=== PATIENT | female | born 1960 | race Caucasian/White ===

== ENCOUNTER 2019-11-04 09:23 | Outpatient (CLI) | payer OTHER, SELFPAY ==
[2019-11-04 10:06] LABS: Basophils Absolute Auto 0.1 K/mm3 (0.0-0.1); Basophils Percent Auto 0.8 % (0.2-1.2); Eosinophils Absolute Auto 0.3 K/mm3 (0-0.3); Eosinophils Percent Auto 4.5 % (0-4.4); Hematocrit 37.3 % (37.0-47.0); Hemoglobin 12.3 g/dL (12.0-15.0); Immature Granulocyte Absolute 0.02 K/mm3 (0.00-0.031); Immature Granulocyte Percent A 0.3 % (0-0.5); Lymphocytes Percent Auto 30.5 % (18.3-44.2); Mean Corpuscular Hemoglobin 29.8 pg (26-34); Mean Corpuscular Volume 90.3 fl (80-100); Mean Platelet Volume 9.8 fl (7.4-10.4); Monocytes Absolute Auto 0.6 K/mm3 (0.1-0.6); Monocytes Percent Auto 9.6 % (2.6-8.5); Neutrophils Absolute Auto 3.4 K/mm3 (1.3-6.7); Neutrophils Percent Auto 54.3 % (45.5-73.1); Platelet Count Result 234 k/mm3 (150-375); Red Blood Count 4.13 M/mm3 (4.2-5.4); Red Cell Distribution Width 13.1 % (11.5-14.5); White Blood Count 6.2 K/mm3 (4.5-10.0)
[2019-11-04 10:21] LABS: Aspartate Amino Transferase 31 U/L (14-36); Blood Urea Nitrogen 22 mg/dL (7-17); Calcium 10.1 mg/dL (8.4-10.2); Carbon Dioxide 28 mmol/L (22-30); Chloride 103 mmol/L (98-107); Estimated Glomerular Filt Rate > 60; Glucose 108 mg/dL (65-105); Potassium 4.5 mmol/L (3.4-5.0); Sodium 137 mmol/L (137-145)
== END 2019-11-04 09:24 | disposition home or self-care (01) ==
PROVIDERS: PCP Internal Medicine; Visit Provider Physician Assistant Surgical
DX: Z79.1 Long term (current) use of non-steroidal anti-inflammatories (NSAID) (principal)
CPT/HCPCS: 36415; 80048; 84450; 85025

== ENCOUNTER 2020-02-04 10:00 | Outpatient (CLI) | payer OTHER, SELFPAY ==
--- NOTE | ~2020-02-04 | MM_ITS ---
EXAMINATION: MM screening armin BI w chente HISTORY: Screening mammogram TECHNIQUE: Craniocaudal and mediolateral oblique 3-D tomosynthesis images were obtained and synthetic 2-D images were generated. CAD analysis was submitted and interpreted. COMPARISON: 01/25/2019, 01/21/2018, 01/19/2017 bilateral digital screening mammogram examinations BREAST PARENCHYMAL COMPOSITION: The breasts are almost entirely fatty. FINDINGS: Small stable circumscribed low-density benign-appearing axillary tail nodes are noted bilat erally. There is no evidence of suspicious mass, calcification, or architectural distortion to sugges t malignancy in either breast. There has been no suspicious interval change. IMPRESSION: 1. No mammographic evidence of malignancy. 2. Recommend routine screening mammography in one year. BI-RADS Category 2: Benign finding(s). Reviewed, dictated and finalized at location A.
== END 2020-02-04 10:01 | disposition home or self-care (01) ==
LOC: ANHIMG 10:01
PROVIDERS: PCP Internal Medicine; Visit Provider Obstetrics & Gynecology
DX: Z12.31 Encounter for screening mammogram for malignant neoplasm of breast (principal)
CPT/HCPCS: 77063; 77067

== ENCOUNTER 2020-04-10 10:40 | Outpatient (CLI) | payer OTHER, SELFPAY ==
[2020-04-10 11:08] LABS: Alanine Aminotransferase 39 U/L (4-35); Albumin Level 4.3 g/dL (3.5-5.1); Alkaline Phosphatase 107 U/L (38-126); Anion Gap 6 mmol/L (8-16); Aspartate Amino Transferase 39 U/L (14-36); Bilirubin,Total 0.6 mg/dL (0.2-1.3); Blood Urea Nitrogen 13 mg/dL (7-17); Calcium 10.5 mg/dL (8.4-10.2); Carbon Dioxide 32 mmol/L (22-30); Chloride 102 mmol/L (98-107); Cholesterol 187 mg/dL (0-200); Estimated Glomerular Filt Rate > 60; Glucose 108 mg/dL (65-105); HDL Direct 50 mg/dL; Potassium 4.5 mmol/L (3.4-5.0); Sodium 140 mmol/L (137-145); Triglycerides 128 mg/dL (<150)
[2020-04-10 11:19] LABS: LDL Cholesterol Direct 79 mg/dL
[2020-04-10 11:31] LABS: Hemoglobin A1C 5.8 % (<5.7)
[2020-04-10 12:04] LABS: Vitamin D 25 Hydroxy 48.8 ng/mL
== END 2020-04-10 10:41 | disposition home or self-care (01) ==
LOC: ANHLAB 10:41
PROVIDERS: PCP Internal Medicine; Visit Provider Nurse Practitioner
DX: Z13.6 Encounter for screening for cardiovascular disorders (principal); R73.02 Impaired glucose tolerance (oral); E55.9 Vitamin D deficiency, unspecified
CPT/HCPCS: 36415; 80053; 80061; 82306; 83036

== ENCOUNTER 2020-05-08 08:40 | Outpatient (CLI) | payer OTHER, SELFPAY ==
[2020-05-08 09:09] LABS: Calcium 10.1 mg/dL (8.4-10.2)
[2020-05-10 11:46] LABS: Parathyroid Intact 32.4 pg/mL (7.5-53.5)
== END 2020-05-08 08:41 | disposition home or self-care (01) ==
LOC: ANHLAB 08:41
PROVIDERS: PCP Internal Medicine; Visit Provider Internal Medicine
DX: E83.52 Hypercalcemia (principal)
CPT/HCPCS: 36415; 82310; 83970

== ENCOUNTER 2020-05-22 11:59 | Outpatient (CLI) | payer OTHER, SELFPAY ==
[2020-05-22 09:19] LABS: Anion Gap 4 mmol/L (8-16); Blood Urea Nitrogen 17 mg/dL (7-17); Calcium 9.4 mg/dL (8.4-10.2); Carbon Dioxide 32 mmol/L (22-30); Chloride 99 mmol/L (98-107); Estimated Glomerular Filt Rate > 60; Glucose 102 mg/dL (65-105); Potassium 3.8 mmol/L (3.4-5.0); Sodium 135 mmol/L (137-145)
== END 2020-05-22 12:00 ==
LOC: ANHIMG 06-16 11:59
PROVIDERS: PCP Internal Medicine; Visit Provider Nurse Practitioner
DX: I10 Essential (primary) hypertension (principal)
CPT/HCPCS: 36415; 80048

== ENCOUNTER 2020-07-24 08:56 | Outpatient (CLI) | payer OTHER, SELFPAY ==
[2020-07-24 09:18] LABS: Basophils Absolute Auto 0.1 K/mm3 (0.0-0.1); Basophils Percent Auto 0.8 % (0.2-1.2); Eosinophils Absolute Auto 0.2 K/mm3 (0-0.3); Eosinophils Percent Auto 2.9 % (0-4.4); Hematocrit 36.8 % (37.0-47.0); Hemoglobin 12.4 g/dL (12.0-15.0); Immature Granulocyte Absolute 0.01 K/mm3 (0.00-0.031); Immature Granulocyte Percent A 0.2 % (0-0.5); Lymphocytes Absolute Auto 1.78 K/mm3 (0.9-3.2); Lymphocytes Percent Auto 27.3 % (18.3-44.2); Mean Corpuscular HGB Conc 33.7 g/dl (32-36); Mean Corpuscular Hemoglobin 30.4 pg (26-34); Mean Corpuscular Volume 90.2 fl (80-100); Mean Platelet Volume 9.6 fl (7.4-10.4); Monocytes Absolute Auto 0.6 K/mm3 (0.1-0.6); Monocytes Percent Auto 8.6 % (2.6-8.5); Neutrophils Absolute Auto 3.9 K/mm3 (1.3-6.7); Neutrophils Percent Auto 60.2 % (45.5-73.1); Platelet Count Result 238 k/mm3 (150-375); Red Blood Count 4.08 M/mm3 (4.2-5.4); Red Cell Distribution Width 12.9 % (11.5-14.5); White Blood Count 6.5 K/mm3 (4.5-10.0)
[2020-07-24 10:21] LABS: Anion Gap 4 mmol/L (8-16); Aspartate Amino Transferase 32 U/L (14-36); Blood Urea Nitrogen 18 mg/dL (7-17); Calcium 10.1 mg/dL (8.4-10.2); Carbon Dioxide 27 mmol/L (22-30); Chloride 107 mmol/L (98-107); Estimated Glomerular Filt Rate > 60; Glucose 105 mg/dL (65-105); Potassium 4.2 mmol/L (3.4-5.0); Sodium 138 mmol/L (137-145)
== END 2020-07-24 08:57 | disposition home or self-care (01) ==
LOC: ANHLAB 08:57
PROVIDERS: PCP Internal Medicine; Visit Provider Orthopaedic Surgery
DX: Z79.1 Long term (current) use of non-steroidal anti-inflammatories (NSAID) (principal)
CPT/HCPCS: 36415; 80048; 84450; 85025

== ENCOUNTER 2020-10-29 08:00 | Outpatient (CLI) | payer OTHER, SELFPAY ==
[2020-10-29 08:31] LABS: Alanine Aminotransferase 33 U/L (4-35); Albumin Level 4.2 g/dL (3.5-5.1); Alkaline Phosphatase 97 U/L (38-126); Anion Gap 5 mmol/L (8-16); Aspartate Amino Transferase 35 U/L (14-36); Bilirubin,Total 0.2 mg/dL (0.2-1.3); Blood Urea Nitrogen 24 mg/dL (7-17); Calcium 10.1 mg/dL (8.4-10.2); Carbon Dioxide 28 mmol/L (22-30); Chloride 105 mmol/L (98-107); Cholesterol 183 mg/dL (0-200); Estimated Glomerular Filt Rate > 60; Glucose 105 mg/dL (65-105); HDL Direct 58 mg/dL; Potassium 4.5 mmol/L (3.4-5.0); Sodium 138 mmol/L (137-145); Triglycerides 130 mg/dL (<150)
[2020-10-29 08:34] LABS: Hemoglobin A1C 5.7 % (<5.7)
[2020-10-29 08:42] LABS: LDL Cholesterol Direct 64 mg/dL
[2020-10-29 09:20] LABS: Vitamin D 25 Hydroxy 49.4 ng/mL
== END 2020-10-29 08:01 | disposition home or self-care (01) ==
LOC: ANHLAB 08:02
PROVIDERS: PCP Internal Medicine; Visit Provider Internal Medicine
DX: I10 Essential (primary) hypertension (principal); E55.9 Vitamin D deficiency, unspecified; R73.02 Impaired glucose tolerance (oral); E78.5 Hyperlipidemia, unspecified
CPT/HCPCS: 36415; 80053; 80061; 82306; 83036

== ENCOUNTER 2021-01-28 10:30 | Outpatient (CLI) | payer OTHER, SELFPAY ==
[2021-01-28 11:06] LABS: Basophils Percent Auto 0.6 % (0.2-1.2); Eosinophils Absolute Auto 0.7 K/mm3 (0-0.3); Eosinophils Percent Auto 10.3 % (0-4.4); Hematocrit 36.1 % (37.0-47.0); Hemoglobin 12.2 g/dL (12.0-15.0); Immature Granulocyte Absolute 0.01 K/mm3 (0.00-0.031); Immature Granulocyte Percent A 0.1 % (0-0.5); Lymphocytes Percent Auto 24.3 % (18.3-44.2); Mean Corpuscular HGB Conc 33.8 g/dl (32-36); Mean Corpuscular Hemoglobin 30.2 pg (26-34); Mean Corpuscular Volume 89.4 fl (80-100); Mean Platelet Volume 9.8 fl (7.4-10.4); Monocytes Absolute Auto 0.5 K/mm3 (0.1-0.6); Monocytes Percent Auto 7.2 % (2.6-8.5); Neutrophils Percent Auto 57.5 % (45.5-73.1); Platelet Count Result 230 k/mm3 (150-375); Red Blood Count 4.04 M/mm3 (4.2-5.4); Red Cell Distribution Width 12.6 % (11.5-14.5)
[2021-01-28 11:25] LABS: Anion Gap 7 mmol/L (8-16); Aspartate Amino Transferase 32 U/L (14-36); Blood Urea Nitrogen 21 mg/dL (7-17); Calcium 10.2 mg/dL (8.4-10.2); Carbon Dioxide 26 mmol/L (22-30); Chloride 105 mmol/L (98-107); Estimated Glomerular Filt Rate > 60; Glucose 116 mg/dL (65-110); Potassium 3.9 mmol/L (3.4-5.0); Sodium 138 mmol/L (137-145)
== END 2021-01-28 10:31 | disposition home or self-care (01) ==
PROVIDERS: PCP Internal Medicine; Visit Provider Physician Assistant Surgical
DX: Z51.81 Encounter for therapeutic drug level monitoring (principal); Z79.1 Long term (current) use of non-steroidal anti-inflammatories (NSAID)
CPT/HCPCS: 36415; 80048; 84450; 85025

== ENCOUNTER 2021-02-07 08:03 | Outpatient (CLI) | payer OTHER, SELFPAY ==
--- NOTE | ~2021-02-07 | MM_ITS ---
EXAMINATION: MM screening armin BI w chente HISTORY: Screening TECHNIQUE: Craniocaudal and mediolateral oblique 3-D tomosynthesis images were obtained and synthetic 2-D images were generated. CAD analysis was submitted and interpreted. COMPARISON: Comparison to multiple prior studies sequentially, with oldest reviewed study dated 01/21. BREAST PARENCHYMAL COMPOSITION: There are scattered areas of fibroglandular density. FINDINGS: There is no evidence of suspicious mass, calcification, or architectural distortion to sugg est malignancy in either breast. There has been no suspicious interval change. IMPRESSION: 1. No mammographic evidence of malignancy. 2. Recommend routine screening mammography in one year. BI-RADS Category 1: Negative Reviewed, dictated and finalized at location A.
== END 2021-02-07 08:04 | disposition home or self-care (01) ==
LOC: ANHIMG 08:05
PROVIDERS: PCP Internal Medicine; Visit Provider Student in an Organized Health Care Education/Training Program
DX: Z12.31 Encounter for screening mammogram for malignant neoplasm of breast (principal)
CPT/HCPCS: 77063; 77067

== ENCOUNTER 2021-05-14 09:10 | Outpatient (CLI) | payer OTHER, SELFPAY ==
[2021-05-14 10:29] LABS: Alanine Aminotransferase 68 U/L (4-35); Albumin Level 4.4 g/dL (3.5-5.1); Alkaline Phosphatase 111 U/L (38-126); Anion Gap 7 mmol/L (8-16); Aspartate Amino Transferase 48 U/L (14-36); Bilirubin,Total 0.6 mg/dL (0.2-1.3); Blood Urea Nitrogen 17 mg/dL (7-17); Calcium 10.3 mg/dL (8.4-10.2); Carbon Dioxide 28 mmol/L (22-30); Chloride 103 mmol/L (98-107); Estimated Glomerular Filt Rate > 60; Glucose 108 mg/dL (65-110); Potassium 4.4 mmol/L (3.4-5.0); Sodium 138 mmol/L (137-145)
[2021-05-14 10:46] LABS: Free T4 Free Thyroxine 0.96 ng/mL (0.78-2.19)
[2021-05-14 12:34] LABS: Hemoglobin A1C 5.6 % (<5.7)
== END 2021-05-14 09:11 | disposition home or self-care (01) ==
LOC: ANHLAB 09:11
PROVIDERS: PCP Internal Medicine; Visit Provider Nurse Practitioner
DX: R53.83 Other fatigue (principal); R73.03 Prediabetes; I10 Essential (primary) hypertension
CPT/HCPCS: 36415; 80053; 83036; 84439; 84443

== ENCOUNTER → 2021-07-12 02:10 | Outpatient (CLI) | payer OTHER, SELFPAY ==
[2021-07-12 20:09] LABS: SARS-CoV-2 RNA PCR Negative
== END ==
PROVIDERS: PCP Internal Medicine; Visit Provider Podiatrist Foot & Ankle Surgery
DX: Z01.812 Encounter for preprocedural laboratory examination (principal); Z20.822 Contact with and (suspected) exposure to COVID-19
CPT/HCPCS: C9803; U0003; U0005

== ENCOUNTER 2021-07-12 08:16 | Outpatient (CLI) | payer OTHER, SELFPAY ==
--- NOTE | 2021-07-12 08:27 | ECG_ITS ---
Measurements Intervals [place] Rate: 67 P: 48 NM: 144 QRS: 4 QRSD: 90 T: 26 QT: 387 QTc: 409 Interpretive Statements SINUS RHYTHM INCOMPLETE RIGHT BUNDLE BRANCH BLOCK BORDERLINE R WAVE PROGRESSION, ANTERIOR LEADS CONSIDER INFERIOR INFARCT, AGE INDETERMINATE BASELINE ARTIFACT- I, III, AVR, AVL ABNORMAL ECG Electronically Signed On 07-12-2021 8:59:48 EQUIPMENT SPECIALIST by Stiven Sol D.O.
== END 2021-07-12 08:17 | disposition home or self-care (01) ==
LOC: ANHSURGERY 08:19
PROVIDERS: PCP Internal Medicine; Visit Provider Podiatrist Foot & Ankle Surgery
DX: Z01.818 Encounter for other preprocedural examination (principal); I10 Essential (primary) hypertension; R94.31 Abnormal electrocardiogram [ECG] [EKG]
CPT/HCPCS: 93005

== ENCOUNTER 2021-07-15 01:14 | Day surgery (SDC) | payer OTHER, SELFPAY ==
[2021-07-07 14:56] VITALS: BMI 35.4
--- NOTE | 2021-07-07 15:12 | PC.NURSE ---
Report to the Outpatient Waiting Room, entrance under the green pavilion located off [facility], at time 9:00 on date 07/15/21. OR Time: 11:00. - You will be asked a series of questions to screen for COVID 19 for your protection. - A mask is required within the hospital. - No visitors are allowed at this time. Preoperative COVID Testing Requirements: No COVID Test needed if: (proof is required; if not received patient will have Rapid Test prior to entry) - Patient has received COVID Vaccine at least 14 days prior to procedure date or - Patient has positive COVID test result within last 90 days of surgery date. COVID Test needed if above criteria is not met If not COVID vaccinated a COVID test must be conducted within 72 hours of surgery and patient is asked to isolate self from time of testing until procedure. You will go to the [employer] [facility] for your COVID testing. The [employer] [facility] site is located at the corner of [address] [facility]. COVID TEST 07/12 AT 0935 You will only be called if COVID results are positive and your surgeon may reschedule your elective surgery date. Patients may have clear liquids (water, carbonated beverages, clear teas, apple juice) until 3 hours prior to surgery (8:00) with a maximum of 20 ounces. - No food from midnight until time of surgery Take the following medications with a SIP of water the morning of surgery: NONE Medications to discontinue per physician: VITAMINS/SUPPLEMENTS Date to take last dose: 07/11/[address] HO Please no make-up, nail latvian, hairspray, perfume, deodorant, or body powder the day of surgery. No jewelry (including any body piercings) or valuables the day of surgery, leave them at home. Please take a shower or bath the night before, or the morning of, surgery with an antibacterial soap. Wear comfortable, loose fitting clothing. - Jewelry must be removed prior to entering the operating room. Rings and piercings that are not removed may be cut off. - The hospital will not accept responsibility for valuables. - Please leave all valuables, including medications, at home the day of surgery. If you are going home after surgery, a licensed boom truck driver must drive you home. - NO public transportation without another adult. - We recommend that an adult stay with you for 24 hours following discharge. - We also recommend that you do not drive, make important decision, drink alcoholic beverages, or take any drugs that were not prescribed by your health care provider for at least 24 hours after your discharge time. Follow any additional instructions given to you from your surgeon. Telephone instructions given to JULIANA ZAPATA and asked if any additional questions and then verbalized understanding. Patient advised to call surgeon office or pre surgery nurse liaison [phone] if any additional questions.
--- NOTE | ~2021-07-15 | XR_ITS ---
EXAMINATION: XR surgery orthopedic DATE: 07/15/2021 12:06 INDICATION: Left foot corrective repair TECHNIQUE: 2 fluoroscopic images of the left forefoot were obtained during procedure performed by Dr. Ochoa. Radiologist was not present for the imaging or procedure. The amount of fluoroscopy time u sed during this procedure was 0.5 minutes. Total DAP was 2.19 cGycm^2. COMPARISON: None. FINDINGS: Postoperative changes at the first-fourth rays of the left forefoot. This includes a bunionectomy and realignment chevron osteotomy at the neck of the first metatarsal with screw fixation. Realignment o steotomy at the base of the first proximal phalanx with dorsal/medial sided staple fixation. Osteotom ies likely for hammertoe corrections at the heads of the second-fourth proximal phalanges. By directi on of fixation screws for arthrodesis at the second and third proximal interphalangeal joints which h ave been placed over percutaneous wires which extend from the tuft of the distal phalanx across the m iddle and proximal phalanges with the tips of the wires at the heads of the second and third metatars als. Additional axially directed percutaneous wire without a fixation screw extends from the distal t uft of the fourth distal phalanx into the head of the fourth metatarsal. Alignment appears near-anato juana. No other fractures identified. IMPRESSION: 1. Fluoroscopy utilized during orthopedic procedure on the first-fourth rays of the left forefoot as detailed above. See procedure note for further detail. Reviewed, dictated and finalized at location B. AULIC BLOCKER
--- NOTE | 2021-07-15 07:09 | WPDHPUPDATE1 ---
History and Physical Update Update Date/Time: 07/15/21 07:09 History and Physical has been reviewed, including an updated exam of the patient. There are NO changes in the patient's condition. Risks, benefits, and alternatives have been discussed and questions answered. Patient agrees to proceed with procedure.
--- NOTE | 2021-07-15 09:50 | WPDANESEPPF ---
Anes - Initial Pre Proc Eval Procedure: Operation Date: 07/15/21 11:00 Proposed Procedures p Tristen Bridger Bunionectomy Left Foot - Micky Ochoa JR, MD s Hammer Toe Repair Second through Fourth Digits Left Foot - Micky Ochoa JR, MD Date/Time: 07/15/21 09:50 Surgeon: Micky Ochoa JR, MD Pre Op Diagnosis: bunion left foot, Hammer toe 2-4 left foot Patient Data Age: 60 Gender: F Height: 1.6 m Weight: 90.72 kg Allergies Allergy/AdvReac Type Severity Reaction Status Date / Time Influenza Virus Vaccines Allergy Unknown guillain Verified 07/15/21 09:49 barre Home Medications Medication Instructions Recorded Confirmed Type cholecalciferol (vitamin D3) 25 1,000 unit PO DAILY #30 cap 05/09/19 07/15/21 Rx mcg (1,000 unit) capsule vitamin B12 1,000 mcg-folic acid See Rx Instructions SUBLINGUAL 05/09/19 07/15/21 Rx 400 mcg sublingual lozenge .COMPLEX #30 each loratadine [Claritin] 10 mg PO DAILY 05/22/19 07/15/21 History meloxicam 7.5 mg tablet 7.5 mg PO DAILY 11/10/19 07/15/21 History ascorbate calcium (vitamin C) 500 500 mg PO DAILY 03/17/20 07/15/21 History mg tablet glucosamine 750 [id number] 1 tablet PO DAILY 03/17/20 07/15/21 History no1 625 mg-C 30 mg-alanna 1 mg tablet magnesium oxide 250 mg PO DAILY 03/17/20 07/15/21 History multivitamin 1 tablet PO DAILY 03/17/20 07/15/21 History lisinopril 10 See Rx Instructions .ROUTE 02/21/21 07/15/21 Rx mg-hydrochlorothiazide 12.5 mg .COMPLEX #90 tablet tablet Porfirio's wort 300 mg tablet 300 mg PO BID tablet 06/30/21 07/15/21 History apple cider vinegar 1 mg PO DAILY 07/07/21 07/15/21 History Patient hx anesthesia problems: none Family hx anesthesia problems: none Results Review: All pre-operative results and documents have been reviewed as part of the pre-operative evaluation. FORMERLY [facility], [facility] Past Medical History Medical History Allergic rhinitis Anemia Benign essential hypertension Chronic knee pain COPD (chronic obstructive pulmonary disease) History of Guillain-[place] syndrome Impaired glucose tolerance Obesity COLIN (obstructive sleep apnea) Periorbital cellulitis Screening for breast cancer Screening for osteoporosis Vitamin D deficiency, unspecified Surgical History Surgical History History of hysterectomy S/P left rotator cuff repair Family History Family History Mother Family history of malignant neoplasm of breast in first degree relative COPD (chronic obstructive pulmonary disease) Father Lung cancer Throat cancer Social History Social History Smoking packs per day: 1.5 Smoking cigarettes per day: 30.0 Years smoked: 1 Smoking pack-years: 1.50 Smoking status: Never smoker Tobacco type: cigarettes Smoking end date: 11/18/97 Alcohol intake: never Substance use: never Substance use type: does not use Living arrangements: with family Gender identity (if verbalized by the patient): Female Spiritual care concerns: No Anes - Eval Final PreProcedure Day of Procedure 07/15/21 09:50 Patient weight: obese Heart: regular rate and rhythm Lungs: clear to auscultation Airway: Mallampati scale class II Neurological: alert and oriented Last oral intake: >/= 8 hours ASA classification: III Emergent: no Anesthetic plan: proceed Anesthesia type and monitoring: general LMA and standard monitoring Results Review: All pre-operative results and documents have been reviewed as part of the pre-operative evaluation. Informed Consent: The patient's anesthetic plan and its attendant risks and benefits were discussed with the patient/family/POA. Questions were solicited and answers provided to the satisfaction of the patient/family/POA.
[2021-07-15 09:51] VITALS: BP 149/95; PULSE 66; RESP 18; TEMP 36.9; O2SAT 95
[2021-07-15] MEDS: LACTATED RINGERS 1,000 ML 30 ML IV CONT (10:00)
[2021-07-15] MEDS: ceFAZolin 2 GM/D5W 50 ML 2 GM/50 ML BAG IVPB (10:20)
--- NOTE | 2021-07-15 10:23 | WPDANESPNB ---
Anes - Peripheral Nerve Block Date/Time: 07/15/21 10:23 I have discussed with the patient/family/POA the placement of a peripheral nerve block for post-operative pain management, including associated risks, benefits, complications, and side effects. Alternative methods of post-operative analgesia were detailed. Questions were solicited and answers provided to the satisfaction of the patient/family/POA. Time-Out: A pre-procedural Time-Out was completed immediately before starting the procedure and confirmed: Patient Identification, Site, Procedure, Patient Position and the Availability of Requisite Equipment. Clinical Indications: Acute post-operative pain management requested by the operative surgeon. Nerve Block Insertion Note Anes-nerve block: posterior fossa sciatic left and other (Saphenous left) Patient position: supine Skin prep: chlorhexidine Needle: 22 gauge, stimulating, insulated echogenic needle. Needle length: 80 mm Technique: nerve stimulation lost at (mA) Technique comment: mid2mg [id number] Injectate: bupivacaine 0.5% with epi 5 mcg/ml (20/10ml no epi) and dexamethasone (mg) (4) Observations: tolerated well Complications: none Procedure start time:: 1020 Procedure end time:: 1025
[2021-07-15 12:18] VITALS: BP 138/79; PULSE 78; RESP 14; TEMP 36.5; O2SAT 95
[2021-07-15 12:30] VITALS: BP 124/74; PULSE 70; RESP 14; O2SAT 95
--- NOTE | 2021-07-15 12:34 | W.PM.PROC2 ---
Procedure Note - Detailed Date of Procedure 07/15/21 Pre-op Diagnosis 1.Bunion left foot 2.Hammer toe 2 through 4 left foot Post-op Diagnosis same Procedure Performed 1. Tristen Bridger Bunionectomy left foot 2. Proximal interphalangeal joint arthrodesis of the 2nd through fourth digits of the left foot 3. Extensor tenotomy of the 2nd and 3rd digits of the left foot Surgeon Micky Ochoa JR, DPRyan Anesthesia general and regional Indications Pain to the left forefoot Description of Procedure Under mild sedation, the patient was brought in to the operating room, placed on the operating table in the supine position. A pneumatic ankle tourniquet was placed about the patient's left ankle. Following general anesthesia, and a previous popliteal fossa block to the left lower extremity, the foot was then scrubbed, prepped, and draped in the usual aseptic manner. An Esmarch bandage was then used to exsanguinate the patient's left foot and the pneumatic ankle tourniquet was then inflated. An incision was made along the medial aspect of the first metatarsophalangeal joint along the contour of the bunion deformity. The incision was continued deep down through the subcutaneous tissues using sharp and blunt dissection. All bleeders were ligated and cauterized as necessary. At this point, dissection was continued to the first interspace via the original skin incision where the adductor hallucis tendon was initially identified and transected. Next the lateral capsule was incised as well as releasing the lateral fibular sesamoid both laterally, distally and proximally. This freed the lateral contracture present to the joint. Attention was then directed to the medial aspect of the first metatarsophalangeal joint of the left foot where a periosteum and capsular incision was made the full length of the skin incision just proximal to the interphalangeal joint of the hallux to the central shaft of the first metatarsal. The periosteum and capsular structures were reflected superiorly and inferiorly exposing the base of the proximal phalanx as well as the distal first metatarsal. Next, the medial eminence was resected from the first metatarsal head utilizing a sagittal bone saw. Next, a V-type osteotomy was created in the distal metaphyseal region of the bone utilizing a sagittal bone saw. The apex of the osteotomy pointed distally with the arms pointing proximal plantarly and proximal dorsally. The dorsal arm was made longer to accommodate internal fixation. Upon completion of the osteotomy, the capital fragment was distracted and shifted laterally into more corrected position and impacted upon the first metatarsal shaft. Next two 3.0 mm partially threaded cannulated screws were driven from dorsal to plantar across the osteotomy site with excellent compression noted. The temporary fixation was then removed. Next, the remaining medial bone shaft was resected utilizing a sagittal bone saw. Attention was then directed to the proximal phalanx medially where a small 2 mm wedge resection of bone was taken from the proximal phalanx. After the wedge resection was performed, an 8 mm compression staple was placed from medial to lateral across the osteotomy site with excellent compression noted. After this osteotomy was performed, the hallux was noted to be in a rectus position as well as significant reduction of the first intermetatarsal angle was noted with live fluoroscopic imaging. The screws and staple were appropriately aligned and oriented utilizing fluoroscopy. The wound site was then flushed with copious amounts of sterile saline. Next, a rotary power bur was used to smooth out any rough surfaces from the base of the proximal phalanx as well as the head of the first metatarsal, both dorsally, medially and laterally. The wound site was once again flushed with copious amounts of sterile saline. Next, the redundant capsular medial tissue was resected from the
[2021-07-15 12:50] VITALS: BP 136/88; PULSE 73; RESP 12; O2SAT 95
[2021-07-15 13:00] VITALS: BP 146/81; PULSE 67; RESP 16
== END 2021-07-15 14:15 | disposition home or self-care (01) ==
PROVIDERS: PCP Internal Medicine; Visit Provider Podiatrist Foot & Ankle Surgery
PROC: (CPT 28299; principal; 2021-07-15 11:00)
PROC: (CPT 28299; 2021-07-15 11:00)
DX: M21.612 Bunion of left foot (principal); M20.42 Other hammer toe(s) (acquired), left foot; G89.18 Other acute postprocedural pain; I10 Essential (primary) hypertension; J44.9 Chronic obstructive pulmonary disease, unspecified; G47.33 Obstructive sleep apnea (adult) (pediatric); E55.9 Vitamin D deficiency, unspecified; D64.9 Anemia, unspecified; Z87.891 Personal history of nicotine dependence; E66.9 Obesity, unspecified; Z68.36 Body mass index [BMI] 36.0-36.9, adult
CPT/HCPCS: 28299; 28285 ×3; 64445; 64450; C1713; C1776; C9290; J0690; J1100; J2250; J2405; J2704; J3010; J7120

== ENCOUNTER 2021-09-05 16:46 | Outpatient (CLI) | payer OTHER, SELFPAY ==
--- NOTE | ~2021-09-05 | US_ITS ---
US venous doppler [facility] DATE: 09/05/2021 17:33 INDICATION: Left lower extremity pain and swelling TECHNIQUE: Real-time and color flow imaging and Doppler analysis COMPARISON: None FINDINGS: There is spontaneous and phasic flow and normal augmentation and color flow signal and norm al compression of the deep veins of the left lower extremity. The left greater saphenous vein is kennedy nt. IMPRESSION: No evidence of deep venous thrombosis of left leg Reviewed, dictated and finalized at Location A. Reviewed, dictated and finalized at location A. ECTOR WATCH ASSEMBLY
== END 2021-09-05 16:47 | disposition home or self-care (01) ==
LOC: ANHIMG 16:52
PROVIDERS: PCP Internal Medicine; Visit Provider Podiatrist Foot & Ankle Surgery
DX: M79.662 Pain in left lower leg (principal)
CPT/HCPCS: 93971

== ENCOUNTER 2021-09-19 09:18 | Outpatient (CLI) | payer OTHER, SELFPAY ==
[2021-09-19 09:37] LABS: Basophils Absolute Auto 0.1 K/mm3 (0.0-0.1); Basophils Percent Auto 0.7 % (0.2-1.2); Eosinophils Absolute Auto 0.3 K/mm3 (0-0.3); Eosinophils Percent Auto 4.9 % (0-4.4); Hematocrit 37.2 % (37.0-47.0); Hemoglobin 12.4 g/dL (12.0-15.0); Immature Granulocyte Absolute 0.03 K/mm3 (0.00-0.031); Immature Granulocyte Percent A 0.4 % (0-0.5); Lymphocytes Percent Auto 27.3 % (18.3-44.2); Mean Corpuscular HGB Conc 33.3 g/dl (32-36); Mean Corpuscular Hemoglobin 30.3 pg (26-34); Mean Platelet Volume 9.3 fl (7.4-10.4); Monocytes Absolute Auto 0.7 K/mm3 (0.1-0.6); Monocytes Percent Auto 9.5 % (2.6-8.5); Neutrophils Percent Auto 57.2 % (45.5-73.1); Platelet Count Result 233 k/mm3 (150-375); Red Blood Count 4.09 M/mm3 (4.2-5.4); Red Cell Distribution Width 13.1 % (11.5-14.5)
[2021-09-19 09:51] LABS: Anion Gap 5 mmol/L (8-16); Aspartate Amino Transferase 49 U/L (14-36); Blood Urea Nitrogen 22 mg/dL (7-17); Calcium 9.7 mg/dL (8.4-10.2); Carbon Dioxide 29 mmol/L (22-30); Chloride 104 mmol/L (98-107); Estimated Glomerular Filt Rate > 60; Glucose 106 mg/dL (65-110); Potassium 4.4 mmol/L (3.4-5.0); Sodium 138 mmol/L (137-145)
== END 2021-09-19 09:19 | disposition home or self-care (01) ==
LOC: ANHLAB 09:21
PROVIDERS: PCP Internal Medicine; Visit Provider Physician Assistant Surgical
DX: Z51.81 Encounter for therapeutic drug level monitoring (principal); Z79.1 Long term (current) use of non-steroidal anti-inflammatories (NSAID)
CPT/HCPCS: 36415; 80048; 84450; 85025

== ENCOUNTER 2021-11-12 08:51 | Outpatient (CLI) | payer OTHER, SELFPAY ==
[2021-11-12 09:27] LABS: Alanine Aminotransferase 66 U/L (4-35); Albumin Level 4.2 g/dL (3.5-5.1); Alkaline Phosphatase 120 U/L (38-126); Anion Gap 4 mmol/L (8-16); Aspartate Amino Transferase 63 U/L (14-36); Bilirubin,Total 0.3 mg/dL (0.2-1.3); Blood Urea Nitrogen 15 mg/dL (7-17); Carbon Dioxide 31 mmol/L (22-30); Chloride 103 mmol/L (98-107); Cholesterol 183 mg/dL (0-200); Estimated Glomerular Filt Rate > 60; Glucose 106 mg/dL (65-110); HDL Direct 55 mg/dL; Potassium 4.7 mmol/L (3.4-5.0); Sodium 138 mmol/L (137-145); Triglycerides 130 mg/dL (<150)
[2021-11-12 09:38] LABS: LDL Cholesterol Direct 61 mg/dL
[2021-11-12 09:44] LABS: Hemoglobin A1C 5.5 % (<5.7)
[2021-11-12 09:58] LABS: Vitamin D 25 Hydroxy 68.3 ng/mL
== END 2021-11-12 08:52 | disposition home or self-care (01) ==
LOC: ANHLAB 08:53
PROVIDERS: PCP Internal Medicine; Visit Provider Internal Medicine
DX: R73.03 Prediabetes (principal); I10 Essential (primary) hypertension; Z13.220 Encounter for screening for lipoid disorders; E55.9 Vitamin D deficiency, unspecified
CPT/HCPCS: 36415; 80053; 80061; 82306; 83036

== ENCOUNTER → 2021-11-26 00:02 | Outpatient (CLI) | payer OTHER, SELFPAY ==
[2021-11-26 14:52] LABS: SARS-CoV-2 RNA PCR Negative
== END ==
PROVIDERS: PCP Internal Medicine; Visit Provider Internal Medicine
DX: Z20.822 Contact with and (suspected) exposure to COVID-19 (principal)
CPT/HCPCS: C9803; U0003; U0005

== ENCOUNTER 2022-01-07 09:02 | Outpatient (CLI) | payer OTHER, SELFPAY ==
[2022-01-07 10:16] LABS: Alanine Aminotransferase 32 U/L (6-35); Albumin Level 4.3 g/dL (3.5-5.1); Alkaline Phosphatase 104 U/L (38-126); Anion Gap 5 mmol/L (8-16); Aspartate Amino Transferase 32 U/L (14-36); Bilirubin,Total 0.4 mg/dL (0.2-1.3); Blood Urea Nitrogen 21 mg/dL (7-17); Calcium 9.9 mg/dL (8.4-10.2); Carbon Dioxide 30 mmol/L (22-30); Chloride 103 mmol/L (98-107); Estimated Glomerular Filt Rate > 60; Glucose 98 mg/dL (65-110); Potassium 4.9 mmol/L (3.4-5.0); Sodium 138 mmol/L (137-145)
== END 2022-01-07 09:03 | disposition home or self-care (01) ==
LOC: ANHLAB 09:04
PROVIDERS: PCP Internal Medicine; Visit Provider Orthopaedic Surgery
DX: Z79.1 Long term (current) use of non-steroidal anti-inflammatories (NSAID) (principal)
CPT/HCPCS: 36415; 80053

== ENCOUNTER 2022-03-15 08:08 | Outpatient (CLI) | payer OTHER, SELFPAY ==
--- NOTE | ~2022-03-15 | MM_ITS ---
EXAMINATION: MM screening armin BI w chente HISTORY: Screening mammogram TECHNIQUE: Craniocaudal and mediolateral oblique 3-D tomosynthesis images were obtained and synthetic 2-D images were generated. CAD analysis was submitted and interpreted. COMPARISON: 02/07/2021, 02/04/2020, 01/25/2019 bilateral screening mammogram examinations BREAST PARENCHYMAL COMPOSITION: The breasts are almost entirely fatty. FINDINGS: There is no evidence of suspicious mass, calcification, or architectural distortion to sugg est malignancy in either breast. There has been no suspicious interval change. IMPRESSION: 1. No mammographic evidence of malignancy. 2. Recommend routine screening mammography in one year. BI-RADS Category 1: Negative Reviewed, dictated and finalized at location A.
== END 2022-03-15 08:09 | disposition home or self-care (01) ==
PROVIDERS: PCP Internal Medicine; Visit Provider Internal Medicine
DX: Z12.31 Encounter for screening mammogram for malignant neoplasm of breast (principal)
CPT/HCPCS: 77063; 77067

== ENCOUNTER 2022-09-16 09:02 | Outpatient (CLI) | payer OTHER, SELFPAY ==
[2022-09-16 09:27] LABS: Alanine Aminotransferase 29 U/L (6-35); Albumin Level 4.3 g/dL (3.5-5.1); Alkaline Phosphatase 106 U/L (38-126); Anion Gap 5 mmol/L (8-16); Aspartate Amino Transferase 34 U/L (14-36); Bilirubin,Total 0.5 mg/dL (0.2-1.3); Blood Urea Nitrogen 24 mg/dL (7-17); Calcium 9.8 mg/dL (8.4-10.2); Carbon Dioxide 29 mmol/L (22-30); Chloride 104 mmol/L (98-107); Cholesterol 195 mg/dL (0-200); Estimated Glomerular Filt Rate > 60; Glucose 109 mg/dL (65-110); HDL Direct 50 mg/dL; Potassium 4.4 mmol/L (3.4-5.0); Sodium 138 mmol/L (137-145); Triglycerides 123 mg/dL (<150)
[2022-09-16 09:30] LABS: Hemoglobin A1C 5.6 % (<5.7)
[2022-09-16 09:38] LABS: LDL Cholesterol Direct 81 mg/dL
[2022-09-16 10:34] LABS: Vitamin D 25 Hydroxy 53.3 ng/mL
== END 2022-09-16 09:03 | disposition home or self-care (01) ==
PROVIDERS: PCP Internal Medicine; Visit Provider Nurse Practitioner
DX: R73.03 Prediabetes (principal); Z13.220 Encounter for screening for lipoid disorders; E55.9 Vitamin D deficiency, unspecified
CPT/HCPCS: 36415; 80053; 80061; 82306; 83036

== ENCOUNTER 2022-11-14 17:07 | Emergency (ER) | payer OTHER, SELFPAY ==
[2022-11-14 17:29] VITALS: BP 132/86; PULSE 70; RESP 16; TEMP 36.2; O2SAT 99
--- NOTE | 2022-11-14 18:14 | ED.GENADULT ---
HPI - General Adult General Chief complaint: Upper Respiratory Infection Stated complaint: cold/sore throat Source: patient Mode of arrival: ambulatory Limitations: no limitations History of Present Illness HPI narrative: Patient presents for evaluation of sick symptoms for last 3 days. Symptoms include sore throat cough. Cough is nonproductive. She denies any significant shortness of breath. No fever, chills, nausea, vomiting, diarrhea. Her was recently seen for similar symptoms and told he had a viral illness. She does not smoke. She is not taking any medication for her symptoms as she did not know what would be safe while taking gabapentin. Related Data Home Medications Medication Instructions Recorded Confirmed multivitamin 1 tablet PO DAILY 03/17/20 09/19/22 [place]'s wort 300 mg tablet 300 mg PO BID 06/30/21 09/19/22 Allergies Allergy/AdvReac Type Severity Reaction Status Date / Time Influenza Virus Vaccines Allergy Unknown guillain Verified 09/19/22 08:24 barre Review of Systems Review of Systems: CONSTITUTIONAL: Denies fever, chills, or sweats. EYES: Denies visual changes, redness, or discharge. ENT: Reports sore throat. Denies rhinorrhea, congestion, or otalgia. CARDIOVASCULAR: Denies chest pain, palpitations, or edema. RESPIRATORY: Reports cough. Denies shortness of breath. GASTROINTESTINAL: Denies abdominal pain, nausea, vomiting, or diarrhea. GENITOURINARY: Denies dysuria or hematuria. SKIN: Denies rash or itching. MUSCULOSKELETAL: Denies back pain, joint pain, or myalgia. NEUROLOGIC: Denies headache, numbness, dizziness, or weakness. PSYCHIATRIC: Denies anxiety or depression. [facility] Past Medical History Medical History Allergic rhinitis Anemia Benign essential hypertension Chronic knee pain Complex sleep apnea syndrome COPD (chronic obstructive pulmonary disease) Diabetes Hand paresthesia Hematuria History of colon polyps History of Guillain-[place] syndrome Obesity COLIN (obstructive sleep apnea) Periorbital cellulitis Screening for breast cancer Screening for osteoporosis Vitamin D deficiency, unspecified Surgical History Surgical History History of bunionectomy History of bunionectomy of left great toe July 2021 History of hysterectomy S/P left rotator cuff repair Family History Family History Mother Family history of malignant neoplasm of breast in first degree relative COPD (chronic obstructive pulmonary disease) Father Lung cancer Throat cancer Social History Social History Smoking packs per day: 1.5 Smoking cigarettes per day: 30.0 Years smoked: 1 Smoking pack-years: 1.50 Smoking status: Former smoker Tobacco type: cigarettes Smoking end date: 11/18/97 Alcohol intake: never Substance use: never Substance use type: does not use Lack of Transportation: No Lack of Food: Never True Current Housing: I Have Housing Concerned About Future Housing: No Difficulty Paying Gas/Electric Bills: No Difficulty Paying for Meds: No Currently Unemployed: No Education: High School Diploma/GED Difficulty w/ Childcare or Family Care: No Living arrangements: with family Gender identity (if verbalized by the patient): Female Spiritual care concerns: No Exam Narrative: GENERAL: Well-appearing, well-nourished, and in no acute distress. HEAD: Normocephalic, atraumatic. EYES: PERRLA and EOMI. ENT: Nares clear, no rhinorrhea or epistaxis. Mucous membranes moist. Mild posterior pharyngeal erythema without exudate. Bilateral TMs pearly strickland nonbulging NECK: Supple. No adenopathy or masses. No carotid bruits or JVD CHEST: Clear to auscultation. No respiratory distress. No wheezes ral
== END 2022-11-14 18:16 | disposition home or self-care (01) ==
PROVIDERS: Emergency Provider Nurse Practitioner; PCP Nurse Practitioner
DX: J06.9 Acute upper respiratory infection, unspecified (principal); I10 Essential (primary) hypertension; J44.9 Chronic obstructive pulmonary disease, unspecified; E11.9 Type 2 diabetes mellitus without complications
CPT/HCPCS: 87081; 87880; 99213; G0463

== ENCOUNTER 2023-06-30 08:23 | Outpatient (CLI) | payer OTHER, SELFPAY ==
[2023-06-30 08:40] LABS: Basophils Absolute Auto 0.1 K/mm3 (0.0-0.1); Basophils Percent Auto 0.8 % (0.2-1.2); Eosinophils Absolute Auto 0.4 K/mm3 (0-0.3); Eosinophils Percent Auto 5.8 % (0-4.4); Hematocrit 39.3 % (37.0-47.0); Hemoglobin 12.7 g/dL (12.0-15.0); Immature Granulocyte Absolute 0.02 K/mm3 (0.00-0.031); Immature Granulocyte Percent A 0.3 % (0-0.5); Lymphocytes Absolute Auto 1.89 K/mm3 (0.9-3.2); Mean Corpuscular HGB Conc 32.3 g/dl (32-36); Mean Corpuscular Hemoglobin 29.7 pg (26-34); Mean Corpuscular Volume 91.8 fl (80-100); Mean Platelet Volume 9.7 fl (7.4-10.4); Monocytes Absolute Auto 0.7 K/mm3 (0.1-0.6); Monocytes Percent Auto 9.3 % (2.6-8.5); Neutrophils Absolute Auto 4.2 K/mm3 (1.3-6.7); Neutrophils Percent Auto 57.8 % (45.5-73.1); Platelet Count Result 254 k/mm3 (150-375); Red Blood Count 4.28 M/mm3 (4.2-5.4); Red Cell Distribution Width 12.8 % (11.5-14.5); White Blood Count 7.3 K/mm3 (4.5-10.0)
[2023-06-30 08:58] LABS: Alanine Aminotransferase 31 U/L (6-35); Albumin Level 4.2 g/dL (3.5-5.1); Alkaline Phosphatase 106 U/L (38-126); Anion Gap 6 mmol/L (8-16); Aspartate Amino Transferase 34 U/L (14-36); Bilirubin,Total 0.6 mg/dL (0.2-1.3); Blood Urea Nitrogen 19 mg/dL (7-17); Calcium 10.2 mg/dL (8.4-10.2); Carbon Dioxide 26 mmol/L (22-30); Chloride 106 mmol/L (98-107); Estimated Glomerular Filt Rate > 60; Glucose 107 mg/dL (65-110); Potassium 4.4 mmol/L (3.4-5.0); Sodium 138 mmol/L (137-145)
== END 2023-06-30 08:24 | disposition home or self-care (01) ==
PROVIDERS: PCP Nurse Practitioner Family; Visit Provider Nurse Practitioner Family
DX: R73.02 Impaired glucose tolerance (oral) (principal); R20.2 Paresthesia of skin; I10 Essential (primary) hypertension; G47.31 Primary central sleep apnea
CPT/HCPCS: 36415; 80053; 85025

== ENCOUNTER 2023-08-06 07:24 | Outpatient (CLI) | payer OTHER, SELFPAY ==
--- NOTE | ~2023-08-06 | MM_ITS ---
EXAMINATION: MM screening armin BI w chente HISTORY: Screening TECHNIQUE: Craniocaudal and mediolateral oblique 3-D tomosynthesis images were obtained and synthetic 2-D images were generated. CAD analysis was submitted and interpreted. COMPARISON: Comparison to multiple prior studies sequentially, with oldest reviewed study dated 01/19. BREAST PARENCHYMAL COMPOSITION: There are scattered areas of fibroglandular density. FINDINGS: There is no evidence of suspicious mass, calcification, or architectural distortion to sugg est malignancy in either breast. There has been no suspicious interval change. IMPRESSION: 1. No mammographic evidence of malignancy. 2. Recommend routine screening mammography in one year. BI-RADS Category 1: Negative Reviewed, dictated and finalized at location A. [employer]ICS MANUFACTURER
== END 2023-08-06 07:25 | disposition home or self-care (01) ==
LOC: ANHIMG 07:26
PROVIDERS: PCP Nurse Practitioner Family; Visit Provider Obstetrics & Gynecology
DX: Z12.31 Encounter for screening mammogram for malignant neoplasm of breast (principal)
CPT/HCPCS: 77063; 77067

== ENCOUNTER 2024-02-02 08:25 | Outpatient (CLI) | payer OTHER, SELFPAY ==
[2024-02-02 09:08] LABS: Alanine Aminotransferase 24 U/L (6-35); Alkaline Phosphatase 94 U/L (38-126); Anion Gap 6 mmol/L (4-12); Aspartate Amino Transferase 29 U/L (14-36); Bilirubin,Total 0.5 mg/dL (0.2-1.3); Blood Urea Nitrogen 23 mg/dL (7-17); Calcium 9.8 mg/dL (8.4-10.2); Carbon Dioxide 30 mmol/L (22-30); Chloride 103 mmol/L (98-107); Estimated Glomerular Filt Rate > 60; Glucose 96 mg/dL (65-110); Potassium 4.2 mmol/L (3.4-5.0); Sodium 139 mmol/L (137-145)
== END 2024-02-02 08:26 | disposition home or self-care (01) ==
LOC: ANHLAB 08:27
PROVIDERS: PCP Nurse Practitioner Family; Visit Provider Nurse Practitioner Family
DX: E55.9 Vitamin D deficiency, unspecified (principal); G47.31 Primary central sleep apnea; I10 Essential (primary) hypertension; L91.8 Other hypertrophic disorders of the skin; R73.02 Impaired glucose tolerance (oral)
CPT/HCPCS: 36415; 80053

== ENCOUNTER 2024-03-01 09:36 | Outpatient (CLI) | payer OTHER, SELFPAY ==
[2024-03-01 10:53] LABS: Alanine Aminotransferase 28 U/L (6-35); Aspartate Amino Transferase 34 U/L (14-36)
== END 2024-03-01 09:37 | disposition home or self-care (01) ==
LOC: ANHLAB 09:38
PROVIDERS: PCP Nurse Practitioner Family; Visit Provider Podiatrist Foot & Ankle Surgery
DX: B35.1 Tinea unguium (principal)
CPT/HCPCS: 36415; 84450; 84460

== ENCOUNTER 2024-05-14 11:25 | Outpatient (CLI) | payer OTHER, SELFPAY ==
--- NOTE | ~2024-05-14 | XR_ITS ---
XR abdomen/kub 1V Ordering provider: Michelle Montanez APRN History: . R19.7 - Diarrhea, unspecified . Comparison: None. FINDINGS: BOWEL: Nonobstructive bowel gas pattern. ORGANOMEGALY: None. SIGNIFICANT PATHOLOGIC CALCIFICATIONS: None. OTHER: No free air is seen under the diaphragm. Degenerative the spine. Bilateral sacroiliacs. IMPRESSION: NO ACUTE ABDOMINAL FINDINGS. Reviewed, dictated and finalized at location A. N AND [employer] INVESTIGATOR
== END 2024-05-14 11:26 | disposition home or self-care (01) ==
LOC: MICIMG 11:26
PROVIDERS: PCP Nurse Practitioner Family; Visit Provider Nurse Practitioner Family
DX: R19.7 Diarrhea, unspecified (principal); Z12.31 Encounter for screening mammogram for malignant neoplasm of breast
CPT/HCPCS: 74018

== ENCOUNTER 2024-05-24 08:48 | Outpatient (CLI) | payer OTHER, SELFPAY ==
[2024-05-24 10:16] LABS: Basophils Absolute Auto 0.1 K/mm3 (0.0-0.1); Basophils Percent Auto 0.6 % (0.2-1.2); Eosinophils Absolute Auto 0.2 K/mm3 (0-0.3); Eosinophils Percent Auto 2.9 % (0-4.4); Hematocrit 35.9 % (37.0-47.0); Immature Granulocyte Absolute 0.02 K/mm3 (0.00-0.031); Immature Granulocyte Percent A 0.3 % (0-0.5); Lymphocytes Absolute Auto 1.61 K/mm3 (0.9-3.2); Lymphocytes Percent Auto 20.9 % (18.3-44.2); Mean Corpuscular HGB Conc 33.4 g/dl (32-36); Mean Corpuscular Hemoglobin 30.4 pg (26-34); Mean Corpuscular Volume 90.9 fl (80-100); Mean Platelet Volume 9.8 fl (7.4-10.4); Monocytes Absolute Auto 0.7 K/mm3 (0.1-0.6); Monocytes Percent Auto 8.4 % (2.6-8.5); Neutrophils Absolute Auto 5.2 K/mm3 (1.3-6.7); Neutrophils Percent Auto 66.9 % (45.5-73.1); Platelet Count Result 274 k/mm3 (150-375); Red Blood Count 3.95 M/mm3 (4.2-5.4); Red Cell Distribution Width 12.5 % (11.5-14.5); White Blood Count 7.7 K/mm3 (4.5-10.0)
[2024-05-24 10:27] LABS: Alanine Aminotransferase 30 U/L (6-35); Albumin Level 4.2 g/dL (3.5-5.1); Alkaline Phosphatase 96 U/L (38-126); Anion Gap 5 mmol/L (4-12); Aspartate Amino Transferase 31 U/L (14-36); Bilirubin,Total 0.5 mg/dL (0.2-1.3); Blood Urea Nitrogen 20 mg/dL (7-17); Calcium 9.9 mg/dL (8.4-10.2); Carbon Dioxide 29 mmol/L (22-30); Chloride 102 mmol/L (98-107); Estimated Glomerular Filt Rate > 60; Glucose 92 mg/dL (65-110); Potassium 4.1 mmol/L (3.4-5.0); Sodium 136 mmol/L (137-145)
[2024-05-24 10:48] LABS: Alanine Aminotransferase 29 U/L (6-35); Aspartate Amino Transferase 31 U/L (14-36)
[2024-05-24 11:43] LABS: Toxigenic C. Diff NEGATIVE (NEGATIVE)
[2024-05-29 10:09] LABS: Norovirus RNA PCR, Stool NOT DETECTED
== END 2024-05-24 08:49 | disposition home or self-care (01) ==
PROVIDERS: PCP Nurse Practitioner Family; Referring Provider Podiatrist Foot & Ankle Surgery; Visit Provider Nurse Practitioner Family
DX: R10.9 Unspecified abdominal pain (principal); R19.7 Diarrhea, unspecified; B35.1 Tinea unguium
CPT/HCPCS: 36415; 80053; 84450; 84460; 85025; 87045; 87425; 87427; 87449; 87493; 87798; 89055

== ENCOUNTER 2024-05-28 14:52 | Outpatient (CLI) | payer OTHER, SELFPAY ==
--- NOTE | ~2024-05-28 | CT_ITS ---
CLINICAL INDICATION: Abdominal pain COMPARISON: None . TECHNIQUE: Multiple contiguous axial images of the abdomen and pelvis were performed following the ad ministration of with 100 mL Omnipaque-350 intravenous contrast The dose-length product (DLP) was 1041.25 mGy-cm. Automated exposure control and iterative reconstruction technique were employed. FINDINGS/OBSERVATIONS: Visualized lower thorax: The bilateral lung bases are clear. The heart is of normal size, without pericardial effusion. Small hiatal hernia is present. Liver: The liver enhances homogeneously and is not enlarged measuring 16 cm in longitudinal dimension. Gallbladder and biliary system: The gallbladder is distended, and contains multiple noncalcified and minimally calcified stones. No s urrounding inflammatory change is present. Pancreas: The pancreas enhances homogeneously without ductal dilatation. Spleen: Punctate calcifications identified within the splenic parenchyma, suggesting prior granulomatous dise ase. The remainder of the spleen otherwise enhances homogeneously and is not enlarged measuring 7.3 cm in longitudinal dimension. Kidneys: The bilateral kidneys enhance symmetrically without hydronephrosis or renal calculi. Adrenal glands: Unremarkable. Gastrointestinal tract: Mural thickening and multiple diverticulum are identified within the rectosigmoid colon with surround ing inflammatory change (prominence of the vasa recta) suggesting early/acute diverticulitis for whic h clinical correlation is needed. Appendix: The air-filled appendix is of normal caliber (axial series, images 96-119) Vasculature: Trace calcified atherosclerotic disease Lymph nodes: No pathologically enlarged or morphologically suspicious lymph nodes within the retroperitoneum or at the root of the mesentery. Pelvic structures: The bladder is distended, and otherwise unremarkable. The uterus is atrophic and otherwise unremarkable. Body wall and musculoskeletal: Small fat-containing umbilical hernia. Degenerative disease is identified within the lumbosacral spine with osteophyte formation, disc space narrowing, endplate changes and vacuum phenomena. No acute fractures or lytic/blastic lesions are id entified. IMPRESSION: Cholelithiasis without CT evidence to suggest cholecystitis. Findings suggesting rectosigmoid diverticulitis without a drainable fluid collection or gross perfora tion. Findings suggesting prior granulomatous disease. Reviewed, dictated and finalized at location A. [employer] IMPRESSION: Cholelithiasis without CT evidence to suggest cholecystitis. Findings suggesting rectosigmoid diverticulitis without a drainable fluid colle ction or gross perforation. Findings suggesting prior granulomatous disease.
== END 2024-05-28 14:53 | disposition home or self-care (01) ==
PROVIDERS: PCP Nurse Practitioner Family; Visit Provider Nurse Practitioner Family
DX: K80.20 Calculus of gallbladder without cholecystitis without obstruction (principal); K57.90 Diverticulosis of intestine, part unspecified, without perforation or abscess without bleeding
CPT/HCPCS: 74177; Q9967

== ENCOUNTER 2024-07-04 11:13 | Emergency (ER) | payer OTHER, SELFPAY ==
[2024-07-04 11:20] VITALS: BP 153/82; PULSE 71; RESP 16; TEMP 36.6; O2SAT 98
--- NOTE | 2024-07-04 11:59 | ED.ABDPAIN ---
HPI - Abdominal Pain General Chief Complaint: Nausea/Vomiting/Diarrhea Stated Complaint: Diarrhea/Abdominal Pain Source: patient and RN notes reviewed Mode of arrival: ambulatory Limitations: no limitations History of Present Illness HPI narrative: 63 y/o female with hx diverticulitis presented for c/o an episode of diarrhea and rectal pain today. Rectal pain described as cutting. States she has had diarrhea x2 months,but had been having more formed stool after taking unknown medication which she completed 2 weeks ago. Pt is scheduled for colonoscopy 09/04/24. Denies abdominal pain, n/v. Currently denies rectal pain. Per notes 05/28/24 CT shows diverticulitis. Increased seeds/nuts over the holiday. Related Data Home Medications ?Medication ?Instructions ?Recorded ?Confirmed ?Last Taken ?Type [place]'s wort 300 mg tablet 300 mg PO BID 06/30/21 02/07/24 Unknown History cholecalciferol (vitamin D3) 25 25 mcg PO DAILY 01/24/23 02/07/24 Unknown History mcg (1,000 unit) capsule glucosamine 750 av-qvieylohzld-snz tablet PO DAILY 01/24/23 02/07/24 Unknown History no1 625 mg-C 30 mg-alanna 1 mg tablet (Kppfqamylkf-Kcmtfsaenyp-BWM) fostamatinib 100 mg tablet 100 mg PO DAILY 05/14/24 Unknown History (Tavalisse) Allergies Allergy/AdvReac Type Severity Reaction Status Date / Time Influenza Virus Vaccines Allergy Unknown guillain Verified 07/04/24 11:58 barre Review of Systems Review of Systems: CONSTITUTIONAL: Denies body aches, fever, chills ENT: Denies rhinorrhea, congestion CARDIOVASCULAR: Denies chest pain, palpitations, or edema. RESPIRATORY: Denies cough or dyspnea. GASTROINTESTINAL: Endorses diarrhea. Denies abdominal pain, nausea, vomiting hematochezia, melena, hematemesis GENITOURINARY: Denies dysuria, hematuria, or CVA tenderness. SKIN: Denies rash, itching, or wounds. MUSCULOSKELETAL: Denies back pain, joint pain, or myalgia. NEUROLOGIC: Denies headache, numbness, tingling, or weakness. All systems reviewed & are unremarkable except as noted in HPI and below PMFSH Past Medical History Medical History History of colon polyps Diabetes Periorbital cellulitis Complex sleep apnea syndrome Allergic rhinitis History of Guillain-[place] syndrome Chronic knee pain Screening for osteoporosis Screening for breast cancer Vitamin D deficiency, unspecified Hematuria Obesity Anemia COLIN (obstructive sleep apnea) Benign essential hypertension Hand paresthesia Surgical History Surgical History History of bunionectomy of left great toe July 2021 History of bunionectomy History of hysterectomy S/P left rotator cuff repair Family History Family History Mother Family history of malignant neoplasm of breast in first degree relative COPD (chronic obstructive pulmonary disease) Father Lung cancer Throat cancer Social History Social History Smoking status: Never smoker Tobacco type: cigarettes Alcohol intake: never Substance use: never Substance use type: does not use Do You Feel Safe in your Home?: Yes Lack of Transportation: No Lack of Food: Never True Current Housing: I Have Housing Concerned About Future Housing: No Difficulty Paying Gas/Electric Bills: No Difficulty Paying for Meds: No Currently Unemployed: No Education: High School Diploma/GED Difficulty w/ Childcare or Family Care: No Living arrangements: with family Occupation/Education: occupation Gender identity (if verbalized by the patient): Female Sexual Orientation (if Verbalized by the Patient): Straight or Heterosexual Spiritual care concerns: No Agree to blood products: Yes Comments At time of signature, I have reviewed and agree with nursing past medical, surgical, social and family history unless otherwise noted. Please see nursing chart for further information. There is no relevant family history pertinent to the presenting complaint Exam Narrative: GENERAL: Well-appearing, and in no acute distress. EYES: EOMI. Conjunctivae normal. ENT: Mucous membranes pink and moist. CHEST: No respiratory distress. Clear to auscultation. HEART: Regular rate and rhythm. No murmur appreciated. Normal peripheral pulses. ABDOMEN: abd soft, nondistended, normal active bowel sounds. Nontender abdomen: No guarding, rebound tenderness, asymmetry EXTREMITIES: Normal range of motion. No edema. SKIN: Warm, dry, no rash. Capillary refill normal. Normal skin turgor. NEURO: No focal deficits. Alert and oriented x3. PSYCH: Normal affect. Course Course Emergency Course: Patient is aware of diagnosis, understands and agrees to treatment plan. Anticipatory guidance given. Patient agrees to follow-up as directed and is aware of reasons to seek care at the emergency department. Portions of this record may have been created with voice recognition software Level of Care: Express Care Visit Vital Signs Vital signs: Vital Signs Temperature 98 F 07/04/24 11:20 Pulse Rate 71 07/04/24 11:20 Respiratory Rate 16 07/04/24 11:20 Blood Pressure 153/82 H 07/04/24 11:20 Pulse Oximetry 98 07/04/24 11:20 Oxygen Delivery Room Air 07/04/24 11:20 Temperature 98 F 07/04/24 11:20 Pulse Rate 71 07/04/24 11:20 Respiratory Rate 16 07/04/24 11:20 Blood Pressure 153/82 H 07/04/24 11:20 Pulse Oximetry 98 07/04/24 11:20 Oxygen Delivery Room Air 07/04/24 11:20 MDM - Abdominal Pain MDM Narrative Medical decision making narrative: Discussed physical exam findings. Nontender abdomen, declined rectal exam. Refused ER at this time. Advised supportive measures and signs/symptoms to go to the ER. Pt is appropriate for outpt treatment and f/u. Differential Diagnosis Differential diagnosis: Likely abdominal pain, acute appendicitis, calculus of kidney, constipation, diverticulitis, gastroenteritis, pancreatitis, small bowel obstruction and other Discharge Plan Discharge Clinical Impression: Diarrhea Patient Disposition: Home, Self-Care Condition: Stable Instructions: Diverticulitis (ED), Diverticulitis Diet (ED) Additional Instructions: You were advised to transfer to the ER and you decline at this time. You were made aware of the risk of refusal including worsening of your condition and . Report to the ER immediately by calling 911 for any worsening symptoms. Stay hydrated. Take small sips of fluid containing electrolytes frequently. Clear liquids (broth, jello, tea, sprite, pedialyte) and [place] foods (bananas, rice, applesauce, toast, crackers) Avoid fatty, greasy, fried or spicy foods. Limit dairy until symptoms are improved. [id number] Imodium according to package directions for severe diarrhea Recommend probiotic such as align or lactobacillus to help with symptoms. (align or lactobacillus, Activia yogurt) go to the ER immediately for any worsening symptoms or concerns Follow up with primary care provider, call today to schedule an appointment Patient Language: Kazakh Prescriptions: No Action cholecalciferol (vitamin D3) 25 mcg (1,000 unit) capsule 25 mcg PO DAILY mekjigdm-bycyf-iqo4-C-alanna-bor [Gryivxfd-Dbvsm-GSZ(with boron)] 164-061-83-1 mg tablet PO DAILY fluticasone propionate [Flonase Allergy Relief] 50 mcg/actuation spray,suspension 2 spray intranasal DAILY Qty: 48 2RF Rx Instructions: administer into each nostril Tavalisse 100 mg tablet 100 mg PO DAILY vitamin I88-murux acid 1,000-400 mcg lozenge See Rx Instructions SUBLINGUAL .COMPLEX Qty: 30 0RF Rx Instructions: Dissolve one by sublingual route [place]'s wort 300 mg tablet 300 mg PO BID lisinopril-hydrochlorothiazide 10-12.5 mg tablet See Rx Instructions .ROUTE .COMPLEX Qty: 90 1RF Dose Instruction: Take 1 tablet by mouth once daily Rx Instructions: Take 1 tablet by mouth once daily meloxicam 7.5 mg tablet 7.5 mg PO DAILY Qty: 90 1RF polyethylene glycol 3350 [Miralax] 17 gram/dose powder 17 g PO DAILY Qty: 119 0RF Follow-up/Referrals: Asael Carranza MD [Primary Care Provider] - Time of Disposition: 12:24
== END 2024-07-04 12:26 | disposition home or self-care (01) ==
PROVIDERS: Emergency Provider Nurse Practitioner Family; PCP Family Medicine
DX: R19.7 Diarrhea, unspecified (principal); I10 Essential (primary) hypertension; E11.9 Type 2 diabetes mellitus without complications
CPT/HCPCS: 99211; G0463

== ENCOUNTER 2024-07-22 00:17 | Day surgery (SDC) | payer OTHER, SELFPAY ==
[2024-07-10 14:31] VITALS: BMI 35.5
[2024-07-22 07:18] VITALS: BP 145/85; PULSE 70; RESP 20; TEMP 35.8; O2SAT 99; BMI 34.4
[2024-07-22] MEDS: LACTATED RINGERS 1,000 ML 150 ML IV CONT (07:37)
--- NOTE | 2024-07-22 07:39 | P.PNAN_ITS ---
Anes - Initial Pre Proc Eval Procedure: Operation Date: 07/22/24 08:30 Proposed Procedures p Colonoscopy - Chano Ornelas MD Date/Time: 07/22/24 07:39 Surgeon: Chano Ornelas MD Pre Op Diagnosis: Personal hx of colon polyps Patient Data Age: 63 Gender: F Height: 1.6 m Weight: 88.2 kg Last Vital Signs Temp 35.8 C L 07/22/24 07:18 Pulse 70 07/22/24 07:18 Resp 20 07/22/24 07:18 BP 145/85 H 07/22/24 07:18 Pulse Ox 99 07/22/24 07:18 O2 Del Method Room Air 07/22/24 07:18 Allergies Allergy/AdvReac Type Severity Reaction Status Date / Time Influenza Virus Vaccines Allergy Unknown guillain Verified 07/22/24 07:23 barre Home Medications ?Medication ?Instructions ?Recorded ?Confirmed ?Type vitamin B12 1,000 mcg-folic acid See Rx Instructions sublingual 05/09/19 07/22/24 Rx 400 mcg sublingual lozenge .COMPLEX #30 ea [place]'s wort 300 mg tablet 300 mg PO BID 06/30/21 07/22/24 History cholecalciferol (vitamin D3) 25 25 mcg PO DAILY 01/24/23 07/22/24 History mcg (1,000 unit) capsule glucosamine 750 cn-eogzlgilnge-dui tablet PO DAILY 01/24/23 02/07/24 History no1 625 mg-C 30 mg-alanna 1 mg tablet (Gegwaswbesr-Xgugofsrcty-VVF) fluticasone propionate 50 2 spray intranasal DAILY #48 mL 02/07/24 07/22/24 Rx mcg/actuation nasal spray,suspension (Flonase Allergy Relief) lisinopril 10 See Rx Instructions .Route 04/15/24 07/22/24 Rx mg-hydrochlorothiazide 12.5 mg .COMPLEX #90 tabs tablet meloxicam 7.5 mg tablet 7.5 mg PO DAILY #90 tabs 04/15/24 07/22/24 Rx fostamatinib 100 mg tablet 100 mg PO DAILY 05/14/24 07/22/24 History (Tavalisse) polyethylene glycol 3350 17 17 g PO DAILY #119 grams 05/15/24 07/10/24 Rx gram/dose oral powder (Miralax) Patient hx anesthesia problems: none Family hx anesthesia problems: none Results Review: All pre-operative results and documents have been reviewed as part of the pre- operative evaluation. [facility] Past Medical History Medical History (Updated 07/22/24 @ 07:40 by Arben Dotson MD) History of colon polyps Periorbital cellulitis Complex sleep apnea syndrome Allergic rhinitis History of Guillain-[place] syndrome Chronic knee pain Screening for osteoporosis Screening for breast cancer Vitamin D deficiency, unspecified Hematuria Obesity Anemia COLIN (obstructive sleep apnea) Benign essential hypertension Hand paresthesia Surgical History Surgical History History of bunionectomy of left great toe July 2021 History of bunionectomy History of hysterectomy S/P left rotator cuff repair Family History Family History Mother Family history of malignant neoplasm of breast in first degree relative COPD (chronic obstructive pulmonary disease) Father Lung cancer Throat cancer Social History Social History Smoking status: Never smoker Tobacco type: cigarettes Alcohol intake: never Substance use: never Substance use type: does not use Do You Feel Safe in your Home?: Yes Lack of Transportation: No Lack of Food: Never True Current Housing: I Have Housing Concerned About Future Housing: No Difficulty Paying Gas/Electric Bills: No Difficulty Paying for Meds: No Currently Unemployed: No Education: High School Diploma/GED Difficulty w/ Childcare or Family Care: No Living arrangements: with family Occupation/Education: occupation Gender identity (if verbalized by the patient): Female Sexual Orientation (if Verbalized by the Patient): Straight or Heterosexual Spiritual care concerns: No Agree to blood products: Yes Anes - Eval Final PreProcedure Day of Procedure 07/22/24 07:39 Patient weight: obese Heart: regular rate and rhythm Lungs: clear to auscultation Airway: Mallampati scale class II Neurological: alert and oriented Last oral intake: >/= 8 hours ASA classification: III Emergent: no Anesthetic plan: proceed Anesthesia type and monitoring: general GIVS and standard monitoring Results Review: All pre-operative results and documents have been reviewed as part of the pre- operative evaluation. Informed Consent: The patient's anesthetic plan and its attendant risks and benefits were discussed with the patient/family/POA. Questions were solicited and answers provided to the satisfaction of the patient/family/POA.
--- NOTE | 2024-07-22 07:40 | SUR.PREOP ---
Patient had an order for an accu check but patient states not a diabetic and doesn't take any medications for diabetes. Addressed this issue with .
--- NOTE | 2024-07-22 08:02 | PM.IMHP ---
H&P: [facility] History of Present Illness Date/Time: 07/22/24 08:02 Chief Complaint: history of colon polyps -diarrhea Narrative: The patient has a history of colonic polyps, the last colonoscopy was about 7 years ago. in addition, patient has been experiencing intermittent diarrhea, which she attributes to emotional issues. She is currently taking loperamide with apparent improvement. There is no rectal bleeding or associated abdominal pain, no weight loss. Review of Systems Review of Systems: All systems reviewed & are unremarkable except as noted in HPI and below PMFSH Past Medical History Medical History (Updated 07/22/24 @ 07:40 by Arben Dotson MD) History of colon polyps Periorbital cellulitis Complex sleep apnea syndrome Allergic rhinitis History of Guillain-[place] syndrome Chronic knee pain Screening for osteoporosis Screening for breast cancer Vitamin D deficiency, unspecified Hematuria Obesity Anemia COLIN (obstructive sleep apnea) Benign essential hypertension Hand paresthesia Surgical History Surgical History History of bunionectomy of left great toe July 2021 History of bunionectomy History of hysterectomy S/P left rotator cuff repair Family History Family History Mother Family history of malignant neoplasm of breast in first degree relative COPD (chronic obstructive pulmonary disease) Father Lung cancer Throat cancer Social History Social History Smoking status: Never smoker Tobacco type: cigarettes Alcohol intake: never Substance use: never Substance use type: does not use Do You Feel Safe in your Home?: Yes Lack of Transportation: No Lack of Food: Never True Current Housing: I Have Housing Concerned About Future Housing: No Difficulty Paying Gas/Electric Bills: No Difficulty Paying for Meds: No Currently Unemployed: No Education: High School Diploma/GED Difficulty w/ Childcare or Family Care: No Living arrangements: with family Occupation/Education: occupation Gender identity (if verbalized by the patient): Female Sexual Orientation (if Verbalized by the Patient): Straight or Heterosexual Spiritual care concerns: No Agree to blood products: Yes Meds Home Medications and Allergies Home Medications ?Medication ?Instructions ?Recorded ?Confirmed ?Type vitamin B12 1,000 mcg-folic acid See Rx Instructions sublingual 05/09/19 07/22/24 Rx 400 mcg sublingual lozenge .COMPLEX #30 ea [place]'s wort 300 mg tablet 300 mg PO BID 06/30/21 07/22/24 History cholecalciferol (vitamin D3) 25 25 mcg PO DAILY 01/24/23 07/22/24 History mcg (1,000 unit) capsule glucosamine 750 jw-vhvifyowmpa-vtt tablet PO DAILY 01/24/23 02/07/24 History no1 625 mg-C 30 mg-alanna 1 mg tablet (Gjcpqrvqaze-Vrfnbczkdxj-GQL) fluticasone propionate 50 2 spray intranasal DAILY #48 mL 02/07/24 07/22/24 Rx mcg/actuation nasal spray,suspension (Flonase Allergy Relief) lisinopril 10 See Rx Instructions .Route 04/15/24 07/22/24 Rx mg-hydrochlorothiazide 12.5 mg .COMPLEX #90 tabs tablet meloxicam 7.5 mg tablet 7.5 mg PO DAILY #90 tabs 04/15/24 07/22/24 Rx fostamatinib 100 mg tablet 100 mg PO DAILY 05/14/24 07/22/24 History (Tavalisse) polyethylene glycol 3350 17 17 g PO DAILY #119 grams 05/15/24 07/10/24 Rx gram/dose oral powder (Miralax) Allergies Allergy/AdvReac Type Severity Reaction Status Date / Time Influenza Virus Vaccines Allergy Unknown guillain Verified 07/22/24 07:23 barre Vital Signs Vital Signs - 24 hr 07/22/24 07:18 Temperature 96.5 F L Pulse Rate 70 Respiratory Rate 20 Blood Pressure 145/85 H Pulse Oximetry 99 Oxygen Delivery Room Air Exam Const: General: cooperative and healthy appearing Resp: Effort & Inspection: normal respiratory effort and able to speak in complete sentences Auscultation: clear to auscultation bilaterally Cardio: Rate: regular rate Rhythm: regular rhythm GI: Inspection: normal to inspection GI Palp: No No hepatosplenomegaly present Auscultation: normal bowel sounds Rectal Exam: deferred Skin: General skin exam: normal color Psych: Appearance: grossly normal Mental Status: mental status grossly normal Assessment and Plan Assessment and plan (1) Screening for colon cancer: Code(s): Z12.11 - Encounter for screening for malignant neoplasm of colon Status: Acute Assessment and Plan: The patient is deemed a good candidate for the procedure. Consent signed. Will proceed. also perform mucosal biopsies to rule out microscopic colitis since the patient has intermittent diarrhea which is currently masked with loperamide.
[2024-07-22 09:01] VITALS: BP 115/72; PULSE 73; RESP 20; O2SAT 99
[2024-07-22 09:11] VITALS: BP 126/83; PULSE 66; RESP 20; O2SAT 97
[2024-07-22 09:21] VITALS: BP 140/87; PULSE 66; RESP 17; O2SAT 96
--- OUTSIDE RECORDS SUMMARY | 2024-07-29 00:38 | XMS_ITS ---
Author Organization Unknown Medications Medication Instructions Effective Dates (start - stop) Status - - Compl eted hydrochlorothiazide 12.5 MG / lisinopril 10 MG Oral Tablet - Complete d hydrochlorothiazide 12.5 MG / lisinopril 10 MG Oral Tablet - Complete d meloxicam 7.5 MG Oral Tablet [id number] 0:00:00Z - Completed amoxicillin 500 MG Oral Capsule 2023-09-08 7T00:00:00Z - Completed {21 (methylprednisolone 4 MG Oral Tablet) } Pack - Completed gabapentin 300 MG Oral Capsule 2023-08-23 T00:00:00Z - Completed hydrochlorothiazide 12.5 MG / lisinopril 10 MG Oral Tablet - Complete d gabapentin 300 MG Oral Capsule 2023-06-24 T00:00:00Z - Completed gabapentin 300 MG Oral Capsule 2023-10-25 T00:00:00Z - Completed gabapentin 300 MG Oral Capsule 2023-07-23 T00:00:00Z - Completed gabapentin 300 MG Oral Capsule 2023-04-22 T00:00:00Z - Completed meloxicam 7.5 MG Oral Tablet [id number] 0:00:00Z - Completed gabapentin 300 MG Oral Capsule 2023-09-24 T00:00:00Z - Completed hydrochlorothiazide 12.5 MG / lisinopril 10 MG Oral Tablet - Complete d gabapentin 300 MG Oral Capsule 2023-02-18 T00:00:00Z - Completed penicillin V potassium 500 M G Oral Tablet - Completed gabapentin 300 MG Oral Capsule 2023-11-23 T00:00:00Z - Completed gabapentin 300 MG Oral Capsule 2023-05-16 T00:00:00Z - Completed meloxicam 7.5 MG Oral Tablet [id number] 0:00:00Z - Completed gabapentin 300 MG Oral Capsule 2023-03-20 T00:00:00Z - Completed acetaminophen 325 MG / hydro codone bitartrate 5 MG Oral Tablet - Completed meloxicam 7.5 MG Oral Tablet [id number] 0:00:00Z - Completed Patient Care team information Name Category Status Period Participants - - Proposed period not known -
--- OUTSIDE RECORDS SUMMARY | 2024-07-29 00:39 | XMS_ITS | Referral Summary ---
Author Organization [facility] Address [address] [place] [address] Care Team Providers Care Rotary Drill Rig Operator Name Role Phone Kaleb Gutierrez MD Primary Care Provider Allergies No known active allergies Medications lisinopril-hydr oCHLOROthiazide (PRINZIDE,ZESTO RETIC) 20-12.5 mg per tabletIndicatio ns:hypertension Take 1 tablet by mouth daily Active gabapentin (NEURONTIN) 300 mg capsule Take 300 mg by mouth daily Active meloxicam (MOBIC) 15 mg tablet Take 15 mg by mouth daily Active oxyCODONE (ROXICODONE) 5 mg immediate release tabletIndicatio ns:Pain TAKE 1 TO 2 TABLETS EVERY 4 TO 6 HOURS NEEDED FOR PAIN 40 tablet 02/26/2019 Active Active Problems Problem Noted Date Diagnosed Date Right shoulder pain 02/10/2019 Overview (02/10/2019): Added automatically from request for surgery [id number] Traumatic complete tear of left rotator cuff 11/2018 Overview (02/10/2019): Added automatically from request for surgery [id number] Social History Tobacco Use Types Packs/Day Years Used Date Smoking Tobacco: Never Smokeless Tobacco: Never Alcohol Use Standard Drinks/Week Comments Not Currently 0 (1 standard drink = 0.6 oz pur e alcohol) has not for 12 years AUDIT-C Answer Date Recorded Frequency of Alcohol Consumption Never 02/24/2019 Average Number of Drinks Not on file 019 Frequency of Binge Drinking Not on file 02/06 Comments No Sex and Gender Information Value Date Recorded Sex Assigned at Not on file Legal 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 Gender Identity Not on file Sexual Orientation Not on file Last Filed Vital Signs Vital Sign Reading Time Taken Comments Blood Pressure 148/87 02/27/2019 11:25 AM CDT Pulse 65 02/27/2019 11:35 AM CDT Temperature 36.3 ??C (97.3 ??F) 02/27/2019 10:12 AM C DT Respiratory Rate 16 02/27/2019 11:35 AM CDT Oxygen Saturation 95% 02/27/2019 11:35 AM CDT Inhaled Oxygen Concentration - - Weight 95 kg (209 lb 8 oz) 02/27/2019 6:46 AM CD T Height 160 cm (5' 3 ) 02/27/2019 6:46 AM CDT Body Mass Index 37.11 02/27/2019 6:46 AM CDT Plan of Treatment Not on file Medical Devices Implanted Type Area Spindle Sander Device Identifier Shelf Expiration Date Model / Serial / Lot [employer] Ar-1927bct Corkscrew Suturetape 5.5mm 14.7mm Bioabsorbable Full Thread 1.3mm - [id number] Implanted:Qty: 1 on 02/27/2019 by Darrin Bryant MD at [facility] [place] Left: Shoulder [employer] 11/05/2020 AR-1927BCT / / [id number] [employer] Ar-1927bct Corkscrew Suturetape 5.5mm 14.7mm Bioabsorbable Full Thread 1.3mm - [id number] Implanted:Qty: 1 on 02/27/2019 by Darrin Bryant MD at [facility] [place] Left: Shoulder [employer] 11/05/2020 AR-1927BCT / / [id number] [employer] Ar-1927bct Corkscrew Suturetape 5.5mm 14.7mm Bioabsorbable Full Thread 1.3mm - [id number] Implanted:Qty: 1 on 02/27/2019 by Darrin Bryant MD at [facility] [place] Left: Shoulder [employer] 11/05/2020 AR-1927BCT / / [id number] [employer] Ar-2324 Bcm Swivelock 4.75mm 24.5mm Self Punch Vent Shoulder [place] Suture - [id number] Implanted:Qty: 1 on 02/27/2019 by Darrin Bryant MD at [facility] Left: Shoulder [employer] 08/08/2020 AR-2324BCM / / [id number] [employer] Ar-2324 Bcm Swivelock 4.75mm 24.5mm Self Punch Vent Shoulder [place] Suture - [id number] Implanted:Qty: 1 on 02/27/2019 by Darrin Bryant MD at [facility] [place] Left: Shoulder [employer] 11/05/2020 AR-2324BCM / / [id number] Insurance [id number] [place] [address] [facility] Care Teams Rotary Drill Rig Operator Relationship Specialty Start Date End Date Kaleb Gutierrez MD [address] [facility] [address] [place] [address] PCP - General 02/25/16
--- OUTSIDE RECORDS SUMMARY | 2024-07-29 00:39 | XMS_ITS | Encounter Summary ---
Author Organization [facility] Address [address] [place] [address] Phone Care Team Providers Care Ceramic Artist Name Role Phone Kaleb Gutierrez MD Primary Care Provider Encounter Details Date Type Department Care Team (Late st Contact Info) Description 08/08/2019 Orders Only [facility] Orthopaedic Surgery [address] [facility] [address]th [place] [address] [place] [address] Darrin Bryant MD [address] 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
--- OUTSIDE RECORDS SUMMARY | 2024-07-29 00:39 | XMS_ITS | Encounter Summary ---
Author Organization [facility] Address [address] [place] [address] Care Team Providers Care Government Instructor Name Role Phone Vladimir Aquino DPM Unavailable [phone] Kaleb Gutierrez MD Primary Care Provider Encounter Details Date Type Department Care Team (Late st Contact Info) Description 05/21/2020 9:00 AM VENEER MANUFACTURER Rapid Evaluation [place] [facility] Mobile Testing [facility] [place] [address] Social History Tobacco Use Types Packs/Day Years Used Date Smoking Tobacco: Never Assessed Comments No Sex and Gender Information Value Date Recorded Sex Assigned at Not on file Legal Sex Female 10:18 AM CDT Gender Identity Not on file Sexual Orientation Not on file documented as of this encounter Plan of Treatment Not on file documented as of this encounter Visit Diagnoses Not on filedocumented in this encounter Care Teams Government Instructor Relationship Specialty Start Date End Date Kaleb Gutierrez MD [address] [place] [address] PCP - General Family Medicine 02/21/16 Vladimir Aquino DPM Podiatry 02/21/16 documented as of this encounter
--- OUTSIDE RECORDS SUMMARY | 2024-07-29 00:39 | XMS_ITS | Clinical Summary ---
Author Organization [facility] Address [address] [place] [address] Care Team Providers Care Multigraph Operator Name Role Phone Vladimir Aquino Elissa DPM Unavailable [phone] Kaleb Gutierrez MD Primary Care Provider Allergies No known active allergies Medications lisinopril-hydroC HLOROthiazide (PRINZIDE, ZESTORETIC) 10-12.5 MG Tablet 12/04/2015 A ctive hydroCHLOROthiazi de 25 MG Tablet Take 25 mg by mouth daily. Active Multiple Vitamins-Minerals (MULTIVITAMIN PO) Take by mouth. Active loratadine (CLARITIN REDITABS) 10 MG TABLET DISPERSIBLE Take 10 mg by mouth daily. Active Cholecalciferol (VITAMIN D3) 5000 UNITS Capsule Take by mouth. Active Misc Natural Products (GLUCOSAMINE CHOND COMPLEX/MSM) Tablet Take by mouth. Active [place] Wort 300 MG Capsule Take by mouth. Active Magnesium 250 MG Tablet Take by mouth. Active Active Problems Problem Noted Date Diagnosed Date Metatarsalgia of right foot 05/04/2016 Joint contracture of foot 02/21/2016 Pain in right foot 02/21/2016 Hallux valgus 02/21/2016 Hammer toe of right foot 02/21/2016 Family History Medical History Relation Name Comments Hypertension Brother Cancer Father Lung/Throat Chronic Obstructive Pulmonary Disease Mother Diabetes Mother Relation Name Status Comments Brother Father Mother Social History Tobacco Use Types Packs/Day Years Used Date Smoking Tobacco: Never Tobacco Cessation:Counseling Given: Yes Alcohol Use Standard Drinks/Week Comments No 0 (1 standard drink = 0.6 oz pur e alcohol) Comments No Sex and Gender Information Value Date Recorded Sex Assigned at Not on file Legal Sex Female 10:18 AM CDT Gender Identity Not on file Sexual Orientation Not on file Last Filed Vital Signs Vital Sign Reading Time Taken Comments Blood Pressure 126/82 05/04/2016 2:07 PM CDT Pulse 72 05/04/2016 2:07 PM CDT Temperature 36.3 ??C (97.4 ??F) 05/04/2016 2:07 PM CD T Respiratory Rate 20 05/04/2016 2:07 PM CDT Oxygen Saturation 96% 05/04/2016 2:07 PM CDT Inhaled Oxygen Concentration - - Weight 98 kg (216 lb) 05/04/2016 2:07 PM CDT Height 160 cm (5' 3 ) 05/04/2016 2:07 PM CDT Body Mass Index 38.26 05/04/2016 2:07 PM CDT Plan of Treatment Health Maintenance Due Date Last Done Comments Hepatitis C Virus (HCV) Screening 1960 TdaP Immunization 1960 Colonoscopy 2005 Colorectal Cancer Screening 2005 Cologuard 2010 Immunochemical Fecal Occult Blood 2010 Mammogram 2010 Pneumococcal Immunization (5 0+ years) (1 of 1 - PCV) 2010 Zoster Immunization (1 of 2) 2010 Influenza Immunization (#1) 2024 SARS-COV-2 Immunization ( - 2023-25 season) 2024 Respiratory Syncytial Virus (RSV) Immunization (Adult) (1 - 1-dose 75+ series) 12/18/2035 Hepatitis B Immunization Aged Out No longer eligible based on patient's age to complete this topic Meningococcal Immunization (ACWY) Aged Out No longer eligible based on patient's age to complete this topic Pneumococcal Immunization Combined Aged Out No longer eligible based on patient's age to complete this topic Rotavirus Immunization Aged Out No lo nger eligible based on patient's age to complete this topic Insurance [employer] [facility] OAP Care Teams Multigraph Operator Relationship Specialty Start Date End Date Kaleb Gutierrez MD [address] [facility] [address] [place] [address] PCP - General Family Medicine 02/21/16 Vladimir Aquino DPM Podiatry 02/21/16
--- OUTSIDE RECORDS SUMMARY | 2024-07-29 00:39 | XMS_ITS | Encounter Summary ---
Author Organization [facility] Address [address] [place] [address] Phone Care Team Providers Care Collection Specialist Name Role Phone Kaleb Gutierrez MD Primary Care Provider Reason for Visit * Reason Comments Follow-up Encounter Details Date Type Department Care Team (Late st Contact Info) Description 05/27/2019 9:45 AM BONE PLANT SUPERVISOR Office Visit [facility] Orthopaedic Surgery [address] [facility] 2nd Floor [address] [place] [id number] Darrin Bryant MD [address] [facility] [address] [place] [address] Traumatic complete tear of left rotator cuff, initial encounter (Primary Dx); Follow-up examination following surgery Social History Tobacco Use Types Packs/Day Years [...] on file Legal Sex Female 4:11 AM BONE PLANT SUPERVISOR Gender Identity Not on file Sexual Orientation Not on file documented as of this encounter Progress Notes * Darrin Bryant MD - 05/27/2019 9:45 AM CST RETURN PATIENT VISIT INTERIM HISTORY Nancy Chavis returns now almost 3 months out from a left was rotator cuff repair with biceps tenotomy. She states she had 6 weeks in a sling followed by 6 weeks of roney therapy that she has been doing at home. She denies any pain currently. Did not have her initial postop follow-up in early April. She states she is still unable to actively raise her arm above her shoulder line. 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 She feels she would benefit from a structured therapy program PHYSICAL EXAMINATION In no acute distress Hearing intact to spoken word Breathing non-labored Atraumatic, normocephalic Focused examination left upper extremity shows her to have active forward flexion to about 90 that is active, passively at least to 120. Active external rotation to 0, passive for 10 rotation to 30-40 degrees. l portal site incisions are clean dry and intact REVIEW OF X-RAYS/STUDIES None obtained IMPRESSION/DIAGNOSIS 58-year-old female who is now 3 months out from a left arthroscopic rotator cuff repair and biceps tenotomy. She is doing well. We discussed return to work which she can perhaps due in June before , to avoid missing any further time off work. We will give her a script physical therapy TREATMENT/PLAN Physical therapy, graduated return to work FOLLOW UP vijaya Nice MD PGY-3, Department of Orthopaedics [facility] Department of Orthopaedic Surgery ATTENDING ADDENDUM The patient was seen and examined today with the resident/fellow. I was present for the History, Physical Exam, Case Discussion and Plan. I agree with the Assessment and Plan as dictated in the full clinic note. Darrin Bryant MD, MSc Filling Technician of Orthopedic Surgery Shoulder and Elbow Service [facility] Orthopedics [facility] Dr. Darrin Bryant dictating using Fluency Direct. Machine Tool Operator variances may occur. PLANT SUPERVISOR documented in this encounter Plan of Treatment Not on file documented as of this encounter Visit Diagnoses Diagnosis Traumatic complete tear of left rotator cuff, initial encounter- Primary Follow-up examination following surgery documented in this encounter Care Teams Collection Specialist Relationship Specialty Start Date End Date Kaleb Gutierrez MD [address] [place] [address] PCP - General 02/25/16 documented as of this encounter
--- OUTSIDE RECORDS SUMMARY | 2024-07-29 00:39 | XMS_ITS | Clinical Summary ---
Author Organization [facility] Address [address] [place] [address] Care Team Providers Care Ash Handler Name Role Phone Kaleb Gutierrez MD Primary [...] (02/10/2019): Added automatically from request for surgery [id number] Traumatic complete tear of left rotator cuff 11/2018 Overview (02/10/2019): Added automatically from request for surgery [id number] Surgical History Surgery Date Site/Laterality Comments SHOULDER ARTHROSCOPY 07/09/2006 - 07/08/2007 Right rotator cuff repair FOOT SURGERY 07/09/2016 - 07/08/2017 Right HYSTERECTOMY 07/09/2012 - 07/08/2013 partial Medical History Medical History Date Comments Hypertension takes lisinopril , HCTZ 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 Gender Identity Not on file Sexual Orientation Not on file Obstetrics History Last Filed Vital Signs Vital Sign Reading [...] on file Medical Devices Implanted Type Area Protection Consultant Device Identifier Shelf Expiration Date Model / Serial / Lot [employer] Ar-1927bct Corkscrew Suturetape 5.5mm 14.7mm Bioabsorbable Full Thread 1.3mm - [id number] Implanted:Qty: 1 on 02/27/2019 by Darrin Bryant MD at [facility] [place] Left: Shoulder [employer] 11/05/2020 AR-1927BCT / / [id number] [employer] Ar-1927bct Corkscrew Suturetape 5.5mm 14.7mm Bioabsorbable Full Thread 1.3mm - [id number] Implanted:Qty: 1 on 02/27/2019 by Darrin Bryant MD at [facility] [place] Left: Shoulder [employer] 11/05/2020 AR-1927BCT / / [id number] [employer] Ar-1927bct Corkscrew Suturetape 5.5mm 14.7mm Bioabsorbable Full Thread 1.3mm - [id number] Implanted:Qty: 1 on 02/27/2019 by Darrin Bryant MD at [facility] [place] Left: Shoulder [employer] 11/05/2020 AR-1927BCT / / [id number] [employer] Ar-2324 Bcm Swivelock 4.75mm 24.5mm Self Punch Vent Shoulder [place] Suture - [id number] Implanted:Qty: 1 on 02/27/2019 by Darrin Bryant MD at [facility] [place] Left: Shoulder [employer] 08/08/2020 AR-2324BCM / / [id number] [employer] Ar-2324 Bcm Swivelock 4.75mm 24.5mm Self Punch Vent Shoulder [place] Suture - [id number] Implanted:Qty: 1 on 02/27/2019 by Darrin Bryant MD at [facility] [place] Left: Shoulder [employer] 11/05/2020 AR-2324BCM / / [id number] Insurance [employer] [facility] [employer] [facility] Care Teams Ash Handler Relationship Specialty Start Date End Date Kaleb Gutierrez MD [address] [facility] [address] [place], [place] [id number] PCP - General 02/25/16
--- OUTSIDE RECORDS SUMMARY | 2024-07-29 00:39 | XMS_ITS | Encounter Summary ---
Author Organization [facility] Address [address] [place] [address] Care Team Providers Care Auto Body Technician Name Role Phone Vladimir Aquino DPM Unavailable [phone] Kaleb Gutierrez MD Primary Care Provider Encounter Details Date Type Department Care Team (Late st Contact Info) Description 05/21/2020 Lab Requisition [facility] Mobile Testing [facility] [address] [place] [address] [place] [address] [place] [address] Social History Tobacco Use Types Packs/Day Years Used Date Smoking Tobacco: Never Assessed Comments No Sex and Gender Information Value Date Recorded Sex Assigned at Not on file Legal Sex Female 10:18 AM CDT Gender Identity Not on file Sexual Orientation Not on file documented as of this encounter Plan of Treatment Not on file documented as of this encounter Procedures Procedure Name Priority Date/Time Associated Diagnosis Comments SARS-COV-2 PCR [facility] ONLY Routine 05/21/2020 8:00 PM CLIENT ADMINISTRATOR documented in this encounter Visit Diagnoses Not on filedocumented in this encounter Care Teams Auto Body Technician Relationship Specialty Start Date End Date Kaleb Gutierrez MD [address] [place] [address] PCP - General Family Medicine 02/21/16 Vladimir Aquino DPM Podiatry 02/21/16 documented as of this encounter
--- OUTSIDE RECORDS SUMMARY | 2024-07-29 00:39 | XMS_ITS | Encounter Summary ---
Author Organization [facility] Address [address] [place] [address] Phone Care Team Providers Care Agricultural Technical Officer Name Role Phone Kaleb Gutierrez MD Primary Care Provider Reason for Visit * Reason Comments Post-op Encounter Details Date Type Department Care Team (Late st Contact Info) Description 03/11/2019 1:15 PM CDT Office Visit [facility] Orthopaedic Surgery [address] [facility] 2nd [address] [place] [address] Darrin Bryant MD [address] [facility] [address] [place] [address] Traumatic complete tear of left [...] on file Legal Sex Female 4:11 AM MANAGED SERVICES CONSULTANT Gender Identity Not on file Sexual Orientation Not on file documented as of this encounter Progress Notes * Darrin Bryant MD - 03/11/2019 1:15 PM CDT POST OP VISIT INTERIM HISTORY Date of Surgery: 03/30/19 Procedure: L ARCR, biceps tenotomy Nancy Chavis returns for routine postoperative follow-up after surgery. Pain has been well-controlled. No issues so far, compliant with splint wear. PHYSICAL EXAMINATION No acute distress, alert and oriented X 3. Incision healing is noted with no sign of infection. Deltoid Fires well. There is full symmetric range of motion of the elbow. Distal motor and sensory function is normal. REVIEW OF X-RAYS/STUDIES No new imaging was obtained today IMPRESSION/DIAGNOSIS Doing well now 2 weeks after Rotator cuff repair TREATMENT/PLAN We will continue with routine postoperative rehabilitation. Maintain sling immobilization. We reviewed precautions and they voiced understanding. All questions were answered today. FOLLOW UP 4 weeks ATTENDING ADDENDUM The patient was seen and examined today with the resident/fellow. I was present for the History, Physical Exam, Case Discussion and Plan. I agree with the Assessment and Plan as dictated in the full clinic note. Darrin Bryant MD, MSc Oil Furnace Installer of Orthopedic Surgery Shoulder and Elbow Service [facility] Orthopedics [facility] Dr. Darrin Bryant dictating using Fluency Direct. Lab Clerk variances may occur. documented in this encounter Plan of Treatment Not on file documented as of this encounter Visit Diagnoses Diagnosis Traumatic complete tear of left rotator cuff, initial encounter- Primary Follow-up examination following surgery documented in this encounter Care Teams Agricultural Technical Officer Relationship Specialty Start Date End Date Kaleb Gutierrez MD [address] [facility] [address] [place] [address] PCP - General 02/25/16 documented as of this encounter
--- OUTSIDE RECORDS SUMMARY | 2024-07-29 00:39 | XMS_ITS | Encounter Summary ---
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
--- OUTSIDE RECORDS SUMMARY | 2024-07-29 00:40 | XMS_ITS | Encounter Summary ---
Author Organization [facility] Healthcare Address [address] [place] [address] Care Team Providers Care Casting Agent Name Role Phone Kaleb Gutierrez MD Primary Care Provider Encounter Details Date Type Department Care Team (Latest Contact Info) Description 02/27/2019 6:35 AM CDT - 02/27/2019 11:54 AM CDT Hospital Encounter [facility] [address] [place] [id number] Darrin Bryant MD [address] [facility] [address] [place], [place] [id number] Discharge Disposition: Discharge to home or self care Social History Tobacco Use Types Packs/Day Years [...] on file 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 Gender Identity Not on file Sexual Orientation Not on file documented as of this encounter Last Filed Vital Signs Vital Sign Reading [...] Mass Index 37.11 02/27/2019 6:46 AM CDT documented in this encounter Discharge Diagnoses Diagnosis Strain of tendon of left rotator cuff - STRAIN OF MUSCLE(S) AND TENDON(S) OF THE ROTATOR CUFF OF LEFT SHOULDER, INITIAL ENCOUNTER Fall - UNSPECIFIED FALL, INITIAL ENCOUNTER Unspecified fall Engages in activity - ACTIVITY, UNSPECIFIED Unspecified place or not applicable - UNSPECIFIED PLACE OR NOT APPLICABLE External cause status - UNSPECIFIED EXTERNAL CAUSE STATUS Essential (primary) hypertension - ESSENTIAL (PRIMARY) HYPERTENSION Unspecified essential hypertension documented in this encounter Discharge Instructions * Discharge Instructions* Noel Flores MD - 02/27/2019 10:13 AM CDT [facility] Department of Orthopaedic Surgery Darrin Bryant MD, MSc. Office ([place]) [address] [place] [address] [place] [id number] Shoulder Surgery (Outpatient) Postoperative Instructions Medications ??? Take 1-2 tablets of oxycodone every 4-6 hours as needed for pain. ??? Try to taper the use of your narcotic pills as soon as you feel comfortable. You may take ExtraStrength Tylenol or Tylenol only in place of the pain pills. Do not take additional Tylenol if you are taking Percocet, [place], or Vicodin. ??? You have been given a prescription for a stool softener, Colace. This medication is routinely used as pain medicines can be very constipating. Please take as directed unless you experience loose stools or diarrhea. * Medication Other: none Diet ??? Resume a regular diet as soon as possible. It is advisable to start with clear liquids until nausea is gone. Sling Use the sling until your next office visit. Activity ??? Increase your general activity level as the effects of the anesthetic medications have worn offand your strength improves. ??? Remain in your shoulder sling or brace as instructed above. ??? Remove the sling 3-4 times per day to allow gentle elbow motion as tolerated beginning the day after surgery. ??? Place a pillow behind the elbow when resting either reclined or flat, this generally helps withshoulder pain. ? This applies to your shoulder. Do not actively (on your own) lift your operative arm away from the side of the body or reach behind your back until cleared by your physician. This is vitally important to protect your surgical repair. Dressing Care ??? Remove the shoulder dressing on post operative day 2 for all arthroscopic surgeries. If there are white strips over your incisions, do not removed these. If you had a pain catheter placed in yourneck prior to surgery, remove both the shoulder dressing and the catheter on post operative day #3. ??? Remove the shoulder dressing on postoperative day#5 only if your surgery required an open incision, this includes biceps tendon repairs. ??? Do not remove the clear plastic dressing until follow-up. You may shower over this water-proof dressing. ??? You may begin to shower upon dressing removal and quickly pat the wounds dry. Leave the incisions open to air. Simply allow the water to wash over the site and then pat dry. Do not rub the incisions. Make sure your axilla (armpit) is completely dry after showering. ??? Slight wound drainage is common. If noted, please cover with small bandages (Band-Aids) until the drainage stops. ??? Bruising of the shoulder and the upper arm are common after surgery, even arthroscopic surgery.This can be significant. Do not worry, this is normal. ??? Ice is very important after shoulder surgery and should be used continuously over the dressing for the first 3 days. Following dressing removal, use the ice 3 times per day for 45 minutes, especially before nighttime. You may use either ice packs, icing systems or a large frozen bag of vegetables that can be broken up and molded to the shoulder and reused. Follow Up ??? Generally, a follow up appointment has been made for you at the time of surgery. You can call the scheduling center to confirm your appointment . Notify our office if you have any of the following: * Fever over 101.5 degrees. * Excessive blood on your dressing. * Numbness or tingling in your arm or hand that was not present before surgery and has lasted more than 24 hours after the regional block has worn off. * Drainage from any incision that last longer than 5 days following surgery. documented in this encounter Medications at Time of Discharge gabapentin (NEURONTIN) 300 mg capsule Take 300 mg by mouth daily lisinopril-hydroC HLOROthiazide (PRINZIDE,ZESTORE TIC) 20-12.5 mg per tabletIndications :hypertension Take 1 tablet by mouth daily meloxicam (MOBIC) 15 mg tablet Take 15 mg by mouth daily oxyCODONE (ROXICODONE) 5 mg immediate release tabletIndications :Pain TAKE 1 TO 2 TABLETS EVERY 4 TO 6 HOURS NEEDED FOR PAIN 40 tablet 02/26/2019 documented as of this encounter Discharge Disposition Disposition Code Departure Means Destination Discharge to home or self care documented in this encounter H&P Notes * Noel Flores MD - 02/27/2019 6:56 AM CDT I have reviewed the H&P, examined the patient, and endorse the findings as written. Plan of Care : Based on the above findings, I consider Nancy Chavis to be an acceptable risk for : Procedure(s): LEFT SHOULDER ARTHROSCOPIC ROTATOR CUFF REPAIR, POSSIBLE BICEPS TENOTOMY (WHEEL IN/OUT: 2 HOURS) LEFT Source Note - Darrin Bryant MD - 02/10/2019 10:00 AM CDT NEW PATIENT VISIT CHIEF COMPLAINT Left shoulder injury HISTORY OF PRESENT ILLNESS Nancy Chavis is a pleasant 58-year-old woman with a chief complaint of left shoulder pain and dysfunction the became worse after a fall on January 03. She states that prior to the fall she was having some mild difficulty with the shoulder had been seeking out some treatment with a chiropractor but that she was able to function generally very well with her shoulder. She has a history of a right shoulder rotator cuff tear and repair done many years ago. Since her fall involving her left shoulder at the end of December she states she has been much more limited with her ability to use the arm. She has had significant pain and weakness that she has identified since the fall. This has not improved sinceher fall. She rates pain as moderate in severity. PAST MEDICAL HISTORY She has no past medical history on file. PAST SURGICAL HISTORY She has no past surgical history on file. INITIAL REVIEW OF MEDICATIONS She currently has no medications in their medication list. DRUG ALLERGIES She has no allergies on file. SOCIAL HISTORY She FAMILY HISTORY Her family history is not on file. REVIEW OF SYSTEMS Review of Systems Is positive for congestion, joint swelling, falls but otherwise is negative. PHYSICAL EXAMINATION She is 5 ft 3 in tall and weighs 200 lb. Focused examination of the shoulder shows her deltoid fires well. Axillary nerve sensation is intact. Distal motor and sensory function is intact. She has weakness but approximately 4/5 strength with external rotation at the side. Active elevation is to approximately 120?? today but is limited by pain. Biceps signs are equivocal. She has pain with impingement testing. REVIEW OF X-RAYS/STUDIES X-rays that were obtained at an outside facility demonstrate aligned glenohumeral joint with minimal arthrosis. She has well-maintained joint space. No fractures are identified. MRI that was obtained at an outside facility was also reviewed and demonstrates massive full-thickness rotator cuff tear involving supraspinatus and infraspinatus. There is also significant muscle atrophy involving infraspinatus and supraspinatus. The MRI is of marginal quality but these features are noted upon my review today. IMPRESSION/DIAGNOSIS Left shoulder traumatic, likely acute on chronic full-thickness rotator cuff tear TREATMENT PLAN We had a discussion today regarding acute traumatic rotator cuff tears and the fact that she may have had some rotator cuff pathology present prior to her injury but that the injury certainly has exacerbated her worsened her symptoms. We discussed the potential risks and benefits of both nonoperative as well as operative intervention and I have recommended proceeding with operative intervention to attempt repair of the rotator cuff for least repair that which is repairable. We discussed risks and benefits of surgery as well as the likely postoperative rehabilitation protocol and she would like to proceed at the next available opportunity. All questions were answered today. FOLLOW-UP After surgery Darrin Bryant MD, MSc Procurement Specialist of Orthopedic Surgery Shoulder and Elbow Service [facility] Orthopedics [facility] Dr. Darrin Bryant dictating using Fluency Direct. Marketing Teacher variances may occur. documented in this encounter Miscellaneous Notes * Perioperative Nursing Note - Pao Denton RN - 02/27/2019 11:54 AM CDT Pt and family verbalized understanding of D/C instructions. All questions answered. Pt stated pain 0/10 and denies nausea for D/C. No changes since previous assessment. To prepare for D/C. Pt's spouse with pt and will care for pt for 24 hours post surgery. Infublock pain pump instructions given SOFIA Real. No further questions verbalized. IV catheter dc'd with tip intact without redness, drainage or bleeding.For 24 hrs. After surgery and while on narcotics; no driving, drinking alcohol, operating power tools or hazardous machinery or signing legal documents. Carlos hose x 24-48 hrs. To prevent blood clotsRemain in T-scope brace as direc carlos.Patient stable & ready for discharge. Ice pack provided for post-op use. Pt transported to car via wheelchair for discharge. * Perioperative Nursing Note - Pao Denton RN - 02/27/2019 10:12 AM CDT Pt in bed in lowest position locked with both side rails up, nonslip socks applied, curtain open and patient near nurses station. Pt will not be left behind curtain alone. Pt assisted in all cares inrecovery. Dionte score based on pre-op condition. * Op Note - Noel Flores MD - 02/27/2019 8:38 AM CDT Operative Report SURGEON: Darrin Bryant MD SURGICAL TEAM: Surgeon(s) and Role: * Darrin Bryant MD - Primary * Noel Flores MD - Fellow DATE OF SURGERY : 02/27/2019 PREOPERATIVE DIAGNOSIS: L massive rotator cuff tear POSTOPERATIVE DIAGNOSIS: SAME PROCEDURE: LEFT SHOULDER ARTHROSCOPIC ROTATOR CUFF REPAIR, BICEPS TENOTOMY (L) ANESTHESIA: Choice OPERATIVE DETAILS PROCEDURE: The patient presented and identified themselves in the preoperative holding area. They identified the left shoulder as the operative site and the operative shoulder was marked in standard fashion. After placement of a scalene block and catheter, the patient was taken to the operating room where supplemental general endotracheal anesthesia was placed. Pneumatic compression devices were placed on the lower extremities and then the patient was placed into the beach chair position. 20 cc of 0.25% Marcaine containing epinephrine were then placed in the subacromial space and then the left upper extremity was prepped and draped in the usual sterile fashion. All bony landmarks were outlined carefully as well as portal locations. The arthroscope was then placed initially in the posterior portal. After entrance into the glenohumeral joint, excellent visualization was obtained and an anterior portal was quickly established. A full radius resector was inserted here and then the rotator interval was debrided to appearance of the CA ligament, removing both the superior glenohumeral ligament as well as coracohumeral ligament medially. The flayed edges of the glenoid labrum were then debrided both anteriorly and posteriorly. A biceps tenotomy performed and debrided back to a stable base. The glenoid had diffuse Grade 1/2 changes and focal area of Grade 2 changes on glenoid around 25% of heard. The rotator cuff tear was then visualized from the intraarticular perspective and the location noted. The scope was then withdrawn, inferior traction was placed on the arm, and then the scope was placed in the subacromial space. Medial and lateral sweeping was performed to remove adhesions and then an anterolateral portal was established on the anterior edge of the rotator cuff tear. Excellent subacromial visualization was obtained in this fashion. A full radius resector was inserted and a comprehensive subacromial bursectomy was performed. No acromioplasty needed. A smooth undersurface was obtained. The aurora was then used to decorticate the greater tuberosity at the location of the rotator cuff tear, obtaining a bleeding base of bone for healing. A grasper device was then inserted from laterally and the size of the tear as well as the reduction capabilities assessed by grasping the cuff and pulling laterally. The tear included the entire supraspinatus as well as the infraspinatous. There was some posterior rotator cuff still on the tuberosity. We then planned for an executed a double row equivalent repair. We placed three double loaded medial anchors and the sutures passed in horizontal mattress fashion from anterior to posterior. They were then tied from posterior to anteriorwith excellent reduction of the cuff. One limb from each suture pair was then taken laterally out through a swivel lock. This was repeated twice with good compression over the lateral cuff. The entire construct was then visualized from the lateral portal to verify appropriate suture location as well as reduction of the cuff and fixation and stability. The arm was released from its ward and brought through internal and external rotation to verify the stability of the repair. At this point, the instruments were withdrawn and the portal sites were closed in a simple fashion with sutures. A bulky dressing was applied, anesthesia reversed, and patient was taken to recovery, having tolerated the procedure well and having sustained no intraoperative complications. Estimated Blood Loss: No blood loss documented. Complications: None Condition on Discharge from the operating room was stable Noel Flores MD Date: 02/27/2019 Time: 10:36 AM ATTENDING ATTESTATION Mary, Dr. Darrin Bryant, am the Attending Surgeon of record for this procedure. I was present and scrubbed for all critical portions of the case including arthroscopic rotator cuff repair, biceps tenotomy. I was immediately available for non-critical portions of the case including superficial closure. IMPLANTS: Implant Name Type Inv. Item Serial No. Profile Saw Operator Lot No. LRB No. Used [employer] [id number] CORKSCREW SUTURETAPE 5.5MM 14.7MM BIOABSORBABLE FULL THREAD 1.3MM - [id number] [employer] [id number] Corkscrew Suturetape 5.5mm 14.7mm Bioabsorbable Full Thread 1.3mm [employer] [id number] Left 1 [employer] [id number] CORKSCREW SUTURETAPE 5.5MM 14.7MM BIOABSORBABLE FULL THREAD 1.3MM - [id number] [employer] [id number] Corkscrew Suturetape 5.5mm 14.7mm Bioabsorbable Full Thread 1.3mm [employer] [id number] Left 1 [employer] [id number] CORKSCREW SUTURETAPE 5.5MM 14.7MM BIOABSORBABLE FULL THREAD 1.3MM - [id number] [employer] [id number] Corkscrew Suturetape 5.5mm 14.7mm Bioabsorbable Full Thread 1.3mm [employer] [id number] Left 1 [employer] AR-2324 BCM SWIVELOCK 4.75MM 24.5MM SELF PUNCH VENT SHOULDER ANCHOR SUTURE - [id number] INC AR-2324 BCM Swivelock 4.75mm 24.5mm Self Punch Vent Shoulder Bassett Suture [employer] [id number] Left 1 [employer] AR-2324 BCM SWIVELOCK 4.75MM 24.5MM SELF PUNCH VENT SHOULDER ANCHOR SUTURE - [id number] INC AR-2324 BCM Swivelock 4.75mm 24.5mm Self Punch Vent Shoulder Bassett Suture [employer] [id number] Left 1 * Anesthesia Post-op Follow-up Note - Betsy Whitman NP - 02/27/2019 8:01 AM CDT Nancy Chavis [id number] 02/27/2019 Surgeon(s) and Role: * Darrin Bryant MD - Primary * Noel Flores MD - Fellow Block Type: ISB Procedure: LEFT SHOULDER ARTHROSCOPIC ROTATOR CUFF REPAIR, POSSIBLE BICEPS TENOTOMY (WHEEL IN/OUT: 2 HOURS) (L), LEFT (L) Anesthesiologist: ASHLEY Catheter and pump education completed with patient and family member present. Written instructions provided. Numbness wore off date and time: 1200 POD #1 Date: 02/28/19 1247 Basal Rate: 6 Bolus Frequency: none Pain Scale: 7 Frequency of PO pills: 2 tabs q 4 hrs Catheter site free from erythema, drainage, not dislodged, not leaking. Comments: Reviewed use of pain pump and narcotics. Encouraged use of dose of button to help better control the discomfort. Suggested taking Tylenol 1000 mg every 6 hrs (Not to exceed 4000 mg in 24 hrperiod) POD #2 Date: 03/01/19 - left message POD #3 Date: 03/02/19 Catheter removed without difficulty at home. Site free from erythema or edema per pt. Betsy Whitman NP * Perioperative Nursing Note - Jayashree Tillman RN - 02/27/2019 7:06 AM CDT Spouse Ernesto here with drive home and stay overnight. Has own ice. * Pre-Procedure Instructions - Vivian Tyler RN - 02/24/2019 2:17 PM CDT Pt's will drive pt to and from, and will care for pt for 24 hours post surgery. Directions to facility [address] [place] [address] Bring glass Remove make-up, perfume, lipstick and nail zimbabwean. Shower the night before and morning of surgery with anti-bacterial soap. Leave jewelry and valuables at home EXCEPT Drivers license and Insurance card. Wear loose fitting clothes. NPO after Midnight. No gums, mints, candy or chewing tobacco. No ice or water. You may brush your teeth, just make sure you spit it all out Hold NSAIDS, vitamins, or supplements for 5 days. Patient is stopping Meloxicam today. Patient will not take Lisinopril-HCTZ morning of surgery. Scopolamine patch ordered preop Call after 10 a.m. One day before scheduled procedure for arrival time. documented in this encounter Plan of Treatment Not on file documented as of this encounter Procedures Procedure Name Priority Date/Time Associated Diagnosis Comments ARTHROSCOPY SHOULDER ROTATOR CUFF REPAIR 02/27/2019 8:06 AM CDT Right shoulder pain, unspecified chronicity Traumatic complete tear of left rotator cuff, initial encounter POCT PREOP SCREEN ([id number]-FF-[id number]-CR-[id number] BG-HCT) Routine 02/27/2019 7:16 AM CDT documented in this encounter Results * POCT Preop screen ([id number]-Hct) (02/27/2019 7:16 AM CDT) Pathologist [facility] K POC 4.4 3.3 - 4.9 mmol/L KARLY ZHU Blood specimen (specimen) 02/27/2019 7:16 AM CDT 02/27/2019 7:16 AM CDT us Darrin Bryant MD LAB POCT ORDERABLES - DEVICE Final Result [facility] Department [place] [address] documented in this encounter Visit Diagnoses Diagnosis Right shoulder pain Pain in joint, shoulder region Traumatic complete tear of left rotator cuff documented in this encounter Admitting Diagnoses Diagnosis Right shoulder pain Pain in joint, shoulder region Traumatic complete tear of left rotator cuff documented in this encounter Administered Medications Inactive Administered Medications - up to 3 most recent administrations Medication Order MAR Action Action Date Dose Rate Site Lactated Ringer's (LR) infusion 30 mL/hr, intravenous, Continuous, Starting on Kimberly 02/27/19 at 0715 New Bag 02/27/2019 9:14 AM CDT New Bag 02/27/2019 7:17 AM CDT 30 mL/hr 30 mL/hr ropivacaine preservative free 1,000 mg/500 mL (0.2%) infusion (premix) Continuous Rate: 6 mL/hr, Patient Bolus Dose: 4 mL, Lockout Interval: 30 Minutes, perineural, Continuous, Starting on Kimberly 02/27/19 at 1100, Until Kimberly 02/27/19 at 1555, 500 mL, Indications: Pain Treatment Adjunct, Please perform aspiration check of perineural catheter prior to initiating infusion. Notify anesthesiology attending for any positive aspiration prior to initating infusion., RoutineIndications:Pain Treatment Adjunct New Bag 02/27/2019 10:25 AM CDT documented in this encounter Historical Medications * This list may reflect changes made after this encounter. meloxicam (MOBIC) 15 mg tablet Take 15 mg by mouth daily gabapentin (NEURONTIN) 300 mg capsule Take 300 mg by mouth daily lisinopril-hydroC HLOROthiazide (PRINZIDE,ZESTORE TIC) 20-12.5 mg per tabletIndications :hypertension Take 1 tablet by mouth daily added in this encounter Active and Recently Administered Medications Times are shown in CDT. Scheduled Medication Order 02/25/2019 02/26/2019 02/27/2019 ceFAZolin (ANCEF) injection 2,000 mg (COMPLETED) 2,000 mg, intravenous, Once, On Kimberly 02/27/19 at 0715, For 1 dose, Intra-Op, Administer within 60 minutes of incision., Indications: Prophylaxis, Surgical 0808 (Given - Provid er: Maida Chopra CRNA) scopolamine patch 72 hour 1 patch 1 patch, transdermal, Administer over 72 Hours, Once, On Kimberly 02/27/19 at 0715, For 1 dose, Pre-Op, Apply to beach-chair position shoulder surgery patients, and to patients with a history of PONV and/or Motion Sickness. Do NOT administer to patients with a history of BPH or Glaucoma. Consult Anesthesiologist with any questions., Indications: Motion Sickness, Prevention of Motion Sickness, Prevention of Post-Operative Nausea and Vomiting 0715 (Due) Continuous Medication Order 02/25/2019 02/26/2019 02/27/2019 Lactated Ringer's (LR) infusion 30 mL/hr, intravenous, Continuous, Starting on Kimberly 02/27/19 at 0715 0717 (New Bag - Prov ider: Jayashree Tillman RN)0914 (New Bag - Provider: Maida Chopra CRNA)0957 (Anesthesia Volume Adjustment - Provider: Maida Chopra CRNA)1012 (Stopped - Provider: Pao Denton RN) Lactated Ringer's (LR) infusion 125 mL/hr, intravenous, Continuous, Starting on Kimberly 02/27/19 at 1100, Phase I 1012 (Continued from OR - Provider: Pao Denton RN)1145 (Stopped - Provider: Pao Denton RN) ropivacaine preservative free 1,000 mg/500 mL (0.2%) infusion (premix) Continuous Rate: 6 mL/hr, Patient Bolus Dose: 4 mL, Lockout Interval: 30 Minutes, perineural, Continuous, Starting on Kimberly 02/27/19 at 1100, Until Kimberly 02/27/19 at 1555, 500 mL, Indications: Pain Treatment Adjunct, Please perform aspiration check of perineural catheter prior to initiating infusion. Notify anesthesiology attending for any positive aspiration prior to initating infusion., Routine 1025 (New Bag - Prov ider: Pao Denton RN - Comment: to right neck peripheral nerve block catheter site, no blood on aspiration, clamp open & verified with 2nd RN, bolus dose given without alarms) PRN Medication Order 02/25/2019 02/26/2019 02/27/2019 acetaminophen (TYLENOL) tablet 500 mg 500 mg, oral, As needed, headaches, other, Breakthrough Pain and Supplement to other pain meds, Starting on Kimberly 02/27/19 at 1021, For 2 doses, Phase I, When able to tolerate PO after consulting with Anesthesiologist., Indications: Pain bupivacaine-EPINEPHrine (MARCAINE with EPI) 0.25 %-1:200,000 preservative free injection (CANCELED) As needed, Starting on Kimberly 02/27/19 at 0844, Intra-Op 0844 (Given - Provid er: Noel Flores MD) diphenhydrAMINE (BENADRYL) injection 12.5 mg 12.5 mg, intravenous, Administer over 1 Minutes, Every 5 min PRN, itching, other, For Nausea, administer 25 mg IV., Starting on Kimberly 02/27/19 at 1021, For 4 doses, Phase I, Max cumulative dose 50 mg., Indications: Itching fentaNYL (SUBLIMAZE) preservative free syringe 25 mcg 25 mcg, intravenous, Every 5 min PRN, 1st line for pain, uncontrolled pain on PACU admission for outpatients, Starting on Kimberly 02/27/19 at 1021, For 4 doses, Phase I, Use as 1st line for outpatients, dose not to exceed 100 mics. Then proceed to second line at [facility] after consulting anestheiologist, Indications: Pain hydrALAZINE (APRESOLINE) injection 5 mg 5 mg, intravenous, Administer over 2 Minutes, Every 5 min PRN, high blood pressure, Starting on Kimberly 02/27/19 at 1021, Phase I, Max cumulative dose 20 mg. Dose if systolic BP greater than 180 AND heart rate less than 70., Indications: hypertension HYDROcodone-acetaminophen (NORCO) 5-325 mg per tablet 1 tablet 1 tablet, oral, Every 20 min PRN, 3rd line for pain, breakthrough pain, May give TWO doses at the same time for severe pain after consulting with Anesthesiologist, Starting on Kimberly 02/27/19 at 1021, For 2 doses, Phase I, When able to tolerate PO., Indications: Pain HYDROmorphone (DILAUDID) injection 0.2 mg 0.2 mg, intravenous, Administer over 2 Minutes, Every 5 min PRN, 2nd line for pain, Use as 1st line pain med for patients at [facility]. Use as 2nd line at [facility] after consulting with anesthesiologist., Starting on Kimberly 02/27/19 at 1021, Phase I, Notify Anesthesiologist if total PACU dose reaches 2 mg for inpatients and 1 mg total for outpatients, and pain score 5/10 or more., Indications: Pain labetalol (NORMODYNE,TRANDATE) injection 5 mg 5 mg, intravenous, at 30 mL/hr, Administer over 2 Minutes, Every 5 min PRN, high blood pressure, Starting on Kimberly 02/27/19 at 1021, Phase I, Max cumulative dose 20 mg. Dose if systolic blood pressure greater than 180 AND HR greater than 70. Lactated Ringer's (LR) irrigation (CANCELED) As needed, Starting on Kimberly 02/27/19 at 0845, Intra-Op 0845 (Given - Provid er: Darrin Bryant MD) meperidine (DEMEROL) preservative free injection 12.5 mg 12.5 mg, intravenous, Every 10 min PRN, shivering, Starting on Kimberly 02/27/19 at 1021, For 2 doses, Phase I, Max cumulative dose 25 mg., Indications: Shivering ondansetron (ZOFRAN) injection 4 mg 4 mg, intravenous, Administer over 2 Minutes, Once as needed, nausea, vomiting, Starting on Kimberly 02/27/19 at 1021, For 1 dose, Phase I, Proceed to prochlorperazine if ondansetron has been given within the last 6 hours. prochlorperazine (COMPAZINE) injection 5 mg 5 mg, intravenous, Every 10 min PRN, nausea, vomiting, Check with Anesthesiologist before administring, and ask about IV versus IM., Starting on Kimberly 02/27/19 at 1021, For 2 doses, Phase I, If nausea/vomiting not relieved by ondansetron within 30 minutes or if ondansetron has been given within the last 6 hours. sodium chloride 0.9% flush 0.5-20 mL 0.5-20 mL, intra-catheter, As needed, line care, Flush [place] to keep vein open., Starting on Kimberly 02/27/19 at 0642, Pre-Op, Flush volume based on line type and size. Flush before and after each use. , Indications: Flushing documented in this encounter Orders Medications Ordered That José Miguel ht Not Have Been Administered Count Last Ordered Date First Ordered Date acetaminophen (TYLENOL) tablet 500 mg 1 bupivacaine-EPINEPHrine (MAR DOUG with EPI) 0.25 %-1:200,000 preservative free injection 1 02/27/2019 ceFAZolin (ANCEF) injection 2,000 mg 1 02/07 diphenhydrAMINE (BENADRYL) i njection 12.5 mg 1 02/27/2019 fentaNYL (SUBLIMAZE) preserv ative free syringe 25 mcg 1 02/27/2019 hydrALAZINE (APRESOLINE) injection 5 mg 1 0 02/27/2019 HYDROcodone-acetaminophen (N ORCO) 5-325 mg per tablet 1 tablet 1 02/27/2019 HYDROmorphone (DILAUDID) injection 0.2 mg 1 02/27/2019 labetalol (NORMODYNE,TRANDAT E) injection 5 mg 1 02/27/2019 Lactated Ringer's (LR) infusion 1 9 Lactated Ringer's (LR) irrigation 019 meperidine (DEMEROL) preserv ative free injection 12.5 mg 1 02/27/2019 ondansetron (ZOFRAN) injection 4 mg 1 02/27 prochlorperazine (COMPAZINE) injection 5 mg 1 02/27/2019 scopolamine patch 72 hour 1 patch 1 019 sodium chloride 0.9% flush 0.5-20 mL 1 02/07 documented in this encounter Care Teams Casting Agent Relationship Specialty Start Date End Date Kaleb Gutierrez MD [id number] [facility] [address] [place] [address] PCP - General 02/25/16 documented as of this encounter
--- OUTSIDE RECORDS SUMMARY | 2024-07-29 00:40 | XMS_ITS | Encounter Summary ---
Author Organization [facility] Healthcare Address [address] [place] [address] Care Team Providers Care Official Court Reporter Name Role Phone Kaleb Gutierrez MD Primary Care Provider Encounter Details Date Type Department Care Team (Late st Contact Info) Description 02/27/2019 8:02 AM CDT Anesthesia Event [facility] [address] [place] [id number] Usama Barrera MD [address] [place] [address] Betsy Whitman NP [address] [place] [address] Anesthesia Record Procedure Summary Procedure Name Responsible Anesthesiologist Anesthesia Start Time Anesthesia Stop Time LEFT SHOULDER ARTHROSCOPIC ROTATOR CUFF REPAIR, BICEPS TENOTOMY (Left: Shoulder) Usama Barrera MD 02/27/19 0802 02/27/19 1014 Events Date Time Event Comment 02/27/2019 0704 0730 Time out - Regional 0731 Face Time 0732 Start Supplemental O2 0733 An Block Induction The patie nt was reevaluated immediately before moderate or deep sedation and before anesthesia induction. 0737 Block Placed 0757 AN Equip Check 0802 An Start 0806 In Room 0806 An Start Data 0811 An Induction The patient was reevaluated immediately before moderate or deep sedation use and before anesthesia induction. 0814 An Intubation 0826 Anesthesia Ready 0838 Incision Start 0838 Proc Start 1005 An Extubation 1007 Proc Fin 1008 an stop data 1010 Out of Room 1013 Handoff to RN I completed my handoff to the receiving nurse during which we: 1. Patient identified 2. Responsible provider identified 3. Pertinent medical history reviewed 4. Procedure type and surgical course discussed 5. Intraoperative anesthetic management and any significant issues discussed 6. Expectations and concerns for postop period discussed 7. Questions solicited from receiving nurse 8. Patient disposition at the time of handoff: No value filed. 1014 An Stop Meds Name Total midazolam 2 mg/2 mL 2 mg fentaNYL PF 100 mcg propofol 160 mg bupivacaine 0.5 % PF 45 mL lidocaine 1 % PF 40 mg rocuronium 30 mg famotidine PF 20 mg ondansetron PF 4 mg dexamethasone 4 mg/mL 4 mg lidocaine 1 % 40 mg ceFAZolin (ANCEF) injection 2,000 mg 2,0 00 mg phenylephrine syringe 1 mg/10 mL 300 mcg Lactated Ringer's (LR) infusion 1,100 mL * Agents Name O2 Sevoflurane Inspired Sevoflurane * Blood No blood administrations on file. Lines, Drains, and Airways Type Details Placement Removal Peripheral IV Placement Date: 02/27/19; Placement Time: 07; Catheter Size: 20 G; Orientation: Right; Location: Forearm; Site Prep: Chlorhexidine; Insertion Attempts: 1; Patient Tolerance: Tolerated well; Removal Date: 02/27/19; Removal Time: 1145; Removal Reason: Discharge 02/27/19 0716 by Jayashree Tillman RN 02/27/19 1145 by Pao Denton, ROBYN PNB catheter Placement Date: 02/27/19; Placement Time: 0744 (created via procedure documentation); Pt Tolerance: brachial plexus - interscalene; Removal Date: Injectable, Topical, None; Removal Time: Tolerated well; 03/02/19; 1446 02/27/19 0744 by Usama Barrera MD 03/02/19 1446 by Betsy Whitman NP ETT Placement Date: 02/27/19; Placement Time: 08 (created via procedure documentation); Mask Ventilation: 1; Technique: Direct laryngoscopy; Type: ETT - single; Single Lumen Tube Size: 7 mm; Cuffed: Yes; Laryngoscope: Tono; Blade Size: 4; Location: Oral; Grade View: Grade I; Insertion Attempts: 1; Placement Verification: Auscultation, Capnometry; Removal Date: 02/27/19; Removal Time: 1005 02/27/19 0828 by Maida Chopra CRNA 02/27/19 1005 by Maida Chopra CRNA RETIRED Surgical Site 02/27/19; 0846; Le ft; Shoulder; Surgical wounds well approximated; 02/27/19; 1153 (left shoulder dressing c/d/i) 02/27/19 0846 by Cher Smith RN 02/27/19 1153 by Pao Denton, ROBYN documented in this encounter Social History Tobacco Use Types Packs/Day Years [...] on file 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 Gender Identity Not on file Sexual Orientation Not on file documented as of this encounter OR Notes * Anesthesia Postprocedure Evaluation - Usama Barrera MD - 02/27/2019 10:47 AM CDT Patient: Nancy Chavis Procedure Summary Date: 02/27/19 Room / Location: [facility] OPERATING [facility]OM 5 / [facility] Anesthesia Start: 801 Anesthesia Stop: 1014 Procedure: LEFT SHOULDER ARTHROSCOPIC ROTATOR CUFF REPAIR, BICEPS TENOTOMY (Left Shoulder) Diagnosis: Right shoulder pain, unspecified chronicity Traumatic complete tear of left rotator cuff, initial encounter (Right shoulder pain, unspecified chronicity [M25.511]) (Traumatic complete tear of left rotator cuff, initial encounter [S46.012A]) Provider: Darrin Bryant MD Responsible Provider: Usama Barrera MD Anesthesia Type: general, regional for postop pain per surgeon request, PNB - continuous catheter, PNB - single shot ASA Status: 2 Anesthesia Type: general, regional for postop pain per surgeon request, PNB - continuous catheter, PNB - single shot Last vitals BP 156/90 Pulse 72 Temp 36.3 ??C (97.3 ??F) (Tympanic) Resp 16 SpO2 97% Anesthesia Post Evaluation Patient location during evaluation: PACU Patient participation: complete - patient participated Level of consciousness: fully awake Pain score: 0 Pain management: adequate Airway patency: adequate Evidence of recall: no Anesthetic complications: no Cardiovascular status: hemodynamically stable and acceptable Respiratory status: acceptable and room air Hydration status: acceptable Pt is: normothermic Nausea/Vomiting status: none * Anesthesia Procedure Notes - Maida Chopra CRNA - 02/27/2019 8:28 AM CDTAssociated Order(s): Airway Airway Patient location: OR Urgency: elective Indications for airway management: anesthesia Difficult airway: no Emergent airway documentation: Risks and benefits discussed: yes Consent obtained: yes Consent given by: patient Airway prep: Preoxygenated: yes Mask difficulty assessment: 1 - vent by mask Spontaneous ventilation during airway: absent Sedation level during airway: GA Final airway details: Final airway type: endotracheal airway Tube type: ETT ETT size: 7.0 mm Cuffed: yes Technique used for successful ETT placement: direct laryngoscopy Insertion site: oral Blade type: Tono Blade size: 4 Cormack-Lehane (direct): grade I - full view of glottis Cuff inflated with: air ETT to lips: 22 cm Placement verified by: auscultation and CO2 detection Airway secured with: silk tape Number of attempts: 1 Ventilation between attempts: none * Anesthesia Procedure Notes - Usama Barrera MD - 02/27/2019 7:44 AM CDTAssociated Order(s): Peripheral Block Peripheral Block Patient location during procedure: pre-op holding Reason for block: post-op pain management per surgeon request Block type: single shot Laterality: left Block type: intercostobrachial nerve block Procedure prep: Preprocedure checklist: patient identified, procedure contraindications assessed, site marked, procedure consent, surgical consent, IV checked, risks, benefits and alternatives discussed, monitors and equipment checked and timeout performed Patient position: sitting Procedure performed while patient: sedate with meaningful contact Monitoring: oximetry Supplemental O2: nasal cannula Prep solution: chlorhexidine/alcohol Peripheral nerve block: Technique: landmark(s) Needle type: short-bevel Needle gauge: 25G. Needle length: 50 mm Injection assessment: injection made incrementally with constant monitoring, negative aspiration for heme, no paresthesias noted, normal resistance to injection and see flowsheet for medication details Assessment: Block success: full evaluation pending Events: patient tolerated procedure well with no complications * Anesthesia Procedure Notes - Usama Barrera MD - 02/27/2019 7:44 AM CDTAssociated Order(s): Peripheral Block Peripheral Block Patient location during procedure: pre-op holding Reason for block: post-op pain management per surgeon request Ultrasound image in chart or stored: yes Block type: catheter continuous infusion Laterality: left Block type: brachial plexus - interscalene Procedure prep: Preprocedure checklist: patient identified, procedure contraindications assessed, site marked, procedure consent, surgical consent, IV checked, risks, benefits and alternatives discussed, monitors and equipment checked and timeout performed Patient position: sitting and head of bed elevated Procedure performed while patient: sedate with meaningful contact Monitoring: oximetry Supplemental O2: nasal cannula Prep solution: chlorhexidine/alcohol PPE: provider hat/mask, sterile gloves, sterile drape and sterile probe cover and gel Skin infiltrated with lidocaine 1%: yes Peripheral nerve block: Technique: ultrasound guided Needle type: insulated and short-bevel Needle gauge: 18 G Needle length: 80 mm Injection assessment: injection made incrementally with constant monitoring, local visualized surrounding nerve on ultrasound, negative aspiration for heme, no paresthesias noted, normal resistance to injection and see flowsheet for medication details Catheter: Catheter type: catheter over needle Catheter over needle length: 51 Catheter placement details: catheter position confirmed by ultrasound, catheter tunneled, steri-strips, dermal adhesive, occlusive dressing applied and no aspiration of heme Assessment: Block success: full evaluation pending Events: patient tolerated procedure well with no complications Additional comments: Motor 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 Block placement was assisted by PARRISH Rivera * Anesthesia Preprocedure Evaluation - Usama Barrera MD - 02/27/2019 7:04 AM CDT Anesthesia Evaluation Nancy Chavis is a 58 y.o. female Procedure(s): LEFT SHOULDER ARTHROSCOPIC ROTATOR CUFF REPAIR, POSSIBLE BICEPS TENOTOMY (WHEEL IN/OUT: 2 HOURS) LEFT Pre-Op Diagnosis Codes: * Right shoulder pain, unspecified chronicity [M25.511] * Traumatic complete tear of left rotator cuff, initial encounter [S46.012A] Patient Active Problem List Diagnosis ??? Right shoulder pain ??? Traumatic complete tear of left rotator cuff Past Medical History: Diagnosis Date ??? GERD (gastroesophageal reflux disease) Once a month. Does not take medication ??? 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 Hypertension takes lisinopril, HCTZ Past Surgical History: Procedure Laterality Date ??? FOOT SURGERY Right 2017 ??? HYSTERECTOMY 2013 partial ??? SHOULDER ARTHROSCOPY Right 2007 rotator cuff repair OB History None No Known Allergies HOME MEDICATIONS : gabapentin (NEURONTIN) 300 mg capsule lisinopril-hydroCHLOROthiazide (PRINZIDE,ZESTORETIC) 20-12.5 mg per tablet meloxicam (MOBIC) 15 mg tablet oxyCODONE (ROXICODONE) 5 mg immediate release tablet Current Facility-Administered Medications: ??? ceFAZolin (ANCEF) injection 2,000 mg, 2,000 mg, intravenous, Once ??? Lactated Ringer's (LR) infusion, 30 mL/hr, intravenous, Continuous ??? scopolamine patch 72 hour 1 patch, 1 patch, transdermal, Once ??? sodium chloride 0.9% flush 0.5-20 mL, 0.5-20 mL, intra-catheter, PRN Social History Tobacco Use Smoking Status Never Smoker Smokeless Tobacco Never Used Substance and Sexual Activity Alcohol Use Not Currently ??? Frequency: Never Comment: has not for 12 years Substance and Sexual Activity Drug Use Never History reviewed. No pertinent family history. PAT Physical Exam Vitals: 02/27/19 0656 BP: 145/73 Pulse: 60 Resp: 16 Temp: 36.2 ??C (97.2 ??F) SpO2: 99% PT: No results found for requested labs within last 720 hours. INR: No results found for requested labs within last 720 hours. APTT: No results found for requested labs within last 720 hours. Hgb A1C: No results found for requested labs within last 720 hours. CBC RBC: No results found for requested labs within last 720 hours. RDW: No results found for requested labs within last 720 hours. MCHC: No results found for requested labs within last 720 hours. MCH: No results found for requested labs within last 720 hours. MCV: No results found for requested labs within last 720 hours. Hct: No results found for requested labs within last 720 hours. Hgb: No results found for requested labs within last 720 hours. WBC: No results found for requested labs within last 720 hours. MPV: No results found for requested labs within last 720 hours. Platelets: No results found for requested labs within last 720 hours. RDW CV: No results found for requested labs within last 720 hours. RDW Sd: No results found for requested labs within last 720 hours. BMP Glucose: No results found for requested labs within last 720 hours. Calcium: No results found for requested labs within last 720 hours. Sodium: No results found for requested labs within last 720 hours. Potassium: No results found for requested labs within last 720 hours. CO2: No results found for requested labs within last 720 hours. Chloride: No results found for requested labs within last 720 hours. BUN: No results found for requested labs within last 720 hours. Creatinine: No results found for requested labs within last 720 hours. DOS Physical Exam Medical history, medications, and allergies reviewed. Attestation: This PAT evaluation Airway Exam: Mallampati: II Cervical ROM: FROM Cardiovascular Exam: Rate: regular Rhythm: regular Pulmonary Exam: LCTA, bilat Anesthesia Plan ASA 2 My patient is approved for the Anesthesia Controlled Medication protocol when under care of a PIN MAKER Planned anesthesia: General, regional for postop pain per surgeon request, PNB - continuous catheter and PNB - single shot Team communication plan: oral ET tube Upper extremity: brachial plexus - interscalene and intercostobrachial nerve block Informed Consent: Anesthesia plan and risks discussed with patient. Consent and Attending signature: I and/or my designee have discussed the anesthesia plan, benefits, possible alternatives, parental presence at time of induction (if indicated), and clinically relevant risks that may include dental injury, unintentional awareness, and/or other complications. The patient and/or parent/legal guardian understand, and agree to proceed. All questions answered. documented in this encounter Miscellaneous Notes * Addendum Note - Betsy Whitman NP - 03/03/2019 7:46 AM CDT Addendum created 03/03/19 0746 by Betsy Whitman NP Intraprocedure LDAs edited, LDA properties accepted documented in this encounter Plan of Treatment Not on file documented as of this encounter Procedures Procedure Name Priority Date/Time Associated Diagnosis Comments VT AN PROCEDURE PLACEHOLDER Routine 02/27/2019 8:28 AM CDT Procedure Note - Maida Chopra CRNA - 02/27/2019 8:28 AM CDTThis note is in progress. Airway Patient location: OR Urgency: elective Indications for airway management: anesthesia Difficult airway: no Emergent airway documentation: Risks and benefits discussed: yes Consent obtained: yes Consent given by: patient Airway prep: Preoxygenated: yes Mask difficulty assessment: 1 - vent by mask Spontaneous ventilation during airway: absent Sedation level during airway: GA Final airway details: Final airway type: endotracheal airway Tube type: ETT ETT size: 7.0 mm Cuffed: yes Technique used for successful ETT placement: direct laryngoscopy Insertion site: oral Blade type: Tono Blade size: 4 Cormack-Lehane (direct): grade I - full view of glottis Cuff inflated with: air ETT to lips: 22 cm Placement verified by: auscultation and CO2 detection Airway secured with: silk tape Number of attempts: 1 Ventilation between attempts: none VT AN ELECTIVE ENDOTRACHEAL AIRWAY Routine 02/27/2019 8:28 AM CDT Procedure Note - Maida Chopra CRNA - 02/27/2019 8:28 AM CDTThis note is in progress. Airway Patient location: OR Urgency: elective Indications for airway management: anesthesia Difficult airway: no Emergent airway documentation: Risks and benefits discussed: yes Consent obtained: yes Consent given by: patient Airway prep: Preoxygenated: yes Mask difficulty assessment: 1 - vent by mask Spontaneous ventilation during airway: absent Sedation level during airway: GA Final airway details: Final airway type: endotracheal airway Tube type: ETT ETT size: 7.0 mm Cuffed: yes Technique used for successful ETT placement: direct laryngoscopy Insertion site: oral Blade type: Tono Blade size: 4 Cormack-Lehane (direct): grade I - full view of glottis Cuff inflated with: air ETT to lips: 22 cm Placement verified by: auscultation and CO2 detection Airway secured with: silk tape Number of attempts: 1 Ventilation between attempts: none VT AN PROCEDURE PLACEHOLDER Routine 02/27/2019 7:44 AM CDT Procedure Note - Usama Barrera MD - 02/27/2019 7:44 AM CDTThis note is in progress. Peripheral Block Patient location during procedure: pre-op holding Reason for block: post-op pain management per surgeon request Block type: single shot Laterality: left Block type: intercostobrachial nerve block Procedure prep: Preprocedure checklist: patient identified, procedure contraindicationsassessed, site marked, procedure consent, surgical consent, IV checked,risks, benefits and alternatives discussed, monitors and equipment checkedand timeout performed Patient position: sitting Procedure performed while patient: sedate with meaningful contact Monitoring: oximetry Supplemental O2: nasal cannula Prep solution: chlorhexidine/alcohol Peripheral nerve block: Technique: landmark(s) Needle type: short-bevel Needle gauge: 25G. Needle length: 50 mm Injection assessment: injection made incrementally with constantmonitoring, negative aspiration for heme, no paresthesias noted, normalresistance to injection and see flowsheet for medication details Assessment: Block success: full evaluation pending Events: patient tolerated procedure well with no complications VT AN PROCEDURE PLACEHOLDER Routine 02/27/2019 7:44 AM CDT Procedure Note - Usama Barrera MD - 02/27/2019 7:44 AM CDTThis note is in progress. Peripheral Block Patient location during procedure: pre-op holding Reason for block: post-op pain management per surgeon request Ultrasound image in chart or stored: yes Block type: catheter continuous infusion Laterality: left Block type: brachial plexus - interscalene Procedure prep: Preprocedure checklist: patient identified, procedure contraindicationsassessed, site marked, procedure consent, surgical consent, IV checked,risks, benefits and alternatives discussed, monitors and equipment checkedand timeout performed Patient position: sitting and head of bed elevated Procedure performed while patient: sedate with meaningful contact Monitoring: oximetry Supplemental O2: nasal cannula Prep solution: chlorhexidine/alcohol PPE: provider hat/mask, sterile gloves, sterile drape and sterile probecover and gel Skin infiltrated with lidocaine 1%: yes Peripheral nerve block: Technique: ultrasound guided Needle type: insulated and short-bevel Needle gauge: 18 G Needle length: 80 mm Injection assessment: injection made incrementally with constantmonitoring, local visualized surrounding nerve on ultrasound, negativeaspiration for heme, no paresthesias noted, normal resistance to injectionand see flowsheet for medication details Catheter: Catheter type: catheter over needle Catheter over needle length: 51 Catheter placement details: catheter position confirmed by ultrasound,catheter tunneled, steri-strips, dermal adhesive, occlusive dressingapplied and no aspiration of heme Assessment: Block success: full evaluation pending Events: patient tolerated procedure well with no complications Additional comments: Motor function intact post block, 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 Block placement was assisted by PARRISH Rivera LDA PERIPHERAL NERVE CATHETER Routine 02/27/2019 7:44 AM CDT Procedure Note - Usama Barrera MD - 02/27/2019 7:44 AM CDTThis note is in progress. Peripheral Block Patient location during procedure: pre-op holding Reason for block: post-op pain management per surgeon request Ultrasound image in chart or stored: yes Block type: catheter continuous infusion Laterality: left Block type: brachial plexus - interscalene Procedure prep: Preprocedure checklist: patient identified, procedure contraindicationsassessed, site marked, procedure consent, surgical consent, IV checked,risks, benefits and alternatives discussed, monitors and equipment checkedand timeout performed Patient position: sitting and head of bed elevated Procedure performed while patient: sedate with meaningful contact Monitoring: oximetry Supplemental O2: nasal cannula Prep solution: chlorhexidine/alcohol PPE: provider hat/mask, sterile gloves, sterile drape and sterile probecover and gel Skin infiltrated with lidocaine 1%: yes Peripheral nerve block: Technique: ultrasound guided Needle type: insulated and short-bevel Needle gauge: 18 G Needle length: 80 mm Injection assessment: injection made incrementally with constantmonitoring, local visualized surrounding nerve on ultrasound, negativeaspiration for heme, no paresthesias noted, normal resistance to injectionand see flowsheet for medication details Catheter: Catheter type: catheter over needle Catheter over needle length: 51 Catheter placement details: catheter position confirmed by ultrasound,catheter tunneled, steri-strips, dermal adhesive, occlusive dressingapplied and no aspiration of heme Assessment: Block success: full evaluation pending Events: patient tolerated procedure well with no complications Additional comments: Motor function intact post block, 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 Block placement was assisted by PARRISH Rivera documented in this encounter Visit Diagnoses Not on filedocumented in this encounter Administered Medications Inactive Administered Medications - up to 3 most recent administrations Medication Order MAR Action Action Date Dose Rate Site bupivacaine (MARCAINE) 0.5 % (5 mg/mL) preservative free injection As needed, Starting on Kimberly 02/27/19 at 0737, Anesthesia Intra-op Given 02/27/2019 7:37 AM CDT 45 mL ceFAZolin (ANCEF) injection 2,000 mg 2,000 mg, intravenous, Once, On Kimberly 02/27/19 at 0715, For 1 dose, Intra-Op, Administer within 60 minutes of incision., Indications: Prophylaxis, SurgicalIndications:Prophylaxis, Surgical Given 02/27/2019 8:08 AM CDT 2,000 mg dexamethasone (DECADRON) 4 mg/mL injection Administer over 2 Minutes, As needed, Starting on Kimberly 02/27/19 at 0811, Anesthesia Intra-op Given 02/27/2019 8:11 AM CDT 4 mg famotidine (PEPCID) injection intravenous, Administer over 2 Minutes, As needed, Starting on Kimberly 02/27/19 at 0811, Anesthesia Intra-op Given 02/27/2019 8:11 AM CDT 20 mg fentaNYL (SUBLIMAZE) preservative free injection intravenous, As needed, Starting on Kimberly 02/27/19 at 0733, Anesthesia Intra-op Given 02/27/2019 7:33 AM CDT 100 mcg Lactated Ringer's (LR) infusion 30 mL/hr, intravenous, Continuous, Starting on Kimberly 02/27/19 at 0715 New Bag 02/27/2019 9:14 AM CDT New Bag 02/27/2019 7:17 AM CDT 30 mL/hr 30 mL/hr lidocaine (XYLOCAINE) 10 mg/mL (1 %) injection As needed, Starting on Kimberly 02/27/19 at 0758, Anesthesia Intra-op, Indications: Administration of Local AnesthesiaIndications:Administration of Local Anesthesia Given 02/27/2019 7:58 AM CDT 40 mg lidocaine PF (XYLOCAINE) 10 mg/mL (1 %) preservative free injection As needed, Starting on Kimberly 02/27/19 at 0811, Anesthesia Intra-op Given 02/27/2019 9:21 AM CDT 5 mg Given 02/27/2019 8:11 AM CDT 35 mg midazolam (VERSED) injection intravenous, As needed, Starting on Kimberly 02/27/19 at 0733, Anesthesia Intra-op Given 02/27/2019 7:33 AM CDT 2 mg ondansetron (ZOFRAN) injection intravenous, Administer over 2 Minutes, As needed, Starting on Kimberly 02/27/19 at 0811, Anesthesia Intra-op Given 02/27/2019 8:11 AM CDT 4 mg phenylephrine (TAYLOR-SYNEPHRINE) 1 mg/10 mL (100 mcg/mL) in sodium chloride 0.9% (premix) As needed, Starting on Kimberly 02/27/19 at 0846, Anesthesia Intra-op Given 02/27/2019 9:12 AM CDT 100 mcg Given 02/27/2019 8:57 AM CDT 100 mcg Given 02/27/2019 8:46 AM CDT 100 mcg propofol (DIPRIVAN) IV intravenous, As needed, Starting on Kimberly 02/27/19 at 0811, Anesthesia Intra-op Given 02/27/2019 9:21 AM CDT 20 mg Given 02/27/2019 8:11 AM CDT 140 mg rocuronium (ZEMURON) injection intravenous, As needed, Starting on Kimberly 02/27/19 at 0811, Anesthesia Intra-op Given 02/27/2019 8:11 AM CDT 30 mg documented in this encounter Orders Procedures Count Last Ordered Date First Orde red Date Airway 1 02/27/2019 Peripheral Block 2 02/27/2019 documented in this encounter Care Teams Official Court Reporter Relationship Specialty Start Date End Date Kaleb Gutierrez MD [address] [facility] [address] [place] [address] PCP - General 02/25/16 documented as of this encounter
--- OUTSIDE RECORDS SUMMARY | 2024-07-29 00:40 | XMS_ITS | Encounter Summary ---
Author Organization [facility] Healthcare Address [address] [place] [address] Care Team Providers Care Senior C Developer Name Role Phone Kaleb Gutierrez MD Primary Care Provider Encounter Details Date Type Department Care Team (Late st Contact Info) Description 02/27/2019 8:30 AM CDT - 02/27/2019 10:30 AM T Surgery [facility] [address] [place] [address] Darrin Bryant MD [address] [facility] [address] [place] [address] LEFT SHOULDER ARTHROSCOPIC ROTATOR CUFF REPAIR, BICEPS TENOTOMY Surgery Details Date/Time Status Location OR Service Patient Class Case Class Case Type Trauma Case? 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 Gender Identity Not on file Sexual Orientation Not on file documented as of this encounter Last Filed Vital Signs Vital Sign Reading Time Taken Comments Blood Pressure 137/83 02/27/2019 10:25 AM CDT Pulse 77 02/27/2019 10:30 AM CDT Temperature 36.3 ??C (97.3 ??F) 02/27/2019 10:12 AM C DT Respiratory Rate 16 02/27/2019 10:30 AM CDT Oxygen Saturation 96% 02/27/2019 10:30 AM CDT Inhaled Oxygen Concentration - - Weight 95 kg (209 lb 8 oz) 02/27/2019 6:46 AM CD T Height 160 cm (5' 3 ) 02/27/2019 6:46 AM CDT Body Mass Index 37.11 02/27/2019 6:46 AM CDT documented in this encounter Discharge Instructions * Discharge Instructions* Noel Flores MD - 02/27/2019 10:13 AM CDT [facility] Department of Orthopaedic Surgery Darrin Bryant MD, MSc. Office ([place]) [address] [place] [address] [place] [address] Shoulder Surgery (Outpatient) Postoperative Instructions Medications ??? Take 1-2 tablets of oxycodone every 4-6 hours as needed for pain. ??? Try to taper the use of your narcotic pills as soon as you feel comfortable. You may take ExtraStrength Tylenol or Tylenol only in place of the pain pills. Do not take additional Tylenol if you are taking Percocet, [place], or Vicodin. ??? You have been given [...] FOLLOW-UP After surgery Darrin Bryant MD, MSc Copy Holder of Orthopedic Surgery Shoulder and Elbow Service [facility] Orthopedics [facility] Dr. Darrin Bryant dictating using Fluency Direct. Inventory Control Specialist variances may occur. documented in this encounter [...] Date: 02/27/2019 Time: 10:36 AM ATTENDING ATTESTATION I, Dr. Darrin Bryant, am the Attending Surgeon of record for this procedure. I was present and scrubbed for all critical portions of the case including arthroscopic rotator cuff repair, biceps tenotomy. I was immediately available for non-critical portions of the case including superficial closure. IMPLANTS: Implant Name Type Inv. Item Serial No. Account Representative Lot No. LRB No. Used [employer] [id number] CORKSCREW SUTURETAPE 5.5MM 14.7MM BIOABSORBABLE FULL THREAD 1.3MM - [id number] [employer] AR-1927BCT Corkscrew Suturetape 5.5mm 14.7mm Bioabsorbable Full Thread 1.3mm [employer] [id number] Left 1 [employer] AR-1927BCT CORKSCREW SUTURETAPE 5.5MM 14.7MM BIOABSORBABLE FULL THREAD 1.3MM - [id number] [employer] AR-1927BCT Corkscrew Suturetape 5.5mm 14.7mm Bioabsorbable Full Thread 1.3mm [employer] [id number] Left 1 [employer] AR-1927BCT CORKSCREW SUTURETAPE 5.5MM 14.7MM BIOABSORBABLE FULL THREAD 1.3MM - [id number] [employer] AR-1927BCT Corkscrew Suturetape 5.5mm 14.7mm Bioabsorbable Full Thread 1.3mm [employer] [id number] Left 1 [employer] AR-2324 BCM SWIVELOCK 4.75MM 24.5MM SELF PUNCH VENT SHOULDER ANCHOR SUTURE - [id number] INC AR-2324 BCM Swivelock 4.75mm 24.5mm Self Punch Vent Shoulder [place] Suture [employer] [id number] Left 1 [employer] AR-2324 BCM SWIVELOCK 4.75MM 24.5MM SELF PUNCH VENT SHOULDER ANCHOR SUTURE - [id number] INC AR-2324 BCM Swivelock 4.75mm 24.5mm Self Punch Vent Shoulder [place] Suture [employer] [id number] Left 1 * Anesthesia Post-op Follow-up Note - Betsy Whitman NP - 02/27/2019 8:01 AM CDT Nancy Chavis [phone] 02/27/2019 Surgeon(s) and Role: * Darrin Bryant [...] 24 hours post surgery. Directions to facility [address] [place] [address] Bring glass Remove make-up, perfume, lipstick and nail hebrew. Shower the night before and morning of [...] rotator cuff, initial encounter POCT PREOP SCREEN (VVM-ZM-LQT-BUN-CR-H BG-HCT) Routine 02/27/2019 7:16 AM CDT documented in this encounter Results * POCT Preop screen (jmgjv-Lu-Ghe-KDK-Gz-Onw-Hct) (02/27/2019 7:16 AM CDT) K POC 4.4 3.3 - 4.9 mmol/L KARLY MENDEZ Blood specimen (specimen) 02/27/2019 7:16 AM CDT 02/27/2019 7:16 AM CDT us Darrin Bryant MD LAB POCT ORDERABLES - DEVICE Final Result KARLY ZHU [facility] Department [place] [address] documented in this encounter Visit Diagnoses Diagnosis Right shoulder pain Pain in joint, shoulder region Traumatic complete tear of left rotator cuff Right shoulder pain, unspecified chronicity Traumatic complete tear of left rotator cuff, initial encounter documented in this encounter Admitting Diagnoses Diagnosis Right shoulder pain Pain in joint, shoulder region Traumatic complete tear of left rotator cuff documented in this encounter Administered Medications Inactive Administered Medications - up to 3 most recent administrations Medication Order MAR Action Action Date Dose Rate Site bupivacaine-EPINEPHrine (MARCAINE with EPI) 0.25 %-1:200,000 preservative free injection As needed, Starting on Kimberly 02/27/19 at 0844, Intra-Op Given 02/27/2019 8:44 AM CDT 20 mL Surgical Site Lactated Ringer's (LR) infusion 30 mL/hr, intravenous, Continuous, Starting on Kimberly 02/27/19 at 0715 New Bag 02/27/2019 9:14 AM CDT New Bag 02/27/2019 7:17 AM CDT 30 mL/hr 30 mL/hr Lactated Ringer's (LR) irrigation As needed, Starting on Kimberly 02/27/19 at 0845, Intra-Op Given 02/27/2019 8:45 AM CDT 15,000 mL Operative Joint Spac e ropivacaine preservative free 1,000 mg/500 mL (0.2%) [...] 1st line pain med for patients at [facility]. Use as 2nd line at after consulting with anesthesiologist., Starting on Kimberly [...] mL, intra-catheter, As needed, line care, Flush [place] Block Hep Locks to keep vein open., Starting on Kimberly 02/27/19 at 0642, Pre-Op, Flush volume based on line type and size. Flush before and after each use. , Indications: Flushing documented in this encounter Orders Medications Ordered That José Miguel ht Not Have Been Administered Count Last Ordered Date First Ordered Date acetaminophen (TYLENOL) tablet 500 mg 1 ceFAZolin (ANCEF) injection 2,000 mg 1 02/07 [...] 02/27/2019 Lactated Ringer's (LR) infusion 1 9 meperidine (DEMEROL) preserv ative free injection 12.5 mg 1 02/27/2019 ondansetron (ZOFRAN) injection 4 mg 1 02/27 prochlorperazine (COMPAZINE) injection 5 mg 1 02/27/2019 scopolamine patch 72 hour 1 patch 1 019 sodium chloride 0.9% flush 0.5-20 mL 1 02/07 documented in this encounter Care Teams Senior C Developer Relationship Specialty Start Date End Date Kaleb Gutierrez MD [address] [place] [address] PCP - General 02/25/16 documented as of this encounter
--- OUTSIDE RECORDS SUMMARY | 2024-07-29 00:40 | XMS_ITS | Encounter Summary ---
Author Organization [facility] Address [address] [place] [address] Phone Care Team Providers Care Warehouse Analyst Name Role Phone Kaleb Gutierrez MD Primary Care Provider Encounter Details Date Type Department Care Team (Late st Contact Info) Description 02/26/2019 Orders Only [facility] Orthopaedic Surgery [address] 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 Gender Identity Not on file Sexual Orientation Not on file documented as of this encounter Ordered Prescriptions Prescription Sig Dispense Quantity Refills Last Filled Start Date End Date oxyCODONE (ROXICODONE) 5 mg immediate release tabletIndications: Pain TAKE 1 TO 2 TABLETS EVERY 4 TO 6 HOURS NEEDED FOR PAIN 40 tablet 02/26/2019 documented in this encounter Plan of Treatment Not on file documented as of this encounter Visit Diagnoses Diagnosis Acute pain of left shoulder- Primary documented in this encounter Care Teams Warehouse Analyst Relationship Specialty Start Date End Date Kaleb Gutierrez MD [address] [facility] [address] [place] [address] PCP - General 02/25/16 documented as of this encounter
--- OUTSIDE RECORDS SUMMARY | 2024-07-29 00:41 | XMS_ITS | Encounter Summary ---
Author Organization [facility] Healthcare Address [address] [place] [address] Care Team Providers Care Disposal Plant Operator Name Role Phone Kaleb Gutierrez MD Primary Care Provider Encounter Details Date Type Department Care Team (Latest Contact Info) Description 02/10/2019 12:35 PM CDT - 02/10/2019 11:59 PM CDT Hospital Encounter [facility] [address] [place] [address] Discharge Disposition: Discharge to home or self care Social History Tobacco Use Types Packs/Day Years Used Date Smoking Tobacco: Never Assessed Comments Unknown Sex and Gender Information Value Date Recorded Sex Assigned at Not on file 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 Gender Identity Not on file Sexual Orientation Not on file documented as of this encounter Medications at Time of Discharge gabapentin (NEURONTIN) 300 mg capsule Take 300 mg by mouth daily lisinopril-hydroC HLOROthiazide (PRINZIDE,ZESTORE TIC) 20-12.5 mg per tabletIndications :hypertension Take 1 tablet by mouth daily meloxicam (MOBIC) 15 mg tablet Take 15 mg by mouth daily documented as of this encounter Discharge Disposition Disposition Code Departure Means Destination Discharge to home or self care documented in this encounter Plan of Treatment Not on file documented as of this encounter Procedures Procedure Name Priority Date/Time Associated Diagnosis Comments XR TRANSFER OF OUTSIDE FILMS Routine 02/10/2019 12:35 PM CDT Diagnosis unknown documented in this encounter Results * XR Outside Reference (02/10/2019 12:35 PM CDT) Impressions [facility] - 02/10/2019 12:35 PM CDT These images are for Reference purposes only and have not been reviewed by [facility]. ??There will be no report generated by a [facility] Radiologist. Narrative [facility] - 02/10/2019 12:35 PM CDT EXAMINATION: ??Images For Reference Purposes Only Darrin Bryant MD IMG XR PROCEDURES Giselle l Result [facility] documented in this encounter Visit Diagnoses Not on filedocumented in this encounter Care Teams Disposal Plant Operator Relationship Specialty Start Date End Date Kaleb Gutierrez MD [address] [place] [address] PCP - General 02/25/16 documented as of this encounter
--- OUTSIDE RECORDS SUMMARY | 2024-07-29 00:41 | XMS_ITS | Encounter Summary ---
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 [address] [place] [address] PCP - General 02/25/16 documented as of this encounter
--- OUTSIDE RECORDS SUMMARY | 2024-07-29 00:41 | XMS_ITS | Encounter Summary ---
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 Gender Identity Not on file Sexual Orientation Not on file documented as of this encounter Ordered Prescriptions Prescription Sig Dispense Quantity Refills Last Filled Start Date End Date scopolamine 1 mg over 3 days patch 3 dayIndications:Pre vention of Post-Operative Nausea and Vomiting Place 1 patch on the skin once for [address] patch behind right ear the evening before surgery 1 patch 02/25/2019 9 documented in this encounter Plan of Treatment Not on file documented as of this encounter Visit Diagnoses Not on filedocumented in this encounter Care Teams Financial Operations Analyst Relationship Specialty Start Date End Date Kaleb Gutierrez MD [address] [facility] [address] [place] [address] PCP - General 02/25/16 documented as of this encounter
--- OUTSIDE RECORDS SUMMARY | 2024-07-29 00:41 | XMS_ITS | Encounter Summary ---
Author Organization [facility] Healthcare Address [address] [place] [address] Care Team Providers Care Boom Storage Name Role Phone Kaleb Gutierrez MD Primary Care Provider Encounter Details Date Type Department Care Team (Latest Contact Info) Description 02/10/2019 12:35 PM CDT - 02/10/2019 11:59 PM CDT Hospital Encounter [facility] [address] [place] [address] Discharge Disposition: Discharge to home or self care Social History Tobacco Use Types Packs/Day Years Used Date Smoking Tobacco: Never Assessed Comments Unknown Sex and Gender Information Value Date Recorded Sex Assigned at Not on file 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 ??There will be no report generated by a [facility] Radiologist. Narrative [facility] - 02/10/2019 12:35 PM CDT EXAMINATION: ??Images For Reference Purposes Only Darrin Bryant MD IMG XR PROCEDURES Giselle l Result [facility] documented in this encounter Visit Diagnoses Not on filedocumented in this encounter Care Teams Boom Storage Relationship Specialty Start Date End Date Kaleb Gutierrez MD [address] [place] [address] PCP - General 02/25/16 documented as of this encounter
--- OUTSIDE RECORDS SUMMARY | 2024-07-29 00:41 | XMS_ITS | Encounter Summary ---
Author Organization [facility] Healthcare Address [address] [place] [address] Care Team Providers Care Criminal Researcher Name Role Phone Kaleb Gutierrez MD Primary Care Provider Encounter Details Date Type Department Care Team (Latest Contact Info) Description 02/10/2019 12:34 PM CDT Hospital Encounter [facility] [address] [place] [address] Discharge Disposition: Discharge to home or self care Social History Tobacco Use Types Packs/Day Years Used Date Smoking Tobacco: Never Assessed Comments Unknown Sex and Gender Information Value Date Recorded Sex Assigned at Not on file 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 ??There will be no report generated by a [facility] Radiologist. Narrative [facility] - 02/10/2019 12:34 PM CDT EXAMINATION: ??Images For Reference Purposes Only Darrin Bryant MD IMG CT PROCEDURES Giselle l Result [facility] documented in this encounter Visit Diagnoses Not on filedocumented in this encounter Care Teams Criminal Researcher Relationship Specialty Start Date End Date Kaleb Gutierrez MD [address] [place] [address] PCP - General 02/25/16 documented as of this encounter
--- OUTSIDE RECORDS SUMMARY | 2024-07-29 00:44 | XMS_ITS | Continuity of Care Document ---
Author Organization [facility] Address [address] [place] [address] [facility] [address] [place] [address] Phone Care Team Providers Care Juice Mixer Name Role Phone Reggie Finnegan Unavailable Unavailable Procedures Procedure Date Office/outpatient Visit, [facility] Advance Directives Directive Yes / No Effective Date File Name No Information Encounters Encounter Description Practice Location Reason(s) For Visit Diagnoses Date Provider Providers Copied on Encounter Office/outpa tient Visit, [facility], [address], [place], [place], [id number], tel:[phone] [facility] Professional No Information Sep-0 9-200 [address]. [address] [facility] [address], [place], [address], [place]. tel:[phone] Family History Family Member Type Diagnosis Age At Onset No Information Payers Payer name Insurance type Covered libertarian ID Authoriza tion(s) No Information Social History [...]
== END 2024-07-22 09:43 | disposition home or self-care (01) ==
PROVIDERS: PCP Nurse Practitioner Family; Visit Provider Internal Medicine Gastroenterology
PROC: 0DJD8ZZ Inspection of Lower Intestinal Tract, Via Natural or Artificial Opening Endoscopic (ICD-10-PCS; CPT 45378; principal; 2024-07-22 08:30)
DX: Z12.11 Encounter for screening for malignant neoplasm of colon (principal); K57.30 Diverticulosis of large intestine without perforation or abscess without bleeding; K52.832 Lymphocytic colitis; D64.9 Anemia, unspecified; G47.33 Obstructive sleep apnea (adult) (pediatric); I10 Essential (primary) hypertension; G61.0 Guillain-Barre syndrome; G47.39 Other sleep apnea; G89.29 Other chronic pain; M25.569 Pain in unspecified knee; E22.9 Hyperfunction of pituitary gland, unspecified; E66.9 Obesity, unspecified; Z68.34 Body mass index [BMI] 34.0-34.9, adult; Z98.890 Other specified postprocedural states; Z86.0100 Personal history of colon polyps, unspecified; Z80.1 Family history of malignant neoplasm of trachea, bronchus and lung; Z80.8 Family history of malignant neoplasm of other organs or systems; Z80.3 Family history of malignant neoplasm of breast
CPT/HCPCS: 45380; 88305; J2003; J2704; J7120

== ENCOUNTER 2024-09-20 10:43 | Outpatient (CLI) | payer OTHER, SELFPAY ==
--- NOTE | ~2024-09-20 | XR_ITS ---
Cervical Spine: AP, lateral, open-mouth views Clinical History: Pain Findings: The normal lordotic curve is maintained. No fracture seen. There is minimal grade 1 anterol isthesis of C4 over C5. There is moderate to advanced degree of disc narrowing at C5-C6 and C6-C7. Th ere is moderate to advanced facet arthropathy throughout the cervical spine. Pre-vertebral soft tissu es are unremarkable. Impression: Moderate to advanced spondylosis, as detailed above. Reviewed, dictated and finalized at location M. Impression: Moderate to advanced spondylosis, as detailed above.
--- OUTSIDE RECORDS SUMMARY | 2024-09-20 10:46 | XMS_ITS | Clinical Summary ---
Author Organization [facility] Address [address] [place] [address] Care Team Providers Care Dye Machine Tender Name Role Phone Vladimir Aquino Elissa DPM Unavailable [phone] Kaleb Gutierrez MD Primary Care Provider [...] 72 05/04/2016 2:07 PM CDT Temperature 36.3 C (97.4 F) 05/04/2016 2:07 PM CDT Respiratory Rate 20 05/04/2016 2:07 PM CDT [...] Influenza Immunization (#1) 2024 SARS-COV-2 Immunization ( season) 2024 Respiratory Syncytial Virus (RSV) Immunization [...] patient's age to complete this topic Insurance [employer] [facility] OAP Care Teams Dye Machine Tender Relationship Specialty Start Date End Date Kaleb Gutierrez MD [address] [place] [address] PCP - General Family Medicine 02/21/16 Vladimir Aquino DPM Podiatry 02/21/16
--- OUTSIDE RECORDS SUMMARY | 2024-09-20 10:46 | XMS_ITS | Continuity of Care Document ---
Author Organization [facility] Address [address] [place] [address] [facility] [address] [place] [address] Phone Care Team Providers Care Venereal Disease Control Head Name Role Phone Reggie Finnegan Unavailable Unavailable Procedures Procedure Date Office/outpatient Visit, [facility] Advance Directives Directive Yes / No Effective Date File Name No Information Encounters Encounter Description Practice Location Reason(s) For Visit Diagnoses Date Provider Providers Copied on Encounter Office/outpa tient Visit, [facility], [address], [place], [place], [id number], tel:[phone] [facility] Professional No Information Sep-0 9-200 [address]ared[address]. [address] [facility] [address], [place], [address], [place]. tel:[phone] Family History Family Member Type Diagnosis Age [...]
--- OUTSIDE RECORDS SUMMARY | 2024-09-20 10:46 | XMS_ITS | Referral Summary ---
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 Gender Identity Not on file Sexual Orientation Not on file Last Filed Vital Signs Vital Sign Reading Time Taken Comments Blood Pressure 148/87 02/27/2019 11:25 AM CDT Pulse 65 02/27/2019 11:35 AM CDT Temperature 36.3 C (97.3 F) 02/27/2019 10:12 AM CDT Respiratory Rate 16 02/27/2019 11:35 AM CDT Oxygen Saturation 95% 02/27/2019 11:35 AM CDT Inhaled Oxygen Concentration - - Weight 95 kg (209 lb 8 oz) 02/27/2019 6:46 AM CD T Height 160 cm (5' 3 ) 02/27/2019 6:46 AM CDT Body Mass Index 37.11 02/27/2019 6:46 AM CDT Plan of Treatment Not on file Medical Devices Implanted Type Area Steam Plant Control Room Operator Device Identifier Shelf Expiration Date Model / Serial / Lot [employer] Ar-1927bct Corkscrew Suturetape 5.5mm 14.7mm Bioabsorbable Full Thread 1.3mm - [id number] Implanted:Qty: 1 on 02/27/2019 by Darrin Bryant MD at [facility] [place] Left: Shoulder [employer] 11/05/2020 AR-1927BCT / / [id number] [employer] Ar-1927bct Corkscrew Suturetape 5.5mm 14.7mm Bioabsorbable Full Thread 1.3mm - [id number] Implanted:Qty: 1 on 02/27/2019 by Darrin Bryant MD at [facility] [place] Left: Shoulder [employer] 11/05/2020 AR-1927BCT / / [id number] [employer] Ar-1927bct Corkscrew Suturetape 5.5mm 14.7mm Bioabsorbable Full Thread 1.3mm - [id number] Implanted:Qty: 1 on 02/27/2019 by Darrin Bryant MD at [facility] Left: Shoulder [employer] 11/05/2020 AR-1927BCT / / [id number] [employer] Ar-2324 Bcm Swivelock 4.75mm 24.5mm Self Punch Vent Shoulder [place] Suture - [id number] Implanted:Qty: 1 on 02/27/2019 by Darrin Bryant MD at [facility] Left: Shoulder [employer] 08/08/2020 AR-2324BCM / / [id number] [employer] Ar-2324 Bcm Swivelock 4.75mm 24.5mm Self Punch Vent Shoulder [place] Suture - [id number] Implanted:Qty: 1 on 02/27/2019 by Darrin Bryant MD at [facility] Left: Shoulder [employer] 11/05/2020 AR-2324BCM / / [id number] Insurance [id number] [place] [address] [facility] Care Teams Learning Developer Relationship Specialty Start Date End Date Kaleb Gutierrez MD [address] [facility] [address] [place] [address] PCP - General 02/25/16
--- OUTSIDE RECORDS SUMMARY | 2024-09-20 10:46 | XMS_ITS | Clinical Summary ---
Author Organization [facility] Address [address] [place] [address] Care Team Providers Care Concrete Swimming Pool Installer Name Role Phone Kaleb Gutierrez MD Primary [...] (02/10/2019): Added automatically from request for surgery [id number] Traumatic complete tear of left rotator cuff 11/2018 Overview (02/10/2019): Added automatically from request for surgery [id number] Surgical History Surgery Date Site/Laterality Comments SHOULDER ARTHROSCOPY 07/09/2006 - 07/08/2007 Right rotator cuff repair FOOT SURGERY 07/09/2016 - 07/08/2017 Right HYSTERECTOMY 07/09/2012 - 07/08/2013 partial Medical History Medical History Date Comments Hypertension takes lisinopril , HCTZ 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 ain-[place] after a flu shot in her 30s [...] on file 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 Gender Identity Not on file Sexual Orientation [...] on file Medical Devices Implanted Type Area Radiation Oncology Manager Device Identifier Shelf Expiration Date Model / Serial / Lot Ar[employer]rex Inc Ar-1927bct Corkscrew Suturetape 5.5mm 14.7mm Bioabsorbable Full Thread 1.3mm - [id number] Implanted:Qty: 1 on 02/27/2019 by Darrin Bryant MD at [facility] [place] Left: Shoulder [employer] 11/05/2020 AR-1927BCT / / [id number] Ar[employer] Ar-1927bct Corkscrew Suturetape 5.5mm 14.7mm Bioabsorbable Full Thread 1.3mm - [id number] Implanted:Qty: 1 on 02/27/2019 by Darrin Bryant MD at [facility] [place] Left: Shoulder [employer] 11/05/2020 AR-1927BCT / / [id number] [employer] Ar-1927bct Corkscrew Suturetape 5.5mm 14.7mm Bioabsorbable Full Thread 1.3mm - [id number] Implanted:Qty: 1 on 02/27/2019 by Darrin Bryant MD at [facility] [place] Left: Shoulder [employer] 11/05/2020 AR-1927BCT / / [id number] Ar[employer] Ar-2324 Bcm Swivelock 4.75mm 24.5mm Self Punch Vent Shoulder [place] Suture - [id number] Implanted:Qty: 1 on 02/27/2019 by Darrin Bryant MD at [facility] [place] Left: Shoulder [employer] 08/08/2020 AR-2324BCM / / [id number] [employer] Ar-2324 Bcm Swivelock 4.75mm 24.5mm Self Punch Vent Shoulder [place] Suture - [id number] Implanted:Qty: 1 on 02/27/2019 by Darrin Bryant MD at [facility] [place] Left: Shoulder [employer] 11/05/2020 AR-2324BCM / / [id number] Insurance [employer] [facility] [employer] [facility] Care Teams Concrete Swimming Pool Installer Relationship Specialty Start Date End Date Kaleb Gutierrez MD [address] [facility] 120 [place], [place] [id number] PCP - General 02/25/16
--- OUTSIDE RECORDS SUMMARY | 2024-09-20 10:46 | XMS_ITS ---
Author Organization Unknown Medications Medication Instructions Effective Dates (start - stop) Status - - Compl eted hydrochlorothiazide 12.5 MG / lisinopril 10 MG Oral Tablet - Complete d hydrochlorothiazide 12.5 MG / lisinopril 10 MG Oral Tablet - Complete d meloxicam 7.5 MG Oral Tablet [id number] 0:00:00Z - Completed amoxicillin 500 MG Oral [...] - Completed meloxicam 7.5 MG Oral Tablet [id number] 0:00:00Z - Completed gabapentin 300 MG Oral [...] - Completed meloxicam 7.5 MG Oral Tablet [id number] 0:00:00Z - Completed gabapentin 300 MG Oral Capsule 2023-03-20 T00:00:00Z - Completed acetaminophen 325 MG / hydro codone bitartrate 5 MG Oral Tablet - Completed meloxicam 7.5 MG Oral Tablet [id number] 0:00:00Z - Completed Patient Care team information Name Category Status Period Participants - - Proposed period not known -
== END 2024-09-20 10:44 | disposition home or self-care (01) ==
PROVIDERS: PCP Nurse Practitioner Family; Visit Provider Nurse Practitioner Family
DX: M47.812 Spondylosis without myelopathy or radiculopathy, cervical region (principal); M53.82 Other specified dorsopathies, cervical region
CPT/HCPCS: 72040

== ENCOUNTER 2024-09-27 08:37 | Outpatient (CLI) | payer OTHER, SELFPAY ==
--- NOTE | ~2024-09-27 | XR_ITS ---
XR knee RT min 4V 09/27/2024 08:55 Indication: Right knee pain Procedure: 4 views right knee Comparison: 01/08/2018 Findings: There is severe tricompartment osteoarthritis. Small joint effusion. No fracture or traumat ic malalignment. No foreign bodies. Impression: 1: Severe tricompartment osteoarthritis of the right knee. Reviewed, dictated and finalized at location B. Impression: 1: Severe tricompartment osteoarthritis of the right knee.
--- OUTSIDE RECORDS SUMMARY | 2024-09-27 08:40 | XMS_ITS | Continuity of Care Document ---
Author Organization [facility] Address [address] [place] [address] [facility] 150 [place] [address] Phone Care Team Providers Care Take Up Operator Name Role Phone Reggie Finnegan Unavailable Unavailable Procedures Procedure Date Office/outpatient Visit, [facility] Advance Directives Directive Yes / No Effective Date File Name No Information Encounters Encounter Description Practice Location Reason(s) For Visit Diagnoses Date Provider Providers Copied on Encounter Office/outpa tient Visit, [facility], [address], [place], [place], [id number], tel:[phone] [facility] Professional No Information Sep-0 9-200 9 Kain Paredes. [address] [facility] [address], [address], [place]. tel:[phone] Family History Family Member Type Diagnosis Age At Onset No Information Payers Payer name Insurance type Covered democrat ID Authoriza tion(s) No Information Social History [...]
--- OUTSIDE RECORDS SUMMARY | 2024-09-27 08:40 | XMS_ITS ---
Author Organization Unknown Medications Medication Instructions Effective Dates (start - stop) Status - - Compl eted hydrochlorothiazide 12.5 MG / lisinopril 10 MG Oral Tablet - Complete d hydrochlorothiazide 12.5 MG / lisinopril 10 MG Oral Tablet - Complete d meloxicam 7.5 MG Oral Tablet [id number] 0:00:00Z - Completed amoxicillin 500 MG Oral [...] - Completed meloxicam 7.5 MG Oral Tablet [id number] 0:00:00Z - Completed gabapentin 300 MG Oral [...] - Completed meloxicam 7.5 MG Oral Tablet [id number] 0:00:00Z - Completed gabapentin 300 MG Oral Capsule 2023-03-20 T00:00:00Z - Completed acetaminophen 325 MG / hydro codone bitartrate 5 MG Oral Tablet - Completed meloxicam 7.5 MG Oral Tablet [id number] 0:00:00Z - Completed Patient Care team information Name Category Status Period Participants - - Proposed period not known -
--- OUTSIDE RECORDS SUMMARY | 2024-09-27 08:40 | XMS_ITS | Referral Summary ---
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 [place] Left: Shoulder [employer] 11/05/2020 AR-1927BCT / / [id number] [employer] Ar-1927bct Corkscrew Suturetape 5.5mm 14.7mm Bioabsorbable Full Thread 1.3mm - [id number] Implanted:Qty: 1 on 02/27/2019 by Darrin Bryant MD at [facility] [place] Left: Shoulder [employer] 11/05/2020 AR-1927BCT / / [id number] [employer] Ar-1927bct Corkscrew Suturetape 5.5mm 14.7mm Bioabsorbable Full Thread 1.3mm - [id number] Implanted:Qty: 1 on 02/27/2019 by Darrin Bryant MD at [facility] Left: Shoulder [employer] 11/05/2020 AR-1927BCT / / [id number] [employer] Ar-2324 Bcm Swivelock 4.75mm 24.5mm Self Punch Vent Shoulder [place] Suture - [id number] Implanted:Qty: 1 on 02/27/2019 by Darrin Bryant MD at [facility] Left: Shoulder [employer] 08/08/2020 AR-2324BCM / / [id number] [employer] Ar-2324 Bcm Swivelock 4.75mm 24.5mm Self Punch Vent Shoulder [place] Suture - [id number] Implanted:Qty: 1 on 02/27/2019 by Darrin Bryant MD at [facility] Left: Shoulder [employer] 11/05/2020 AR-2324BCM / / [id number] Insurance [id number] [place] [address] [facility] Care Teams Last Putter Away Relationship Specialty Start Date End Date Kaleb Gutierrez MD [address] [facility] 120 [place] [address] PCP - General 02/25/16
--- OUTSIDE RECORDS SUMMARY | 2024-09-27 08:40 | XMS_ITS | Clinical Summary ---
Author Organization [facility] Address [address] [place] [address] Care Team Providers Care Marketing Finance Specialist Name Role Phone Vladimir Aquino Elissa DPM Unavailable [phone] Kaleb Gutierrez MD Primary Care Provider [...] patient's age to complete this topic Insurance [employer] [facility] OAP Care Teams Marketing Finance Specialist Relationship Specialty Start Date End Date Kaleb Gutierrez MD [address] [place] [address] PCP - General Family Medicine 02/21/16 Vladimir Aquino DPM Podiatry 02/21/16
--- OUTSIDE RECORDS SUMMARY | 2024-09-27 08:40 | XMS_ITS | Clinical Summary ---
Author Organization [facility] Address [address] [place] [address] Care Team Providers Care Inside Sales Manager Name Role Phone Kaleb Gutierrez MD Primary [...] (02/10/2019): Added automatically from request for surgery [id number] Traumatic complete tear of left rotator cuff 11/2018 Overview (02/10/2019): Added automatically from request for surgery [id number] Surgical History Surgery Date Site/Laterality Comments SHOULDER ARTHROSCOPY 07/09/2006 - 07/08/2007 Right rotator cuff repair FOOT SURGERY 07/09/2016 - 07/08/2017 Right HYSTERECTOMY 07/09/2012 - 07/08/2013 partial Medical History Medical History Date Comments Hypertension takes lisinopril , HCTZ 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-[place] after a flu shot in her 30s [...] on file 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 Gender Identity Not on file Sexual [...] on file Medical Devices Implanted Type Area Blockers Skiver Device Identifier Shelf Expiration Date Model / Serial / Lot Ar[employer] Inc Ar-1927bct Corkscrew Suturetape 5.5mm 14.7mm Bioabsorbable Full Thread 1.3mm - [id number] Implanted:Qty: 1 on 02/27/2019 by Darrin Bryant MD at [facility] [place] Left: Shoulder [employer] 11/05/2020 AR-1927BCT / / [id number] [employer] Ar-1927bct Corkscrew Suturetape 5.5mm 14.7mm Bioabsorbable Full Thread 1.3mm - [id number] Implanted:Qty: 1 on 02/27/2019 by Darrin Bryant MD at [facility] [place] Left: Shoulder [employer] 11/05/2020 AR-1927BCT / / [id number] [employer] Ar-1927bct Corkscrew Suturetape 5.5mm 14.7mm Bioabsorbable Full Thread 1.3mm - [id number] Implanted:Qty: 1 on 02/27/2019 by Darrin Bryant MD at [facility] [place] Left: Shoulder [employer] 11/05/2020 AR-1927BCT / / [id number] [employer] Ar-2324 Bcm Swivelock 4.75mm 24.5mm Self Punch Vent Shoulder [place] Suture - [id number] Implanted:Qty: 1 on 02/27/2019 by Darrin Bryant MD at [facility] [place] Left: Shoulder [employer] 08/08/2020 AR-2324BCM / / [id number] Ar[employer] Ar-2324 Bcm Swivelock 4.75mm 24.5mm Self Punch Vent Shoulder [place] Suture - [id number] Implanted:Qty: 1 on 02/27/2019 by Darrin Bryant MD at [facility] [place] Left: Shoulder [employer] 11/05/2020 AR-2324BCM / / [id number] Insurance [employer] [facility] [employer] [facility] Care Teams Inside Sales Manager Relationship Specialty Start Date End Date Kaleb Gutierrez MD [address] [facility] 120 [place], [place] [phone] PCP - General 02/25/16
== END 2024-09-27 08:38 | disposition home or self-care (01) ==
PROVIDERS: PCP Nurse Practitioner Family; Visit Provider Orthopaedic Surgery
DX: M25.561 Pain in right knee (principal); M17.11 Unilateral primary osteoarthritis, right knee
CPT/HCPCS: 73564

== ENCOUNTER 2024-10-02 14:26 | Outpatient (CLI) | payer OTHER, SELFPAY ==
--- NOTE | ~2024-10-02 | MM_ITS ---
EXAMINATION: MM screening [facility] BI w chente HISTORY: Screening TECHNIQUE: Craniocaudal and mediolateral oblique 3-D tomosynthesis images were obtained and synthetic 2-D images were generated. CAD analysis was submitted and interpreted. COMPARISON: 08/06/2023 and dating back to 02/04/2020 BREAST PARENCHYMAL COMPOSITION: There are scattered areas of fibroglandular density. FINDINGS: Punctate calcifications are detected bilaterally, stable and benign in appearance. Two subcentimeter intramammary lymph nodes within the upper outer quadrant of the right breast, stabl e from prior. Stable parenchymal pattern without suspicious microcalcifications, architectural distortion, discrete masses or significant asymmetry. IMPRESSION: 1. No mammographic evidence of malignancy. 2. Recommend routine screening mammography in one year. BI-RADS Category 2: Benign finding(s). Reviewed, dictated and finalized at location A.
== END 2024-10-02 14:27 | disposition home or self-care (01) ==
LOC: MICIMG 14:28
PROVIDERS: PCP Obstetrics & Gynecology; Visit Provider Obstetrics & Gynecology
DX: Z12.31 Encounter for screening mammogram for malignant neoplasm of breast (principal)
CPT/HCPCS: 77063; 77067

== ENCOUNTER 2024-10-11 09:32 | Outpatient (CLI) | payer OTHER, SELFPAY ==
--- OUTSIDE RECORDS SUMMARY | 2024-10-11 09:35 | XMS_ITS | Referral Summary ---
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 Gender Identity Not on file Sexual Orientation [...] on file Medical Devices Implanted Type Area Clinical Documentation Nurse Device Identifier Shelf Expiration Date Model / Serial / Lot Ar[employer] Ar-1927bct Corkscrew Suturetape 5.5mm 14.7mm Bioabsorbable Full Thread 1.3mm - [id number] Implanted:Qty: 1 on 02/27/2019 by Darrin Bryant MD at [facility] [place] Left: Shoulder [employer] 11/05/2020 AR-1927BCT / / [id number] [employer] Ar-1927bct Corkscrew Suturetape 5.5mm 14.7mm Bioabsorbable Full Thread 1.3mm - [id number] Implanted:Qty: 1 on 02/27/2019 by Darrin Bryant MD at [facility] [place] Left: Shoulder [employer] 11/05/2020 AR-1927BCT / / [id number] [employer] Ar-1927bct Corkscrew Suturetape 5.5mm 14.7mm Bioabsorbable Full Thread 1.3mm - [id number] Implanted:Qty: 1 on 02/27/2019 by Darrin Bryant MD at [facility] Left: Shoulder [employer] 11/05/2020 AR-1927BCT / / [id number] [employer] Ar-2324 Bcm Swivelock 4.75mm 24.5mm Self Punch Vent Shoulder [place] Suture - [id number] Implanted:Qty: 1 on 02/27/2019 by Darrin Bryant MD at [facility] Left: Shoulder [employer] 08/08/2020 AR-2324BCM / / [id number] Ar[employer] Inc Ar-2324 Bcm [place]ivel[place] 4.75mm 24.5mm Self Punch Vent Shoulder [place] Suture - [id number] Implanted:Qty: 1 on 02/27/2019 by Darrin Bryant MD at [facility] Left: Shoulder [employer] 11/05/2020 AR-2324BCM / / [id number] Insurance [id number] [place] [address] [facility] Care Teams Route Delivery Manager Relationship Specialty Start Date End Date Kaleb Gutierrez MD [address] [facility] 120 [place] [address] PCP - General 02/25/16
--- OUTSIDE RECORDS SUMMARY | 2024-10-11 09:35 | XMS_ITS | Continuity of Care Document ---
Author Organization [facility] Address [address] [place] [address] [facility] 150 [place] [address] Phone Care Team Providers Care Gem Technician Name Role Phone Reggie Finnegan Unavailable Unavailable Procedures Procedure Date Office/outpatient Visit, [facility] Advance Directives Directive Yes / No Effective Date File Name No Information Encounters Encounter Description Practice Location Reason(s) For Visit Diagnoses Date Provider Providers Copied on Encounter Office/outpa tient Visit, [facility], [address], [place], [place], [address], tel:[phone] [facility] Professional No Information Sep-0 9-200 9 Kain Paredes. [address] [facility] [address], [place], [address], [place]. tel:[phone] Family History Family Member Type Diagnosis Age [...]
--- OUTSIDE RECORDS SUMMARY | 2024-10-11 09:35 | XMS_ITS | Clinical Summary ---
Author Organization [facility] Address [address] [place] [address] Care Team Providers Care Registered Public Health Nurse Name Role Phone Vladimir Aquino Elissa DPM Unavailable [phone] Kaleb Gutierrez MD Primary Care Provider [...] patient's age to complete this topic Insurance [employer] [facility] OAP Care Teams Registered Public Health Nurse Relationship Specialty Start Date End Date Kaleb Gutierrez MD [address] [place] [address] PCP - General Family Medicine 02/21/16 Vladimir Aquino DPM Podiatry 02/21/16
--- OUTSIDE RECORDS SUMMARY | 2024-10-11 09:35 | XMS_ITS ---
Author Organization Unknown Medications Medication Instructions Effective Dates (start - stop) Status - - Compl eted hydrochlorothiazide 12.5 MG / lisinopril 10 MG Oral Tablet - Complete d hydrochlorothiazide 12.5 MG / lisinopril 10 MG Oral Tablet - Complete d meloxicam 7.5 MG Oral Tablet [id number] 0:00:00Z - Completed amoxicillin 500 MG Oral [...] - Completed meloxicam 7.5 MG Oral Tablet [id number] 0:00:00Z - Completed gabapentin 300 MG Oral [...] - Completed meloxicam 7.5 MG Oral Tablet [id number] 0:00:00Z - Completed gabapentin 300 MG Oral Capsule 2023-03-20 T00:00:00Z - Completed acetaminophen 325 MG / hydro codone bitartrate 5 MG Oral Tablet - Completed meloxicam 7.5 MG Oral Tablet [id number] 0:00:00Z - Completed Patient Care team information Name Category Status Period Participants - - Proposed period not known -
--- OUTSIDE RECORDS SUMMARY | 2024-10-11 09:35 | XMS_ITS | Clinical Summary ---
Author Organization [facility] Address [address] [place] [address] Care Team Providers Care Surface Supervisor Name Role Phone Kaleb Gutierrez MD Primary [...] (02/10/2019): Added automatically from request for surgery [id number] Traumatic complete tear of left rotator cuff 11/2018 Overview (02/10/2019): Added automatically from request for surgery [id number] Surgical History Surgery Date Site/Laterality Comments SHOULDER ARTHROSCOPY 07/09/2006 - 07/08/2007 Right rotator cuff repair FOOT SURGERY 07/09/2016 - 07/08/2017 Right HYSTERECTOMY 07/09/2012 - 07/08/2013 partial Medical History Medical History Date Comments Hypertension takes lisinopril , HCTZ 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 Guill ain-[place] after a flu shot in her 30s [...] on file 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 Gender Identity Not on file Sexual Orientation [...] on file Medical Devices Implanted Type Area Agriculture Internship Device Identifier Shelf Expiration Date Model / Serial / Lot Ar[employer]rex Inc Ar-1927bct Corkscrew Suturetape 5.5mm 14.7mm Bioabsorbable Full Thread 1.3mm - [id number] Implanted:Qty: 1 on 02/27/2019 by Darrin Bryant MD at [facility] [place] Left: Shoulder [employer] 11/05/2020 AR-1927BCT / / [id number] [employer] Ar-1927bct Corkscrew Suturetape 5.5mm 14.7mm Bioabsorbable Full Thread 1.3mm - [id number] Implanted:Qty: 1 on 02/27/2019 by Darrin Bryant MD at [facility] [place] Left: Shoulder [employer] 11/05/2020 AR-1927BCT / / [id number] [employer] Ar-1927bct Corkscrew Suturetape 5.5mm 14.7mm Bioabsorbable Full Thread 1.3mm - [id number] Implanted:Qty: 1 on 02/27/2019 by Darrin Bryant MD at [facility] [place] Left: Shoulder [employer] 11/05/2020 AR-1927BCT / / [id number] [employer] Ar-2324 Bcm [place] 4.75mm 24.5mm Self Punch Vent Shoulder [place] Suture - [id number] Implanted:Qty: 1 on 02/27/2019 by Darrin Bryant MD at [facility] [place] Left: Shoulder [employer] 08/08/2020 AR-2324BCM / / [id number] [employer] Ar-2324 Bcm [place] 4.75mm 24.5mm Self Punch Vent Shoulder [place] Suture - [id number] Implanted:Qty: 1 on 02/27/2019 by Darrin Bryant MD at [facility] [place] Left: Shoulder [employer] 11/05/2020 AR-2324BCM / / [id number] Insurance [employer] [facility] Member Subscriber Plan / Payer (Ef fective 2018-Present) Name:Nancy Chavis Member ID:[id number] Relation to Subscriber:Self Name:Nancy Chavis Subscriber ID:[id number] Payer ID:[id number] Type:[employer] HMO/PPO Address: [address] [address] [employer] [facility] Member Subscriber Plan / Payer (Ef fective 2019-Present) Name:Nancy Chavis Member ID:[id number] Relation to Subscriber:Self Name:Nancy Chavis Subscriber ID:[id number] Payer ID:[id number] Type:[employer] HMO/PPO Address: [place] [id number] [place] [address] Care Teams Surface Supervisor Relationship Specialty Start Date End Date Kaleb Gutierrez MD [address] [facility] 120 [place], [place] [id number] PCP - General 02/25/16
[2024-10-11 09:51] LABS: Hematocrit 35.3 % (37.0-47.0); Hemoglobin 11.6 g/dL (12.0-15.0)
[2024-10-11 10:20] LABS: Albumin Level 4.3 g/dL (3.5-5.1); Estimated Glomerular Filt Rate > 60; Glucose 102 mg/dL (65-110)
[2024-10-11 10:22] LABS: Urine Cotinine NEGATIVE
[2024-10-11 10:23] LABS: Hemoglobin A1C 5.7 % (<5.7)
== END 2024-10-11 09:33 | disposition home or self-care (01) ==
LOC: ANHLAB 09:33
PROVIDERS: PCP Nurse Practitioner Family; Visit Provider Orthopaedic Surgery
DX: R73.02 Impaired glucose tolerance (oral) (principal); Z79.899 Other long term (current) drug therapy; M17.11 Unilateral primary osteoarthritis, right knee; E55.9 Vitamin D deficiency, unspecified
CPT/HCPCS: 80307; 82040; 82565; 82947; 83036; 85014; 85018

== ENCOUNTER 2024-10-18 09:36 | Outpatient (CLI) | payer OTHER, SELFPAY ==
--- OUTSIDE RECORDS SUMMARY | 2024-10-18 09:38 | XMS_ITS | Continuity of Care Document ---
Author Organization [facility] Address [address] [place] [address] [facility] [address] [place] [address] Phone Care Team Providers Care Percolator Operator Name Role Phone Reggie Finnegan Unavailable Unavailable Procedures Procedure Date Office/outpatient Visit, [facility] Advance Directives Directive Yes / No Effective Date File Name No Information Encounters Encounter Description Practice Location Reason(s) For Visit Diagnoses Date Provider Providers Copied on Encounter Office/outpa tient Visit, [facility], [address], [place], [place], [address], tel:[phone] [facility] Professional No Information Sep-0 9-200 9 Kain Paredes. [address] [facility] [address], [place], [address], [place]. tel:[phone] Family History Family Member Type Diagnosis Age At Onset No Information Payers Payer name Insurance type Covered republican ID Authoriza tion(s) No Information Social History [...]
--- OUTSIDE RECORDS SUMMARY | 2024-10-18 09:39 | XMS_ITS | Clinical Summary ---
Author Organization [facility] Address [address] [place] [address] Care Team Providers Care Sash Finisher Name Role Phone Vladimir Aquino Elissa DPM Unavailable [phone] Kaleb Gutierrez MD Primary Care Provider [...] patient's age to complete this topic Insurance [employer] [facility] OAP Care Teams Sash Finisher Relationship Specialty Start Date End Date Kaleb Gutierrez MD [address] [place] [address] PCP - General Family Medicine 02/21/16 Vladimir Aquino DPM Podiatry 02/21/16
--- OUTSIDE RECORDS SUMMARY | 2024-10-18 09:39 | XMS_ITS | Referral Summary ---
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 [place] Left: Shoulder [employer] Inc 11/05/2020 AR-1927BCT / / [id number] Ar[employer] Inc Ar-1927bct Corkscrew Suturetape 5.5mm 14.7mm Bioabsorbable Full Thread 1.3mm - [id number] Implanted:Qty: 1 on 02/27/2019 by Darrin Bryant MD at [facility] [place] Left: Shoulder [employer] 11/05/2020 AR-1927BCT / / [id number] Ar[employer] Inc Ar-1927bct Corkscrew Suturetape 5.5mm 14.7mm Bioabsorbable Full Thread 1.3mm - [id number] Implanted:Qty: 1 on 02/27/2019 by Darrin Bryant MD at [facility] Left: Shoulder [employer] 11/05/2020 AR-1927BCT / / [id number] Ar[employer] Inc Ar-2324 Bcm Swivelock 4.75mm 24.5mm Self Punch Vent Shoulder [place] Suture - [id number] Implanted:Qty: 1 on 02/27/2019 by Darrin Bryant MD at [facility] Left: Shoulder [employer] 08/08/2020 AR-2324BCM / / [id number] Ar[employer] Ar-2324 Bcm [place] 4.75mm 24.5mm Self Punch Vent Shoulder [place] Suture - [id number] Implanted:Qty: 1 on 02/27/2019 by Darrin Bryant MD at [facility] Left: Shoulder [employer] 11/05/2020 AR-2324BCM / / [id number] Insurance [id number] [place] [address] FOR[facility]LY [facility] Care Teams Batter Mixer Relationship Specialty Start Date End Date Kaleb Gutierrez MD [address] [facility] [address] [place] [address] PCP - General 02/25/16
--- OUTSIDE RECORDS SUMMARY | 2024-10-18 09:39 | XMS_ITS ---
Author Organization Unknown Medications Medication Instructions Effective Dates (start - stop) Status - - Compl eted hydrochlorothiazide 12.5 MG / lisinopril 10 MG Oral Tablet - Complete d hydrochlorothiazide 12.5 MG / lisinopril 10 MG Oral Tablet - Complete d meloxicam 7.5 MG Oral Tablet [id number] 0:00:00Z - Completed amoxicillin 500 MG Oral [...] - Completed meloxicam 7.5 MG Oral Tablet [id number] 0:00:00Z - Completed gabapentin 300 MG Oral [...] - Completed meloxicam 7.5 MG Oral Tablet [id number] 0:00:00Z - Completed gabapentin 300 MG Oral Capsule 2023-03-20 T00:00:00Z - Completed acetaminophen 325 MG / hydro codone bitartrate 5 MG Oral Tablet - Completed meloxicam 7.5 MG Oral Tablet [id number] 0:00:00Z - Completed Patient Care team information Name Category Status Period Participants - - Proposed period not known -
--- OUTSIDE RECORDS SUMMARY | 2024-10-18 09:39 | XMS_ITS | Clinical Summary ---
Author Organization [facility] Address [address] [place] [address] Care Team Providers Care Seat Installer Name Role Phone Kaleb Gutierrez MD [...] (02/10/2019): Added automatically from request for surgery [id number] Traumatic complete tear of left rotator cuff 11/2018 Overview (02/10/2019): Added automatically from request for surgery [id number] Surgical History Surgery Date Site/Laterality Comments SHOULDER ARTHROSCOPY 07/09/2006 - 07/08/2007 Right rotator cuff repair FOOT SURGERY 07/09/2016 - 07/08/2017 Right HYSTERECTOMY 07/09/2012 - 07/08/2013 partial Medical History Medical History Date Comments Hypertension takes lisinopril , HCTZ 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 ain-Ralph after a flu shot in her 30s [...] on file 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 Gender Identity Not on file Sexual Orientation [...] on file Medical Devices Implanted Type Area Stroboscope Operator Device Identifier Shelf Expiration Date Model / Serial / Lot Ar[employer]rex Inc Ar-1927bct Corkscrew Suturetape 5.5mm 14.7mm Bioabsorbable Full Thread 1.3mm - [id number] Implanted:Qty: 1 on 02/27/2019 by Darrin Bryant MD at [facility] [place] Left: Shoulder [employer] 11/05/2020 AR-1927BCT / / [id number] Ar[employer] Ar-1927bct Corkscrew Suturetape 5.5mm 14.7mm Bioabsorbable Full Thread 1.3mm - [id number] Implanted:Qty: 1 on 02/27/2019 by Darrin Bryant MD at [facility] [place] Left: Shoulder [employer] 11/05/2020 AR-1927BCT / / [id number] [employer] Ar-1927bct Corkscrew Suturetape 5.5mm 14.7mm Bioabsorbable Full Thread 1.3mm - [id number] Implanted:Qty: 1 on 02/27/2019 by Darrin Bryant MD at [facility] [place] Left: Shoulder [employer] 11/05/2020 AR-1927BCT / / [id number] Ar[employer] Ar-2324 Bcm Swivelock 4.75mm 24.5mm Self Punch Vent Shoulder [place] Suture - [id number] Implanted:Qty: 1 on 02/27/2019 by Darrin Bryant MD at [facility] [place] Left: Shoulder [employer] 08/08/2020 AR-2324BCM / / [id number] Ar[employer] Ar-2324 Bcm Swivelock 4.75mm 24.5mm Self Punch Vent Shoulder [place] Suture - [id number] Implanted:Qty: 1 on 02/27/2019 by Darrin Bryant MD at [facility] [place] Left: Shoulder [employer] 11/05/2020 AR-2324BCM / / [id number] Insurance [employer] [facility] [employer] [facility] Care Teams Seat Installer Relationship Specialty Start Date End Date Kaleb Gutierrez MD [address] [facility] 120 [place], [place] [id number] PCP - General 02/25/16
--- NOTE | 2024-10-18 10:00 | ECG_ITS ---
Test Date: 2024-10-18 10:14:29 Measurements Intervals [place] Rate: 59 P: 15 KS: 138 QRS: -4 QRSD: 95 T: 23 QT: 381 QTc: 380 Interpretive Statements SINUS BRADYCARDIA LOW QRS VOLTAGE IN PRECORDIAL LEADS BORDERLINE R WAVE PROGRESSION, ANTERIOR LEADS CONSIDER INFERIOR INFARCT, AGE INDETERMINATE ABNORMAL ECG No previous ECG available for comparison Electronically Signed On 10-18-2024 14:40:58 CDT by Stiven Sol D.O.
== END 2024-10-18 09:37 | disposition home or self-care (01) ==
PROVIDERS: PCP Nurse Practitioner Family; Visit Provider Orthopaedic Surgery
DX: I10 Essential (primary) hypertension (principal); R00.1 Bradycardia, unspecified; R94.31 Abnormal electrocardiogram [ECG] [EKG]
CPT/HCPCS: 93005

== ENCOUNTER 2024-12-24 11:39 | Outpatient (CLI) | payer OTHER, SELFPAY ==
--- NOTE | ~2024-12-24 | XR_ITS ---
Cervical Spine: AP, lateral, open-mouth views Clinical History: Pain Findings: The normal lordotic curve is maintained. There is minimal grade 1 anterolisthesis of C3 ove r C4. There is moderate to advanced degenerative disc narrowing at C4-C5, C5-C6, with moderate degene rative disc narrowing at C6-C7. There is moderate facet arthropathy throughout the cervical spine. No instability evident on flexion or extension.. Pre-vertebral soft tissues are unremarkable. Impression: Moderate degenerative spondylosis overall, as detailed above. No instability evident on flexion or ex tension. Reviewed, dictated and finalized at [facility]. Impression: Moderate degenerative spondylosis overall, as detailed above. No instability ev ident on flexion or extension.
--- OUTSIDE RECORDS SUMMARY | 2024-12-24 13:29 | XMS_ITS | Continuity of Care Document ---
Author Organization [facility] Address [address] [place] [address] [facility] [address] [place] [address] Phone Care Team Providers Care Professional Development Director Name Role Phone Reggie Finnegan Unavailable Unavailable Procedures Procedure Date Office/outpatient Visit, [facility] Advance Directives Directive Yes / No Effective Date File Name No Information Encounters Encounter Description Practice Location Reason(s) For Visit Diagnoses Date Provider Providers Copied on Encounter Office/outpa tient Visit, [facility], [address], [place], [place], [id number], tel:[phone] [facility] Professional No Information Sep-0 9-200 9 Kain Paredes. [address] [facility] [address], [place], [address], [place]. tel:[phone] Family History Family Member Type Diagnosis Age At Onset No Information Payers Payer name Insurance type Covered green party ID Authoriza tion(s) No Information Social [...]
--- OUTSIDE RECORDS SUMMARY | 2024-12-24 13:29 | XMS_ITS | Referral Summary ---
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 Gender Identity Not on file Sexual Orientation [...] AM CD T Height 160 cm (5' 3) 02/27/2019 6:46 AM CDT Body Mass Index 37.11 02/27/2019 6:46 AM CDT Plan of Treatment Not on file Medical Devices Implanted Type Area Ingot Stripper Device Identifier Shelf Expiration Date Model / Serial / Lot Ar[employer]rex Inc Ar-1927bct Corkscrew Suturetape 5.5mm 14.7mm Bioabsorbable Full Thread 1.3mm - [id number] Implanted:Qty: 1 on 02/27/2019 by Darrin Bryant MD at [facility] [place] Left: Shoulder [employer] 11/05/2020 AR-1927BCT / / [id number] [employer] Ar-1927bct Corkscrew Suturetape 5.5mm 14.7mm Bioabsorbable Full Thread 1.3mm - [id number] Implanted:Qty: 1 on 02/27/2019 by Darrin Bryant MD at [facility] [place] Left: Shoulder [employer] 11/05/2020 AR-1927BCT / / [id number] [employer] Ar-1927bct Corkscrew Suturetape 5.5mm 14.7mm Bioabsorbable Full Thread 1.3mm - [id number] Implanted:Qty: 1 on 02/27/2019 by Darrin Bryant MD at [facility] Left: Shoulder [employer] 11/05/2020 AR-1927BCT / / [id number] Ar[employer] Ar-2324 Bcm Swivelock 4.75mm 24.5mm Self Punch Vent Shoulder [place] Suture - [id number] Implanted:Qty: 1 on 02/27/2019 by Darrin Bryant MD at [facility] Left: Shoulder [employer] 08/08/2020 AR-2324BCM / / [id number] Ar[employer] Ar-2324 Bcm Swivelock 4.75mm 24.5mm Self Punch Vent Shoulder [place] Suture - [id number] Implanted:Qty: 1 on 02/27/2019 by Darrin Bryant MD at [facility] Left: Shoulder [employer] 11/05/2020 AR-2324BCM / / [id number] Insurance [id number] [place] [address] [facility] Care Teams Dike Supervisor Relationship Specialty Start Date End Date Kaleb Gutierrez MD [address] [facility] 120 [place] [address] PCP - General 02/25/16
--- OUTSIDE RECORDS SUMMARY | 2024-12-24 13:29 | XMS_ITS | Clinical Summary ---
Author Organization [facility] Address [address] [place] [address] Care Team Providers Care Tablet Making Machine Operator Helper Name Role Phone Kaleb Gutierrez MD Primary [...] (02/10/2019): Added automatically from request for surgery [id number] Traumatic complete tear of left rotator cuff 11/2018 Overview (02/10/2019): Added automatically from request for surgery [id number] Surgical History Surgery Date Site/Laterality Comments SHOULDER ARTHROSCOPY 07/09/2006 - 07/08/2007 Right rotator cuff repair FOOT SURGERY 07/09/2016 - 07/08/2017 Right HYSTERECTOMY 07/09/2012 - 07/08/2013 partial Medical History Medical History Date Comments Hypertension takes lisinopril , HCTZ 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 Patient stated she had Guill ain-Gage after a flu shot in her 30s [...] on file 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 Gender Identity Not on file Sexual Orientation [...] on file Medical Devices Implanted Type Area Commercial Lines Account Executive Device Identifier Shelf Expiration Date Model / Serial / Lot [employer] Inc Ar-1927bct Corkscrew Suturetape 5.5mm 14.7mm Bioabsorbable Full Thread 1.3mm - [id number] Implanted:Qty: 1 on 02/27/2019 by Darrin Bryant MD at [facility] [place] Left: Shoulder [employer] 11/05/2020 AR-1927BCT / / [id number] [employer] Ar-1927bct Corkscrew Suturetape 5.5mm 14.7mm Bioabsorbable Full Thread 1.3mm - [id number] Implanted:Qty: 1 on 02/27/2019 by Darrin Bryant MD at [facility] [place] Left: Shoulder [employer] 11/05/2020 AR-1927BCT / / [id number] [employer] Ar-1927bct Corkscrew Suturetape 5.5mm 14.7mm Bioabsorbable Full Thread 1.3mm - [id number] Implanted:Qty: 1 on 02/27/2019 by Darrin Bryant MD at [facility] [place] Left: Shoulder [employer] 11/05/2020 AR-1927BCT / / [id number] [employer] Ar-2324 Bcm Swivelock 4.75mm 24.5mm Self Punch Vent Shoulder [place] Suture - [id number] Implanted:Qty: 1 on 02/27/2019 by Darrin Bryant MD at [facility] [place] Left: Shoulder [employer] 08/08/2020 AR-2324BCM / / [id number] Ar[employer] Ar-2324 Bcm Swivelock 4.75mm 24.5mm Self Punch Vent Shoulder [place] Suture - [id number] Implanted:Qty: 1 on 02/27/2019 by Darrin Bryant MD at [facility] [place] Left: Shoulder [employer] 11/05/2020 AR-2324BCM / / [id number] Insurance Powered [facility] Powered [facility] Care Teams Tablet Making Machine Operator Helper Relationship Specialty Start Date End Date Kaleb Gutierrez MD [address] [facility] 120 [place], [place] [id number] PCP - General 02/25/16
--- OUTSIDE RECORDS SUMMARY | 2024-12-24 13:29 | XMS_ITS | Clinical Summary ---
Author Organization [facility] Address [address] [place] [address] Care Team Providers Care Spd Tech Name Role Phone Vladimir Aquino Elissa DPM Unavailable [phone] Kaleb Gutierrez MD Primary Care Provider [...] 2:07 PM CDT Height 160 cm (5' 3) 05/04/2016 2:07 PM CDT Body Mass Index [...] patient's age to complete this topic Insurance [employer] [facility] OAP Care Teams Spd Tech Relationship Specialty Start Date End Date Kaleb Gutierrez MD [address] [place] [address] PCP - General Family Medicine 02/21/16 Vladimir Aquino DPM Podiatry 02/21/16
== END 2024-12-24 11:40 | disposition home or self-care (01) ==
PROVIDERS: PCP Nurse Practitioner Family; Visit Provider Nurse Practitioner Adult Health
DX: M47.812 Spondylosis without myelopathy or radiculopathy, cervical region (principal); M54.2 Cervicalgia
CPT/HCPCS: 72052

== ENCOUNTER 2025-01-08 07:28 | Outpatient (CLI) | payer OTHER, SELFPAY ==
--- NOTE | ~2025-01-08 | NM_ITS ---
EXAMINATION: NM justina stress w perfusion DATE: 01/08/2025 10:24 INDICATION: Preoperative examination TECHNIQUE: Rest images were obtained following intravenous administration of 10.3 mCi Tc99m tetrofosm in (Myoview). The patient was infused intravenously with Lexiscan (Regadenoson). Then, 33.6 mCi Tc99m tetrofosmin (Myoview) was administered intravenously, and stress images were obtained. Data was chantale nstructed into short axis and horizontal and vertical long axis SPECT images. Gated SPECT images were also obtained. COMPARISON: None. FINDINGS: There is mild decreased activity along the anterior at the apical anterior, mid anterosepta l, mid anterior and mid anterolateral segments on the post stress imaging which partially reverses on the rest imaging which would be consistent with mixed ischemia and infarct. Review of the original r otating source images however demonstrate clear breast attenuation passing across the anterior wall a nd suspect that this is largely artifact. This can often be ameliorated with prone imaging which was not obtained. There is normal left ventricular chamber size, wall motion and ejection fraction. Lef t ventricular ejection fraction measures >70%. IMPRESSION: 1. Partially reversible mild perfusion defect at the anteroapical and mid anteroseptal, mid anterior and mid anterolateral segments which could be due to mixed infarct and ischemia but which based upon analysis of the rotating source images appears more likely related to breast attenuation artifact. 2. Left ventricular ejection fraction measuring >70%. Reviewed, dictated and finalized at location B. IMPRESSION: 1. Partially reversible mild perfusion defect at the anteroapical and mid anter oseptal, mid anterior and mid anterolateral segments which could be due to mixe d infarct and ischemia but which based upon analysis of the rotating source nidia ges appears more likely related to breast attenuation artifact. 2. Left ventricular ejection fraction measuring >70%.
--- OUTSIDE RECORDS SUMMARY | 2025-01-08 07:34 | XMS_ITS | Clinical Summary ---
Author Organization [facility] Address [address] [place] [address] Care Team Providers Care Manager Employee Relations Name Role Phone Vladimir Aquino Elissa DPM Unavailable [phone] Kaleb Gutierrez MD Primary Care Provider [...] patient's age to complete this topic Insurance [employer] [facility] OAP Care Teams Manager Employee Relations Relationship Specialty Start Date End Date Kaleb Gutierrez MD [address] [place] [address] PCP - General Family Medicine 02/21/16 Vladimir Aquino DPM Podiatry 02/21/16
--- OUTSIDE RECORDS SUMMARY | 2025-01-08 07:34 | XMS_ITS | Clinical Summary ---
Author Organization [facility] Address [address] [place] [address] Care Team Providers Care Water System Operator Name Role Phone Kaleb Gutierrez MD [...] (02/10/2019): Added automatically from request for surgery [id number] Traumatic complete tear of left rotator cuff 11/2018 Overview (02/10/2019): Added automatically from request for surgery [id number] Surgical History Surgery Date Site/Laterality Comments SHOULDER ARTHROSCOPY 07/09/2006 - 07/08/2007 Right rotator cuff repair FOOT SURGERY 07/09/2016 - 07/08/2017 Right HYSTERECTOMY 07/09/2012 - 07/08/2013 partial Medical History Medical History Date Comments Hypertension takes lisinopril , HCTZ 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 Patient stated she had Guill ain-Oxly after a flu shot in her 30s [...] file 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 Gender Identity Not on file Sexual Orientation [...] on file Medical Devices Implanted Type Area Oral Hygienist Device Identifier Shelf Expiration Date Model / Serial / Lot Ar[employer]rex Inc Ar-1927bct Corkscrew Suturetape 5.5mm 14.7mm Bioabsorbable Full Thread 1.3mm - [id number] Implanted:Qty: 1 on 02/27/2019 by Darrin Bryant MD at [facility] [place] Left: Shoulder [employer] Inc 11/05/2020 AR-1927BCT / / [id number] Ar[employer] Ar-1927bct Corkscrew Suturetape 5.5mm 14.7mm Bioabsorbable Full Thread 1.3mm - [id number] Implanted:Qty: 1 on 02/27/2019 by Darrin Bryant MD at [facility] [place] Left: Shoulder [employer] 11/05/2020 AR-1927BCT / / [id number] [employer] Ar-1927bct Corkscrew Suturetape 5.5mm 14.7mm Bioabsorbable Full Thread 1.3mm - [id number] Implanted:Qty: 1 on 02/27/2019 by Darrin Bryant MD at [facility] [place] Left: Shoulder [employer] 11/05/2020 AR-1927BCT / / [id number] Ar[employer] Ar-2324 Bcm Swivelock 4.75mm 24.5mm Self Punch Vent Shoulder [place] Suture - [id number] Implanted:Qty: 1 on 02/27/2019 by Darrin Bryant MD at [facility] [place] Left: Shoulder [employer] 08/08/2020 AR-2324BCM / / [id number] [employer] Ar-2324 Bcm [place]ivelock 4.75mm 24.5mm Self Punch Vent Shoulder [place] Suture - [id number] Implanted:Qty: 1 on 02/27/2019 by Darrin Bryant MD at [facility] [place] Left: Shoulder [employer] 11/05/2020 AR-2324BCM / / [id number] Insurance pushd [facility] pushd [facility] Care Teams Water System Operator Relationship Specialty Start Date End Date Kaleb Gutierrez MD [address] [facility] [address] [place], [place] [id number] PCP - General 02/25/16
--- OUTSIDE RECORDS SUMMARY | 2025-01-08 07:34 | XMS_ITS | Continuity of Care Document ---
Author Organization [facility] Address [address] [place] [address] [facility] [address] [place] [address] Phone Care Team Providers Care Hand Candy Dipper Name Role Phone Reggie Finnegan Unavailable Unavailable Procedures Procedure Date Office/outpatient Visit, [facility] Advance Directives Directive Yes / No Effective Date File Name No Information Encounters Encounter Description Practice Location Reason(s) For Visit Diagnoses Date Provider Providers Copied on Encounter Office/outpa tient Visit, [facility], [address], [place], [place], [id number], tel:[phone] [facility] Professional No Information Sep-0 9-200 9 Kain Paredes. [address] [facility] [address], [place], [address], [place]. tel:[phone] Family History Family Member Type Diagnosis Age [...]
--- OUTSIDE RECORDS SUMMARY | 2025-01-08 07:34 | XMS_ITS ---
Author Organization Unknown Medications Medication Instructions Effective Dates (start - stop) Status - - Compl eted hydrochlorothiazide 12.5 MG / lisinopril 10 MG Oral Tablet - Complete d hydrochlorothiazide 12.5 MG / lisinopril 10 MG Oral Tablet - Complete d meloxicam 7.5 MG Oral Tablet [id number] 0:00:00Z - Completed amoxicillin 500 MG Oral [...] - Completed meloxicam 7.5 MG Oral Tablet [id number] 0:00:00Z - Completed gabapentin 300 MG Oral [...] - Completed meloxicam 7.5 MG Oral Tablet [id number] 0:00:00Z - Completed gabapentin 300 MG Oral Capsule 2023-03-20 T00:00:00Z - Completed acetaminophen 325 MG / hydro codone bitartrate 5 MG Oral Tablet - Completed meloxicam 7.5 MG Oral Tablet [id number] 0:00:00Z - Completed Patient Care team information Name Category Status Period Participants - - Proposed period not known -
--- OUTSIDE RECORDS SUMMARY | 2025-01-08 07:34 | XMS_ITS | Referral Summary ---
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 Gender Identity Not on file Sexual Orientation [...] on file Medical Devices Implanted Type Area Order Detailer Device Identifier Shelf Expiration Date Model / Serial / Lot Ar[employer]rex Inc Ar-1927bct Corkscrew Suturetape 5.5mm 14.7mm Bioabsorbable Full Thread 1.3mm - [id number] Implanted:Qty: 1 on 02/27/2019 by Darrin Bryant MD at [facility] [place] Left: Shoulder [employer] 11/05/2020 AR-1927BCT / / [id number] [employer] Ar-1927bct Corkscrew Suturetape 5.5mm 14.7mm Bioabsorbable Full Thread 1.3mm - [id number] Implanted:Qty: 1 on 02/27/2019 by Darrin Bryant MD at [facility] [place] Left: Shoulder [employer] 11/05/2020 AR-1927BCT / / [id number] [employer] Inc Ar-1927bct Corkscrew Suturetape 5.5mm 14.7mm Bioabsorbable Full Thread 1.3mm - [id number] Implanted:Qty: 1 on 02/27/2019 by Darrin Bryant MD at [facility] Left: Shoulder [employer] 11/05/2020 AR-1927BCT / / [id number] [employer] Ar-2324 Bcm [place]ivelock 4.75mm 24.5mm Self Punch Vent Shoulder [place] Suture - [id number] Implanted:Qty: 1 on 02/27/2019 by Darrin Bryant MD at [facility] Left: Shoulder [employer] 08/08/2020 AR-2324BCM / / [id number] [employer] Inc Ar-2324 Bcm [place] 4.75mm 24.5mm Self Punch Vent Shoulder [place] Suture - [id number] Implanted:Qty: 1 on 02/27/2019 by Darrin Bryant MD at [facility] Left: Shoulder [employer] 11/05/2020 AR-2324BCM / / [id number] Insurance [id number] [place] [address] [facility] Care Teams Integration Specialist Relationship Specialty Start Date End Date Kaleb Gutierrez MD [address] [facility] [address] [place] [address] PCP - General 02/25/16
--- NOTE | 2025-01-08 07:57 | ECHO_ITS ---
Patient Info Name: Nancy Chavis Age: 64 years : 1960 Gender: Female Ht: 63 in Wt: 200 lbs BSA: 2.05 m2 HR: 64 bpm BP: 145 / 101 mmHg Technical Quality: Good Exam Date: 01/08/2025 8:02 AM Patient Status: O Admit Date: 01/08/2025 Exam Type: CA echo doppler color flow Complete two-dimensional, color flow and Doppler transthoracic echocardiogram is performed. Staff Referring Physician: Stiven Sol DO Crutching Contractor: Almita Ross Attending Provider: Stiven Sol DO Summary 1. Complete two-dimensional, color flow and Doppler transthoracic echocardiogram is performed. 2. Left ventricular chamber dimension is normal. 3. Left ventricular systolic function is normal, estimated at 60-65. 4. The left ventricular diastolic function is grade I diastolic dysfunction. 5. E/e' 7 is not elevated. 6. Left atrial chamber dimension is mildly enlarged. 7. There is mild aortic valve sclerosis. 8. There is mild mitral valve regurgitation. 9. There is mild to moderate tricuspid valve regurgitation. 10. No pulmonary hypertension, estimated pulmonary arterial systolic pressure is 26 mmHg. 11. There is trace pulmonic regurgitation. Left Ventricle E/e' 7 is not elevated. Left ventricular chamber dimension is normal. Left ventricular systolic function is normal, estimated at 60-65. The left ventricular diastolic function is grade I diastolic dysfunction. Right Ventricle Right ventricular chamber dimension is normal. Right ventricular systolic function is normal and with normal TAPSE 2.4 cm. Left Atria Left atrial chamber dimension is mildly enlarged. Right Atria Right atrial chamber dimension is normal. Aortic Valve The aortic valve is trileaflet. There is mild aortic valve sclerosis. There is no aortic valve stenosis. There is no aortic valve regurgitation. Pulmonic Valve There is trace pulmonic regurgitation. Mitral Valve There is no mitral valve stenosis. There is mild mitral valve regurgitation. Tricuspid Valve There is mild to moderate tricuspid valve regurgitation. No pulmonary hypertension, estimated pulmonary arterial systolic pressure is 26 mmHg. Pericardium/Pleural There is no pericardial effusion. Inferior Vena Cava Normal inferior vena cava with >50% collapse upon inspiration consistent with normal right atrial pressure, 5 mmHg. Aorta The aortic root size at the sinus of Valsalva is normal. Left Ventricular Outflow Tract Name Value Normal LVOT 2D LVOT Diameter 2.0 cm LVOT Doppler LVOT Peak Velocity 114 cm/s LVOT Peak Gradient 5 mmHg LVOT Mean Gradient 3 mmHg LVOT VTI 25 cm LVOT VTI/AV VTI Ratio 0.8 LVOT Stroke Volume 79 ml LVOT CO 4.6 l/min LVOT CI 2.2 l/min/m2 Pulmonic Valve Name Value Normal PV Doppler PV Peak Velocity 86 cm/s PV Peak Gradient 3 mmHg PV Regurgitation Doppler ME Peak End Diastolic Velocity 81 cm/s Mitral Valve Name Value Normal MV Doppler MV Peak Gradient 3 mmHg MV Mean Gradient 1 mmHg MV Area (Cont Eq VTI) 2.6 cm2 MV Regurgitation Doppler MR Peak Gradient 89 mmHg MV Diastolic Function MV E Peak Velocity 70 cm/s MV A Peak Velocity 86 cm/s MV E/A 0.8 MV Decel Time (PW) 228 ms MV Annular TDI MV E/e' (Septal) 8.1 MV E/e' (Lateral) 7.4 MV E/e' (Average) 7.7 Tricuspid Valve Name Value Normal TV Regurgitation Doppler TR Peak Velocity 229 cm/s TR Peak Gradient 21 mmHg Estimated PAP/RSVP RA Pressure 5 mmHg <=5 PA Systolic Pressure 26 mmHg <36 RV Systolic Pressure 26 mmHg <36 TV Annular TDI TV Lateral Sandi s' Velocity 15.3 cm/s >=9.5 Aortic Valve Name Value Normal AV Doppler AV Peak Velocity 135 cm/s AV Peak Gradient 7 mmHg AV Mean Gradient 4 mmHg AV VTI 33 cm AV Area (Cont Eq VTI) 2.4 cm2 >=3.0 AV Area (Cont Eq Nathaniel) 2.7 cm2 AV DI (Nathaniel) 0.84 AV Regurgitation 2D LVOT Area 3.2 cm2 Ventricles Name Value Normal LV Dimensions 2D/MM IVS Diastolic Thickness (2D) 0.9 cm 0.6-1.0 LVID Diastole (2D) 4.6 cm 3.8-5.2 LVIW Diastolic Thickness (2D) 0.9 cm 0.6-0.9 LVID Systole (2D) 3.2 cm 2.2-3.5 LVOT Diameter 2.0 cm LV Mass (2D Cubed) 143.46 g 67.00-162.00 LV Mass Index (2D Cubed) 70 g/m2 43-95 Relative Wall Thickness (2D) 0.40 <=0.42 LV Fractional Shortening/Ejection Fraction 2D/MM LV Fractional Shortening (2D) 31 % 27-45 LV EF (2D Teichholz) 59 % LV Diastolic Volume (4C MOD) 61 ml LV EF (4C MOD) 62 % LV Diastolic Volume (2C MOD) 58 ml LV EF (2C MOD) 65 % LV Diastolic Volume (BP MOD) 59 ml 46-106 LV Diastolic Volume Index (BP MOD) 29 ml/m2 29-61 LV Systolic Volume (BP MOD) 22 ml 14-42 LV Systolic Volume Index (BP MOD) 11 ml/m2 8-24 LV EF (BP MOD) 62 % 54-74 LV Diastolic Length (4C) 7.3 cm LV Systolic Length (4C) 5.4 cm LV Stroke Volume (4C MOD) 38 ml Atria Name Value Normal LA Dimensions LA Volume (4C A-L) 39 ml LA Volume (BP A-L) 44 ml RA Dimensions RA Systolic Major [place] Length (4C) 4.5 cm 2.2-2.8 RA Area (4C) 14.1 cm2 <=18.0 Report Signatures
--- NOTE | 2025-01-08 08:40 | EST_ITS ---
Patient Info Name: Nancy Chavis Age: 64 years : 1960 Gender: Female Ht: 63 in Wt: 194 lbs BSA: 2.02 m2 HR: 58 bpm BP: 134 / 95 mmHg Exam Date: 01/08/2025 8:40 AM Patient Status: O Admit Date: 01/08/2025 Exam Type: CA stress justina w NM A regadenoson stress test was performed. Staff Referring Physician: Stiven Sol DO Attending Provider: Stiven Sol DO Exercise Technologist: Gracia Fuentes Exercise Physician: Stiven Sol DO Summary 1. 1. Negative lexiscan stress test for ischemic ST changes by ECG criteria. 2. 2. Stable hemodynamics throughout the test. 3. 3. Nuclear scan to follow and will be reported separately. Please correlate with it. 4. 4. Patient informed of the above results. Protocol: Lexiscan Stress ECG Details Stage: REST Duration (min): 0 min : 38 sec HR (bpm): 58 SBP (mmHg): --- DBP (mmHg): --- Stage: REST Duration (min): 11 min : 41 sec HR (bpm): 64 SBP (mmHg): 134 DBP (mmHg): 95 Stage: STAGE 1 Duration (min): 0 min : 59 sec HR (bpm): 92 SBP (mmHg): 160 DBP (mmHg): 92 Stage: RECOVERY Duration (min): 1 min : 0 sec HR (bpm): 96 SBP (mmHg): 160 DBP (mmHg): 92 Stage: RECOVERY Duration (min): 2 min : 0 sec HR (bpm): 85 SBP (mmHg): 160 DBP (mmHg): 92 Stage: RECOVERY Duration (min): 2 min : 57 sec HR (bpm): 85 SBP (mmHg): 146 DBP (mmHg): 88 Rest HR: 64 bpm Peak HR: 98 bpm Rest Sys BP: 134 mmHg Peak Sys BP: 160 mmHg Max Pred HR: 156 bpm % Max Pred HR: 63 % Target HR: 133 bpm Max RPP: 15,680 bpm*mmHg Termination Reason: Completed protocol Cardiac Symptoms: Shortness of breath Total Time: 1 min : 0 sec Rest Kaur BP: 95 mmHg Peak Kaur BP: 92 mmHg Total Dose: 0.4 mg Resting ECG Sinus rhythm. Stress ECG No ST changes. Arrhythmias None. Report Signatures
== END 2025-01-08 07:29 | disposition home or self-care (01) ==
PROVIDERS: PCP Nurse Practitioner Family; Visit Provider Internal Medicine Cardiovascular Disease
DX: Z01.810 Encounter for preprocedural cardiovascular examination (principal); R06.09 Other forms of dyspnea; I35.8 Other nonrheumatic aortic valve disorders; I08.1 Rheumatic disorders of both mitral and tricuspid valves
CPT/HCPCS: 78452; 93017; 93306; A9502; J2785

== ENCOUNTER 2025-01-10 10:49 | Outpatient (CLI) | payer OTHER, SELFPAY ==
--- NOTE | ~2025-01-10 | MR_ITS ---
MRI of the cervical spine Clinical History: Radiculopathy Technique: Axial T2-weighted and gradient images, and sagittal T1-weighted, T2-weighted, and STIR nidia ges were acquired. Findings: No fracture identified. There is minimal grade 1 anterolisthesis of C4 over C5. No suspicio us bone marrow signal abnormality seen. At C2-C3, there is no disc bulge or herniation. No spinal canal stenosis, cord compression, or neural foraminal narrowing. At C3-C4, there is minimal disc osteophyte complex. There is bilateral facet arthropathy. There is bi lateral neural foraminal narrowing. No spinal canal stenosis or cord compression. At C4-C5, there is minimal disc ossify complex. There is bilateral facet arthropathy. There is modera te left neural foraminal narrowing. Right neural foramen probably preserved. No canal stenosis or cor d compression. At C5-C6, there is moderate degenerative disc narrowing with diffuse disc osteophyte complex. There i s minimal flattening the ventral cord. There is severe left neural foraminal narrowing. Possible mini mal right neural foraminal narrowing. At C6-C7, there is moderate degenerative distended. There is bilateral facet arthropathy. There is pr obable minimal left neural foraminal narrowing. Right neural foramen probably preserved. No canal kellie nosis or cord compression. No abnormal signal seen in the spinal cord. Paravertebral soft tissues are unremarkable. Impression: Moderate to advanced spondylosis at C5-C6. Additional more mild degenerative changes, as above. Reviewed, dictated and finalized at [facility]. Impression: Moderate to advanced spondylosis at C5-C6. Additional more mild degenerative ch anges, as above.
== END 2025-01-10 10:50 | disposition home or self-care (01) ==
LOC: MICIMG 10:50
PROVIDERS: PCP Nurse Practitioner Family; Visit Provider Nurse Practitioner Adult Health
DX: M47.812 Spondylosis without myelopathy or radiculopathy, cervical region (principal); M50.323 Other cervical disc degeneration at C6-C7 level
CPT/HCPCS: 72141

== ENCOUNTER 2025-01-17 08:30 | Outpatient (CLI) | payer OTHER, SELFPAY ==
--- OUTSIDE RECORDS SUMMARY | 2025-01-17 08:33 | XMS_ITS | Clinical Summary ---
Author Organization [facility] Address [address] [place] [address] Care Team Providers Care Relocation Manager Name Role Phone Vladimir Aquino Elissa DPM Unavailable [phone] Kaleb Gutierrez MD Primary Care Provider [...] patient's age to complete this topic Insurance [employer] [facility] OAP Care Teams Relocation Manager Relationship Specialty Start Date End Date Kaleb Gutierrez MD [address] [place] [address] PCP - General Family Medicine 02/21/16 Vladimir Aquino DPM Podiatry 02/21/16
--- OUTSIDE RECORDS SUMMARY | 2025-01-17 08:33 | XMS_ITS | Clinical Summary ---
Author Organization [facility] Address [address] [place] [id number] Care Team Providers Care Towboat Pilot Name Role Phone Kaleb Gutierrez MD Primary [...] (02/10/2019): Added automatically from request for surgery [id number] Traumatic complete tear of left rotator cuff 11/2018 Overview (02/10/2019): Added automatically from request for surgery [id number] Surgical History Surgery Date Site/Laterality Comments SHOULDER ARTHROSCOPY 07/09/2006 - 07/08/2007 Right rotator cuff repair FOOT SURGERY 07/09/2016 - 07/08/2017 Right HYSTERECTOMY 07/09/2012 - 07/08/2013 partial Medical History Medical History Date Comments Hypertension takes lisinopril , HCTZ 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 stated she had Guill ain-[place] after a flu shot in her 30s [...] on file 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 Gender Identity Not on file Sexual Orientation [...] on file Medical Devices Implanted Type Area Greek Professor Device Identifier Shelf Expiration Date Model / Serial / Lot [employer] Ar-1927bct Corkscrew Suturetape 5.5mm 14.7mm Bioabsorbable Full Thread 1.3mm - [id number] Implanted:Qty: 1 on 02/27/2019 by Darrin Bryant MD at [facility] [place] Left: Shoulder [employer] 11/05/2020 AR-1927BCT / / [id number] [employer] Ar-1927bct Corkscrew Suturetape 5.5mm 14.7mm Bioabsorbable Full Thread 1.3mm - [id number] Implanted:Qty: 1 on 02/27/2019 by Darrin Bryant MD at [facility] [place] Left: Shoulder [employer] 11/05/2020 AR-1927BCT / / [id number] [employer] Ar-1927bct Corkscrew Suturetape 5.5mm 14.7mm Bioabsorbable Full Thread 1.3mm - [id number] Implanted:Qty: 1 on 02/27/2019 by Darrin Bryant MD at [facility] [place] Left: Shoulder [employer] 11/05/2020 AR-1927BCT / / [id number] [employer] Ar-2324 Bcm Swivelock 4.75mm 24.5mm Self Punch Vent Shoulder [place] Suture - [id number] Implanted:Qty: 1 on 02/27/2019 by Darrin Bryant MD at [facility] [place] Left: Shoulder [employer] 08/08/2020 AR-2324BCM / / [id number] [employer] Ar-2324 Bcm Swivelock 4.75mm 24.5mm Self Punch Vent Shoulder [place] Suture - [id number] Implanted:Qty: 1 on 02/27/2019 by Darrin Bryant MD at [facility] [place] Left: Shoulder [employer] 11/05/2020 AR-2324BCM / / [id number] Insurance [email or web address] [facility] [email or web address] [facility] Care Teams Towboat Pilot Relationship Specialty Start Date End Date Kaleb Gutierrez MD [address] [facility] [address] [place], [place] [id number] PCP - General 02/25/16
--- OUTSIDE RECORDS SUMMARY | 2025-01-17 08:33 | XMS_ITS | Referral Summary ---
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 Gender Identity Not on file Sexual Orientation [...] on file Medical Devices Implanted Type Area Doctor Chiropractic Device Identifier Shelf Expiration Date Model / Serial / Lot [employer] Ar-1927bct Corkscrew Suturetape 5.5mm 14.7mm Bioabsorbable Full Thread 1.3mm - [id number] Implanted:Qty: 1 on 02/27/2019 by Darrin Bryant MD at [facility] [place] Left: Shoulder [employer] 11/05/2020 AR-1927BCT / / [id number] [employer] Ar-1927bct Corkscrew Suturetape 5.5mm 14.7mm Bioabsorbable Full Thread 1.3mm - [id number] Implanted:Qty: 1 on 02/27/2019 by Darrin Bryant MD at [facility] [place] Left: Shoulder [employer] 11/05/2020 AR-1927BCT / / [id number] [employer] Ar-1927bct Corkscrew Suturetape 5.5mm 14.7mm Bioabsorbable Full Thread 1.3mm - [id number] Implanted:Qty: 1 on 02/27/2019 by Darrin Bryant MD at [facility] Left: Shoulder [employer] 11/05/2020 AR-1927BCT / / [id number] [employer] Ar-2324 Bcm Swivelock 4.75mm 24.5mm Self Punch Vent Shoulder [place] Suture - [id number] Implanted:Qty: 1 on 02/27/2019 by Darrin Bryant MD at [facility] Left: Shoulder [employer] 08/08/2020 AR-2324BCM / / [id number] [employer] Ar-2324 Bcm Swivelock 4.75mm 24.5mm Self Punch Vent Shoulder [place] Suture - [id number] Implanted:Qty: 1 on 02/27/2019 by Darrin Bryant MD at [facility] Left: Shoulder [employer] 11/05/2020 AR-2324BCM / / [id number] Insurance [id number] [place] [address] [facility] Care Teams Molder Automobile Carpets Relationship Specialty Start Date End Date Kaleb Gutierrez MD [address] [facility] [address] [place] [address] PCP - General 02/25/16
--- OUTSIDE RECORDS SUMMARY | 2025-01-17 08:33 | XMS_ITS ---
Author Organization Unknown Medications Medication Instructions Effective Dates (start - stop) Status - - Compl eted hydrochlorothiazide 12.5 MG / lisinopril 10 MG Oral Tablet - Complete d hydrochlorothiazide 12.5 MG / lisinopril 10 MG Oral Tablet - Complete d meloxicam 7.5 MG Oral Tablet [id number] 0:00:00Z - Completed amoxicillin 500 MG Oral [...] - Completed meloxicam 7.5 MG Oral Tablet [id number] 0:00:00Z - Completed gabapentin 300 MG Oral [...] - Completed meloxicam 7.5 MG Oral Tablet [id number] 0:00:00Z - Completed gabapentin 300 MG Oral Capsule 2023-03-20 T00:00:00Z - Completed acetaminophen 325 MG / hydro codone bitartrate 5 MG Oral Tablet - Completed meloxicam 7.5 MG Oral Tablet [id number] 0:00:00Z - Completed Patient Care team information Name Category Status Period Participants - - Proposed period not known -
--- OUTSIDE RECORDS SUMMARY | 2025-01-17 08:33 | XMS_ITS | Continuity of Care Document ---
Author Organization [facility] Address [address] [place] [address] [place] [address] Phone Care Team Providers Care Table Cut Off Saw Operator Name Role Phone Reggie Finnegan Unavailable Unavailable Procedures Procedure Date Office/outpatient Visit, [facility] Advance Directives Directive Yes / No Effective Date File Name No Information Encounters Encounter Description Practice Location Reason(s) For Visit Diagnoses Date Provider Providers Copied on Encounter Office/outpa tient Visit, [facility], [address], [place], [place], [id number], tel:[phone] [facility] No Information Sep-0 9-200 [address] [facility] [address], [place], [address], [place]. tel:[phone] Family History Family Member Type Diagnosis Age At Onset No Information Payers Payer name Insurance type Covered alliance party ID Authoriza tion(s) No Information Social [...]
[2025-01-17 08:53] LABS: Hematocrit 37.3 % (37.0-47.0); Hemoglobin 12.2 g/dL (12.0-15.0); Immature Granulocyte Percent A 0.3 % (0-0.5); Lymphocytes Absolute Auto 1.67 K/mm3 (0.9-3.2); Mean Corpuscular HGB Conc 32.7 g/dl (32-36); Mean Corpuscular Hemoglobin 30.3 pg (26-34); Mean Corpuscular Volume 92.8 fl (80-100); Nucleated Red Blood Cells Absolute Auto 0.000 K/mm3 (0.0-0.012); Nucleated Red Blood Cells Perc 0.0 % (0.0-0.2); Platelet Count Result 246 k/mm3 (150-375); Red Blood Count 4.02 M/mm3 (4.2-5.4); White Blood Count 6.5 K/mm3 (4.5-10.0)
[2025-01-17 09:15] LABS: Alanine Aminotransferase 22 U/L (6-35); Albumin Level 4.2 g/dL (3.5-5.1); Alkaline Phosphatase 84 U/L (38-126); Anion Gap 6 mmol/L (4-12); Aspartate Amino Transferase 30 U/L (14-36); Bilirubin,Total 0.6 mg/dL (0.2-1.3); Blood Urea Nitrogen 24 mg/dL (7-17); Calcium 10.1 mg/dL (8.4-10.2); Carbon Dioxide 27 mmol/L (22-30); Chloride 105 mmol/L (98-107); Cholesterol 196 mg/dL (0-200); Estimated Glomerular Filt Rate > 60; Glucose 101 mg/dL (65-110); HDL Direct 62 mg/dL; Potassium 4.7 mmol/L (3.4-5.0); Sodium 138 mmol/L (137-145); Total Protein 7.3 g/dL (6.3-8.2); Triglycerides 75 mg/dL (<150)
[2025-01-17 09:24] LABS: Hemoglobin A1C 5.6 % (<5.7)
== END 2025-01-17 08:31 | disposition home or self-care (01) ==
LOC: ANHLAB 08:31
PROVIDERS: PCP Nurse Practitioner Family; Visit Provider Nurse Practitioner Family
DX: E55.9 Vitamin D deficiency, unspecified (principal); I10 Essential (primary) hypertension; R73.02 Impaired glucose tolerance (oral); R20.2 Paresthesia of skin; G47.31 Primary central sleep apnea; E66.9 Obesity, unspecified; Z79.899 Other long term (current) drug therapy
CPT/HCPCS: 36415; 80053; 80061; 82306; 83036; 85025

== ENCOUNTER 2025-01-21 23:36 | Emergency (ER) | payer OTHER, SELFPAY ==
--- NOTE | ~2025-01-21 | CT_ITS ---
Non-contrast Head CT History: Head injury Technique: Axial non-contrast imaging of the brain was performed. Dose reduction technique was used on this scan by utilizing automated exposure control and iterative reconstruction technique. The dose -length product (DLP) was 681.00 mGy-cm. Findings: There is no evidence of intracranial hemorrhage, mass lesion, or acute infarct. Brain par enchyma appears normal. The ventricles and subarachnoid spaces are normal in size. The calvarium ap pears normal. The visualized paranasal sinuses and mastoid air cells are clear. Impression: No significant abnormality seen. Reviewed, dictated and finalized at location . Impression: No significant abnormality seen.
--- NOTE | ~2025-01-21 | CT_ITS ---
Noncontrast CT scan of the cervical spine Technique: Multiple contiguous axial [address] images of the cervical spine were obtained and rec onstructed in 2D sagittal and coronal planes on the acquisition scanner. Dose reduction technique was used on this scan by utilizing automated exposure control, adjustment of the mA and/or kV according to patient size. The dose-length product (DLP) was 509.92 mGy-cm. Clinical History: Pain Findings: No fractures or dislocations. There is advanced degenerative disc narrowing at C5-C6 and C 6-C7. There is mild to moderate degenerative change at the articulation of the odontoid process with the anterior arch of C1. There is right neural foraminal narrowing at C3-C4 the right facet arthropat hy in particular. There is prominent bilateral facet arthropathy at C4-C5 with bilateral neural soledad inal narrowing. There is left neural foraminal narrowing at C5-C6. No prevertebral soft tissue swelli ng. Impression: No fracture or subluxation of the cervical spine. Degenerative spondylosis, as above. Reviewed, dictated and finalized at location M. Impression: No fracture or subluxation of the cervical spine. Degenerative spondylosis, as above.
--- OUTSIDE RECORDS SUMMARY | 2025-01-21 23:38 | XMS_ITS ---
Author Organization Unknown Medications Medication Instructions Effective Dates (start - stop) Status hydrochlorothiazide 12.5 MG / lisinopril 10 MG Oral Tablet - Complete d gabapentin 300 MG Oral Capsule 2023-07-23 T00:00:00Z - Completed {21 (methylprednisolone 4 MG Oral Tablet) } Pack - Completed gabapentin 300 MG Oral Capsule 2023-04-22 T00:00:00Z - Completed hydrochlorothiazide 12.5 MG / lisinopril 10 MG Oral Tablet - Complete d hydrochlorothiazide 12.5 MG / lisinopril 10 MG Oral Tablet - Complete d gabapentin 300 MG Oral Capsule 2023-03-20 T00:00:00Z - Completed gabapentin 300 MG Oral Capsule 2023-10-25 T00:00:00Z - Completed meloxicam 7.5 MG Oral Tablet [id number] 0:00:00Z - Completed - - Compl eted gabapentin 300 MG Oral Capsule 2023-05-16 T00:00:00Z - Completed gabapentin 300 MG Oral Capsule 2023-02-18 T00:00:00Z - Completed gabapentin 300 MG Oral Capsule 2023-09-24 T00:00:00Z - Completed penicillin V potassium 500 M G Oral Tablet - Completed acetaminophen 325 MG / hydro codone bitartrate 5 MG Oral Tablet - Completed gabapentin 300 MG Oral Capsule 2023-06-24 T00:00:00Z - Completed amoxicillin 500 MG Oral Capsule 2023-09-08 7T00:00:00Z - Completed gabapentin 300 MG Oral Capsule 2023-08-23 T00:00:00Z - Completed gabapentin 300 MG Oral Capsule 2023-11-23 T00:00:00Z - Completed meloxicam 7.5 MG Oral Tablet [id number] 0:00:00Z - Completed hydrochlorothiazide 12.5 MG / lisinopril 10 MG Oral Tablet - Complete d meloxicam 7.5 MG Oral Tablet [id number] 0:00:00Z - Completed meloxicam 7.5 MG Oral Tablet [id number] 0:00:00Z - Completed Patient Care team information Name Category Status Period Participants - - Proposed period not known -
--- OUTSIDE RECORDS SUMMARY | 2025-01-21 23:38 | XMS_ITS | Referral Summary ---
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 Gender Identity Not on file Sexual Orientation [...] on file Medical Devices Implanted Type Area Bisque Finisher Device Identifier Shelf Expiration Date Model / Serial / Lot [employer] Ar-1927bct Corkscrew Suturetape 5.5mm 14.7mm Bioabsorbable Full Thread 1.3mm - [id number] Implanted:Qty: 1 on 02/27/2019 by Darrin Bryant MD at [facility] [place] Left: Shoulder [employer] 11/05/2020 AR-1927BCT / / [id number] [employer] Ar-1927bct Corkscrew Suturetape 5.5mm 14.7mm Bioabsorbable Full Thread 1.3mm - [id number] Implanted:Qty: 1 on 02/27/2019 by Darrin Bryant MD at [facility] [place] Left: Shoulder [employer] 11/05/2020 AR-1927BCT / / [id number] [employer] Ar-1927bct Corkscrew Suturetape 5.5mm 14.7mm Bioabsorbable Full Thread 1.3mm - [id number] Implanted:Qty: 1 on 02/27/2019 by Darrin Bryant MD at [facility] Left: Shoulder [employer] 11/05/2020 AR-1927BCT / / [id number] [employer] Ar-2324 Bcm Swivelock 4.75mm 24.5mm Self Punch Vent Shoulder [place] Suture - [id number] Implanted:Qty: 1 on 02/27/2019 by Drarin Bryant MD at [facility] Left: Shoulder [employer] 08/08/2020 AR-2324BCM / / [id number] [employer] Ar-2324 Bcm Swivelock 4.75mm 24.5mm Self Punch Vent Shoulder [place] Suture - [id number] Implanted:Qty: 1 on 02/27/2019 by Darrin Bryant MD at [facility] Left: Shoulder [employer] 11/05/2020 AR-2324BCM / / [id number] Insurance [id number] [place] [address] [facility] Care Teams Door Installer Relationship Specialty Start Date End Date Kaleb Gutierrez MD [address] [facility] [address] [place] [address] PCP - General 02/25/16
--- OUTSIDE RECORDS SUMMARY | 2025-01-21 23:38 | XMS_ITS | Clinical Summary ---
Author Organization [facility] Address [address] [place] [address] Care Team Providers Care Corporate Accountant Name Role Phone Kaleb Gutierrez MD Primary [...] (02/10/2019): Added automatically from request for surgery [id number] Traumatic complete tear of left rotator cuff 11/2018 Overview (02/10/2019): Added automatically from request for surgery [id number] Surgical History Surgery Date Site/Laterality Comments SHOULDER ARTHROSCOPY 07/09/2006 - 07/08/2007 Right rotator cuff repair FOOT SURGERY 07/09/2016 - 07/08/2017 Right HYSTERECTOMY 07/09/2012 - 07/08/2013 partial Medical History Medical History Date Comments Hypertension takes lisinopril , HCTZ 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 Orthopedic Dwarf Left: Shoulder [employer] 11/05/2020 AR-1927BCT / / [id number] [employer] Ar-1927bct Corkscrew Suturetape 5.5mm 14.7mm Bioabsorbable Full Thread 1.3mm - [id number] Implanted:Qty: 1 on 02/27/2019 by Darrin Bryant MD at [facility] Orthopedic Dwarf Left: Shoulder [employer] 11/05/2020 AR-1927BCT / / [id number] [employer] Ar-1927bct Corkscrew Suturetape 5.5mm 14.7mm Bioabsorbable Full Thread 1.3mm - [id number] Implanted:Qty: 1 on 02/27/2019 by Darrin Bryant MD at [facility] Orthopedic Dwarf Left: Shoulder [employer] 11/05/2020 AR-1927BCT / / [id number] [employer] Ar-2324 Bcm Swivelock 4.75mm 24.5mm Self Punch Vent Shoulder [place] Suture - [id number] Implanted:Qty: 1 on 02/27/2019 by Darrin Bryant MD at [facility] Orthopedic Dwarf Left: Shoulder [employer] 08/08/2020 AR-2324BCM / / [id number] [employer] Ar-2324 Bcm Swivelock 4.75mm 24.5mm Self Punch Vent Shoulder [place] Suture - [id number] Implanted:Qty: 1 on 02/27/2019 by Darrin Bryant MD at [facility] Orthopedic Dwarf Left: Shoulder [employer] 11/05/2020 AR-2324BCM / / [id number] Insurance [employer] [facility] [employer] [facility] Care Teams Corporate Accountant Relationship Specialty Start Date End Date Kaleb Gutierrez MD [address] [facility] [address] [place], [place] [phone] PCP - General 02/25/16
--- OUTSIDE RECORDS SUMMARY | 2025-01-21 23:38 | XMS_ITS | Clinical Summary ---
Author Organization [facility] Address [address] [place] [address] Care Team Providers Care Business Services Analyst Name Role Phone Vladimir Aquino Elissa DPM Unavailable [phone] Kaleb Gutierrez MD Primary Care Provider [...] patient's age to complete this topic Insurance [employer] [facility] OAP Care Teams Business Services Analyst Relationship Specialty Start Date End Date Kaleb Gutierrez MD [address] [place] [address] PCP - General Family Medicine 02/21/16 Vladimir Aquino DPM Podiatry 02/21/16
--- OUTSIDE RECORDS SUMMARY | 2025-01-21 23:38 | XMS_ITS | Continuity of Care Document ---
Author Organization [facility] Address [address] [place] [address] [facility] [address] [place] [address] Phone Care Team Providers Care Electrician Research Name Role Phone Reggie Finnegan Unavailable Unavailable Procedures Procedure Date Office/outpatient Visit, [facility] Advance Directives Directive Yes / No Effective Date File Name No Information Encounters Encounter Description Practice Location Reason(s) For Visit Diagnoses Date Provider Providers Copied on Encounter Office/outpa tient Visit, [facility], [address], [place], [place], [id number], tel:[phone] [facility] Professional No Information Sep-0 9-200 9 Kain Paredes. [address] [facility] [address], [place], [address], [place]. tel:[phone] Family History Family Member Type Diagnosis Age [...]
[2025-01-21 23:53] VITALS: BP 169/79; PULSE 69; RESP 16; TEMP 36.9; O2SAT 100
--- NOTE | 2025-01-22 01:18 | PC.NURSE ---
Pt presents to ED due to ground level fall, + HS and - blood thinner. Pt reports (L) eye vision changed, denies n/v and denies dizziness.
--- OUTSIDE RECORDS SUMMARY | 2025-01-22 02:37 | XMS_ITS | Continuity of Care Document ---
Author Organization [facility] Address [address] [place] [address] [facility] [address] [place] [address] Phone Care Team Providers Care Cage Tender Name Role Phone Reggie Finnegan Unavailable Unavailable Procedures Procedure Date Office/outpatient Visit, [facility] Advance Directives Directive Yes / No Effective Date File Name No Information Encounters Encounter Description Practice Location Reason(s) For Visit Diagnoses Date Provider Providers Copied on Encounter Office/outpa tient Visit, [facility], [address], [place], [place], [id number], tel:[phone] [facility] Professional No Information Sep-0 9-200 9 Kain Paredes. [address] [facility] [address], [place], [address], [place]. tel:[phone] Family History Family Member Type Diagnosis Age [...]
--- OUTSIDE RECORDS SUMMARY | 2025-01-22 02:37 | XMS_ITS | Clinical Summary ---
Author Organization [facility] Address [address] [place] [address] Care Team Providers Care Soap Tender Name Role Phone Vladimir Aquino Elissa DPM Unavailable [phone] Kaleb Gutierrez MD Primary Care Provider [...] patient's age to complete this topic Insurance [employer] [facility] OAP Care Teams Soap Tender Relationship Specialty Start Date End Date Kaleb Gutierrez MD [address] [place] [address] PCP - General Family Medicine 02/21/16 Vladimir Aquino DPM Podiatry 02/21/16
--- OUTSIDE RECORDS SUMMARY | 2025-01-22 02:37 | XMS_ITS | Clinical Summary ---
Author Organization [facility] Address [address] [place] [address] Care Team Providers Care Biometrics Experimentalist Name Role Phone Kaleb Gutierrez MD Primary [...] (02/10/2019): Added automatically from request for surgery [id number] Traumatic complete tear of left rotator cuff 11/2018 Overview (02/10/2019): Added automatically from request for surgery [id number] Surgical History Surgery Date Site/Laterality Comments SHOULDER ARTHROSCOPY 07/09/2006 - 07/08/2007 Right rotator cuff repair FOOT SURGERY 07/09/2016 - 07/08/2017 Right HYSTERECTOMY 07/09/2012 - 07/08/2013 partial Medical History Medical History Date Comments Hypertension takes lisinopril , HCTZ 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 Patient stated she had Guill ain-Devon after a flu shot in her 30s [...] on file 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 Gender Identity Not on file Sexual [...] on file Medical Devices Implanted Type Area Magazine Filler Device Identifier Shelf Expiration Date Model / Serial / Lot Ar[employer]rex Inc Ar-1927bct Corkscrew Suturetape 5.5mm 14.7mm Bioabsorbable Full Thread 1.3mm - [id number] Implanted:Qty: 1 on 02/27/2019 by Darrin Bryant MD at [facility] [place] Left: Shoulder [employer] 11/05/2020 AR-1927BCT / / [id number] [employer] Ar-1927bct Corkscrew Suturetape 5.5mm 14.7mm Bioabsorbable Full Thread 1.3mm - [id number] Implanted:Qty: 1 on 02/27/2019 by Darrin Bryant MD at [facility] [place] Left: Shoulder [employer] 11/05/2020 AR-1927BCT / / [id number] [employer] Ar-1927bct Corkscrew Suturetape 5.5mm 14.7mm Bioabsorbable Full Thread 1.3mm - [id number] Implanted:Qty: 1 on 02/27/2019 by Darrin Bryant MD at [facility] Orthopedic Falcon Left: Shoulder [employer] 11/05/2020 AR-1927BCT / / [id number] Ar[employer] Ar-2324 Bcm Swivelock 4.75mm 24.5mm Self Punch Vent Shoulder [place] Suture - [id number] Implanted:Qty: 1 on 02/27/2019 by Darrin Bryant MD at [facility] Orthopedic Falcon Left: Shoulder [employer] 08/08/2020 AR-2324BCM / / [id number] [employer] Ar-2324 Bcm Swivelock 4.75mm 24.5mm Self Punch Vent Shoulder [place] Suture - [id number] Implanted:Qty: 1 on 02/27/2019 by Darrin Bryant MD at [facility] Orthopedic Falcon Left: Shoulder [employer] 11/05/2020 AR-2324BCM / / [id number] Insurance [facility] [facility] [facility] Care Teams Biometrics Experimentalist Relationship Specialty Start Date End Date Kaleb Gutierrez MD [address] [facility] [address] [place], [place] [phone] PCP - General 02/25/16
--- OUTSIDE RECORDS SUMMARY | 2025-01-22 02:37 | XMS_ITS | Referral Summary ---
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 Gender Identity Not on file Sexual Orientation [...] on file Medical Devices Implanted Type Area Inspector Repairer [place] Device Identifier Shelf Expiration Date Model / Serial / Lot Ar[employer] Inc Ar-1927bct Corkscrew Suturetape 5.5mm 14.7mm Bioabsorbable Full Thread 1.3mm - [id number] Implanted:Qty: 1 on 02/27/2019 by Darrin Bryant MD at [facility]opedic [place] Left: Shoulder [employer] 11/05/2020 AR-1927BCT / / [id number] [employer] Ar-1927bct Corkscrew Suturetape 5.5mm 14.7mm Bioabsorbable Full Thread 1.3mm - [id number] Implanted:Qty: 1 on 02/27/2019 by Darrin Bryant MD at [facility] [place] Left: Shoulder [employer] 11/05/2020 AR-1927BCT / / [id number] [employer] Ar-1927bct Corkscrew Suturetape 5.5mm 14.7mm Bioabsorbable Full Thread 1.3mm - [id number] Implanted:Qty: 1 on 02/27/2019 by Darrin Bryant MD at [facility] Left: Shoulder [employer] 11/05/2020 AR-1927BCT / / [id number] [employer] Ar-2324 Bcm Swivelock 4.75mm 24.5mm Self Punch Vent Shoulder [place] Suture - [id number] Implanted:Qty: 1 on 02/27/2019 by Darrin Bryant MD at [facility] Left: Shoulder [employer] 08/08/2020 AR-2324BCM / / [id number] [employer] Ar-2324 Bcm [place]ivelock 4.75mm 24.5mm Self Punch Vent Shoulder [place] Suture - [id number] Implanted:Qty: 1 on 02/27/2019 by Darrin Bryant MD at [facility] Left: Shoulder [employer] 11/05/2020 AR-2324BCM / / [id number] Insurance [id number] [place] [address] [facility] Care Teams Air Sampling And Monitoring Relationship Specialty Start Date End Date Kaleb Gutierrez MD [address] [facility] [address] [place] [address] PCP - General 02/25/16
--- OUTSIDE RECORDS SUMMARY | 2025-01-22 02:37 | XMS_ITS ---
[...] - Completed meloxicam 7.5 MG Oral Tablet [id number] 0:00:00Z - Completed - - Compl eted [...] - Completed meloxicam 7.5 MG Oral Tablet [id number] 0:00:00Z - Completed hydrochlorothiazide 12.5 MG / lisinopril 10 MG Oral Tablet - Complete d meloxicam 7.5 MG Oral Tablet [id number] 0:00:00Z - Completed meloxicam 7.5 MG Oral Tablet [id number] 0:00:00Z - Completed Patient Care team information Name Category Status Period Participants - - Proposed period not known -
--- NOTE | 2025-01-22 03:06 | ED_ITS ---
HPI - Fall General Chief Complaint: Fall Stated Complaint: Fall Time Seen by Provider: 01/22/25 02:25 History of Present Illness HPI Narrative: 64-year-old female with a past medical history including chronic neck pain. Patient presents to the emergency department after mechanical trip and fall while trying to get into bed. She states that she was rushing to go to her bedroom and tripped forward and fell hitting her head. She did not lose consciousness or have any neurological deficits. No blood thinner use. She was complaining of some mild paraspinal neck pain left-sided and placed in C-collar upon arrival in triage. No neurological deficits and ambulatory in triage. No other systemic symptoms at this time, pain is controlled at this time and patient declined any analgesia at this juncture. Related Data Home Medications ?Medication ?Instructions ?Recorded ?Confirmed ?Last Taken ?Type cholecalciferol (vitamin D3) 25 25 mcg PO DAILY 01/24/23 12/30/24 07/20/24 History mcg (1,000 unit) capsule glucosamine 750 hb-tajbyfudnxc-noo tablet PO DAILY 01/24/23 12/30/24 Unknown History no1 625 mg-C 30 mg-alanna 1 mg tablet (Dhzmxcbcela-Dcyzypqbkvy-OFP) Allergies Allergy/AdvReac Type Severity Reaction Status Date / Time Influenza Virus Vaccines Allergy Unknown guillain Verified 12/30/24 09:03 barre Review of Systems Review of Systems: As reviewed above in HPI [facility] Past Medical History Medical History Myofascial pain Cervical radiculopathy Cervical spondylosis Cervicalgia Guillain-Roanoke History of colon polyps Periorbital cellulitis Complex sleep apnea syndrome Allergic rhinitis History of Guillain-Roanoke syndrome Chronic knee pain Screening for osteoporosis Screening for breast cancer Vitamin D deficiency, unspecified Hematuria Obesity Anemia COLIN (obstructive sleep apnea) Benign essential hypertension Hand paresthesia Surgical History Surgical History History of bunionectomy of left great toe July 2021 History of bunionectomy History of hysterectomy S/P left rotator cuff repair Family History Family History Mother Family history of malignant neoplasm of breast in first degree relative COPD (chronic obstructive pulmonary disease) Father Lung cancer Throat cancer Social History Social History Smoking status: Never smoker Alcohol intake: never Substance use: never Substance use type: does not use Do You Feel Safe in your Home?: Yes Lack of Transportation: No Lack of Food: Never True Current Housing: I Have Housing Concerned About Future Housing: No Difficulty Paying Gas/Electric Bills: No Difficulty Paying for Meds: No Currently Unemployed: No Education: High School Diploma/GED Difficulty w/ Childcare or Family Care: No Living arrangements: with family Occupation/Education: occupation Gender identity (if verbalized by the patient): Female Sexual Orientation (if Verbalized by the Patient): Straight or Heterosexual Spiritual care concerns: No Agree to blood products: Yes Exam Narrative: GENERAL: [Well-appearing, well-nourished, and in no acute distress.] HEAD: [Normocephalic, atraumatic.] EYES: [PERRLA and EOMI.] ENT: Nares clear, no rhinorrhea or epistaxis. Mucous membranes moist. NECK: Supple. C-collar in place, left-sided paracervical muscle tenderness without any overlying step-offs or deformity. No skin changes. No significant bruising. CHEST: [Clear to auscultation. No respiratory distress.] HEART: [Regular rate and rhythm]. No murmur heard. [Normal peripheral pulses.] ABDOMEN: [Soft, nondistended], [nontender], [No rigidity or guarding] EXTREMITIES: Normal range of motion. [No edema.] SKIN: Warm, dry, no rash. NEURO: [No focal deficits]. Alert and oriented [x3.] PSYCH: [Normal mood and affect.] Course Vital Signs Vital signs: Vital Signs Temperature 36.9 C 01/21/25 23:53 Pulse Rate 69 01/21/25 23:53 Respiratory Rate 16 01/21/25 23:53 Blood Pressure 169/79 H 01/21/25 23:53 Pulse Oximetry 100 01/21/25 23:53 Temperature 36.9 C 01/21/25 23:53 Pulse Rate 69 01/21/25 23:53 Respiratory Rate 16 01/21/25 23:53 Blood Pressure 169/79 H 01/21/25 23:53 Pulse Oximetry 100 01/21/25 23:53 MDM - Fall MDM Narrative Medical decision making narrative: 64-year-old female with a past medical history including chronic neck pain. Patient presents to the emergency department after mechanical trip and fall while trying to get into bed. She states that she was rushing to go to her bedroom and tripped forward and fell hitting her head. She did not lose consciousness or have any neurological deficits. No blood thinner use. She was complaining of some mild paraspinal neck pain left-sided and placed in C-collar upon arrival in triage. No neurological deficits and ambulatory in triage. No other systemic symptoms at this time, pain is controlled at this time and patient declined any analgesia at this juncture. C-collar in place, left-sided paracervical muscle tenderness without any overlying step-offs or deformity. No skin changes. No significant bruising. Patient is hemodynamically and neurologically stable and intact, suspicion for acute traumatic injury such as intracranial hemorrhage or spinal pathology is low given her unremarkable exam findings. Her age and mechanism injury do raise the chances however specially with her chronic neck pain and degenerative disease in the cervical spine. CT of the head and cervical spine were obtained. Patient re-evaluated and doing well without any need for pain medications at this time. CT scan shows no intracranial hemorrhage or mass effect, no midline shift or skull fracture, no overlying soft tissue traumatic injuries. CT of the cervical spine shows no acute osseous abnormality or traumatic malalignment. Lots of chronic multilevel degenerative disease which is known for the patient. C- collar was removed and patient is asymptomatic at this time stable for discharge with follow-up with her primary care provider. Medical Records Attestation: I reviewed the patient's medical records. Imaging Data Attestation: I personally reviewed and interpreted this imaging study as follows: My impression: No acute intracranial process, no acute cervical spine injury Discharge Plan Discharge Clinical Impression: CHI (closed head injury), Neck arthralgia, DDD (degenerative disc disease) Patient Disposition: Home Condition: Stable Instructions: Antibiotic Form Additional Instructions: Your CT scan shows no traumatic injuries. You can take Tylenol and anti- inflammatories at home for any aches or pains. Follow-up with regular doctor. Return with any emergent concerns. Patient Language: Faroese Prescriptions: No Action cholecalciferol (vitamin D3) 25 mcg (1,000 unit) capsule 25 mcg PO DAILY ypvcqydh-cflgc-fzd0-C-alanna-bor [Xwzdqnvd-Yjcah-UBL(with boron)] 938-438-26-1 mg tablet PO DAILY lisinopril-hydrochlorothiazide 10-12.5 mg tablet See Rx Instructions .ROUTE .COMPLEX Qty: 90 1RF Dose Instruction: Take 1 tablet by mouth once daily Rx Instructions: Take 1 tablet by mouth once daily fluticasone propionate [Flonase Allergy Relief] 50 mcg/actuation spray,suspension 2 spray intranasal DAILY Qty: 48 2RF Rx Instructions: administer into each nostril vitamin S04-gughl acid 1,000-400 mcg lozenge See Rx Instructions SUBLINGUAL .COMPLEX Qty: 30 0RF Rx Instructions: Dissolve one by sublingual route budesonide 3 mg capsule,delayed,extend.release 3 mg PO QAM 30 Days Qty: 30 0RF Follow-up/Referrals: Michelle Montanez APRN [Primary Care Provider] - Time of Disposition: 03:56
[2025-01-22 04:07] VITALS: BP 139/86; PULSE 72; RESP 16; O2SAT 97
== END 2025-01-22 04:04 | disposition home or self-care (01) ==
PROVIDERS: Emergency Provider Student in an Organized Health Care Education/Training Program; PCP Nurse Practitioner Family
DX: S09.90XA Unspecified injury of head, initial encounter (principal); M50.30 Other cervical disc degeneration, unspecified cervical region; G47.30 Sleep apnea, unspecified; I10 Essential (primary) hypertension; D64.9 Anemia, unspecified; M47.22 Other spondylosis with radiculopathy, cervical region; W01.0XXA Fall on same level from slipping, tripping and stumbling without subsequent striking against object, initial encounter
CPT/HCPCS: 70450; 72125; 99284

== ENCOUNTER 2025-02-11 23:10 | Emergency (ER) | payer OTHER, SELFPAY ==
--- NOTE | ~2025-02-11 | CT_ITS ---
Non-contrast Head CT History: Headache COMPARISON: 01/22/2025 Technique: Axial non-contrast imaging of the brain was performed. Dose reduction technique was used on this scan by utilizing automated exposure control and iterative reconstruction technique. The dose -length product (DLP) was 681.00 mGy-cm. Findings: There is no evidence of intracranial hemorrhage, mass lesion, or acute infarct. Brain par enchyma appears normal. The ventricles and subarachnoid spaces are normal in size. The calvarium ap pears normal. The visualized paranasal sinuses and mastoid air cells are clear. Impression: No significant abnormality seen. Reviewed, dictated and finalized at location . Impression: No significant abnormality seen.
[2025-02-11 23:12] VITALS: BP 154/73; PULSE 83; RESP 16; TEMP 36.7; O2SAT 99
--- OUTSIDE RECORDS SUMMARY | 2025-02-11 23:12 | XMS_ITS | Continuity of Care Document ---
Author Organization [facility] Address [address] [place] [address] [facility] [address] [place] [address] Phone Care Team Providers Care Section Hand Name Role Phone Reggie Finnegan Unavailable Unavailable Procedures Procedure Date Office/outpatient Visit, [facility] Advance Directives Directive Yes / No Effective Date File Name No Information Encounters Encounter Description Practice Location Reason(s) For Visit Diagnoses Date Provider Providers Copied on Encounter Office/outpa tient Visit, [facility], [address], [place], [place], [id number], tel:[phone] [facility] Professional No Information Sep-0 9-200 9 Kain Paredes. [address] [employer] [facility] [address], [place], [address], [place]. tel:[phone] Family History Family Member Type Diagnosis Age [...]
--- OUTSIDE RECORDS SUMMARY | 2025-02-11 23:12 | XMS_ITS | Clinical Summary ---
Author Organization [facility] Address [address] [place] [address] Care Team Providers Care Linen Manager Name Role Phone Vladimir Aquino Elissa DPM Unavailable [phone] aKleb Gutierrez MD Primary Care Provider Allergies No [...] Virus (HCV) Screening 1960 TdaP Immunization 1960 Cologuard 2005 Colonoscopy 2005 Colorectal Cancer Screening 2005 Immunochemical Fecal Occult Blood 2005 Pneumococcal Immunization (5 0+ years) (1 of 1 - PCV) 2010 Zoster Immunization (1 of 2) 2010 SARS-COV-2 Immunization ( - 2023- season) 2024 Influenza Immunization (#1) 2025 Respiratory Syncytial Virus (RSV) Immunization (Adult) (1 - 1-dose 75+ series) 12/18/2035 Hepatitis B Immunization Aged Out No longer eligible based on patient's age to complete this topic Human Papillomavirus (HPV) Immunization Aged Out No longer eligible b ased on patient's age to complete this topic Meningococcal Immunization (ACWY) Aged Out No longer eligible based on patient's age to complete this topic Rotavirus Immunization Aged Out No lo nger eligible based on patient's age to complete this topic Insurance bubl [facility] OAP Care Teams Linen Manager Relationship Specialty Start Date End Date Kaleb Gutierrez MD [address] [place] [address] PCP - General Family Medicine 02/21/16 Vladimir Aquino DPM Podiatry 02/21/16
--- OUTSIDE RECORDS SUMMARY | 2025-02-11 23:12 | XMS_ITS | Clinical Summary ---
Author Organization [facility] Address [address] [place] [address] Care Team Providers Care Veterans Employment Representative Name Role Phone Kaleb Gutierrez MD Primary [...] (02/10/2019): Added automatically from request for surgery [id number] Traumatic complete tear of left rotator cuff 11/2018 Overview (02/10/2019): Added automatically from request for surgery [id number] Surgical History Surgery Date Site/Laterality Comments SHOULDER ARTHROSCOPY 07/09/2006 - 07/08/2007 Right rotator cuff repair FOOT SURGERY 07/09/2016 - 07/08/2017 Right HYSTERECTOMY 07/09/2012 - 07/08/2013 partial Medical History Medical History Date Comments Hypertension takes lisinopril , HCTZ Guillain-[place] syndrome foll owing vaccination Patient stated she had Guill ain-[place] after a flu shot in her 30s [...] on file 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 [place] Left: Shoulder [employer] Inc 11/05/2020 AR-1927BCT / / [id number] Ar[employer] Ar-1927bct Corkscrew Suturetape 5.5mm 14.7mm Bioabsorbable Full Thread 1.3mm - [id number] Implanted:Qty: 1 on 02/27/2019 by Darrin Bryant MD at [facility] [place] Left: Shoulder [employer] 11/05/2020 AR-1927BCT / / [id number] Ar[employer] Ar-1927bct Corkscrew Suturetape 5.5mm 14.7mm Bioabsorbable Full Thread 1.3mm - [id number] Implanted:Qty: 1 on 02/27/2019 by Darrin Bryant MD at [facility] [place] Left: Shoulder [employer] 11/05/2020 AR-1927BCT / / [id number] Ar[employer] Inc Ar-2324 Bcm Swivelock 4.75mm 24.5mm Self Punch Vent Shoulder [place] Suture - [id number] Implanted:Qty: 1 on 02/27/2019 by Darrin Bryant MD at [facility] [place] Left: Shoulder Ar[employer] Inc 08/08/2020 AR-2324BCM / / [id number] Ar[employer] Inc Ar-2324 Bcm [place]ivel[place] 4.75mm 24.5mm Self Punch Vent Shoulder [place] Suture - [id number] Implanted:Qty: 1 on 02/27/2019 by Darrin Bryant MD at [facility] [place] Left: Shoulder Ar[employer] Inc 11/05/2020 AR-2324BCM / / [id number] Insurance [employer] [facility] [employer] [facility] Care Teams Veterans Employment Representative Relationship Specialty Start Date End Date Kaleb Gutierrez MD [address] [facility] [address] [place], [place] [id number] PCP - General 02/25/16
[2025-02-12] VITALS (13 sets, daily range): BP systolic 157–169; BP diastolic 84–93; O2SAT 93–98
--- OUTSIDE RECORDS SUMMARY | 2025-02-12 03:23 | XMS_ITS | Clinical Summary ---
Author Organization [facility] Address [address] [place] [address] Care Team Providers Care Customer Resource Specialist Name Role Phone Kaleb Gutierrez MD [...] (02/10/2019): Added automatically from request for surgery [id number] Traumatic complete tear of left rotator cuff 11/2018 Overview (02/10/2019): Added automatically from request for surgery [id number] Surgical History Surgery Date Site/Laterality Comments SHOULDER ARTHROSCOPY 07/09/2006 - 07/08/2007 Right rotator cuff repair FOOT SURGERY 07/09/2016 - 07/08/2017 Right HYSTERECTOMY 07/09/2012 - 07/08/2013 partial Medical History Medical History Date Comments Hypertension takes lisinopril , HCTZ Guillain-[place] syndrome foll owing vaccination Patient stated she had Guill ain-[place] after a flu shot in her 30s [...] on file 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 Gender Identity Not on file Sexual [...] on file Medical Devices Implanted Type Area Stitching Machine Setter Device Identifier Shelf Expiration Date Model / Serial / Lot Ar[employer]rex Inc Ar-1927bct Corkscrew Suturetape 5.5mm 14.7mm Bioabsorbable Full Thread 1.3mm - [id number] Implanted:Qty: 1 on 02/27/2019 by Darrin Bryant MD at [facility] [place] Left: Shoulder [employer] 11/05/2020 AR-1927BCT / / [id number] [employer] Ar-1927bct Corkscrew Suturetape 5.5mm 14.7mm Bioabsorbable Full Thread 1.3mm - [id number] Implanted:Qty: 1 on 02/27/2019 by Darrin Bryant MD at [facility] [place] Left: Shoulder [employer] 11/05/2020 AR-1927BCT / / [id number] [employer] Ar-1927bct Corkscrew Suturetape 5.5mm 14.7mm Bioabsorbable Full Thread 1.3mm - [id number] Implanted:Qty: 1 on 02/27/2019 by Darrin Bryant MD at [facility] [place] Left: Shoulder [employer] 11/05/2020 AR-1927BCT / / [id number] Ar[employer] Ar-2324 Bcm Swivelock 4.75mm 24.5mm Self Punch Vent Shoulder [place] Suture - [id number] Implanted:Qty: 1 on 02/27/2019 by Darrin Bryant MD at [facility] [place] Left: Shoulder [employer] 08/08/2020 AR-2324BCM / / [id number] [employer] Ar-2324 Bcm Swivelock 4.75mm 24.5mm Self Punch Vent Shoulder [place] Suture - [id number] Implanted:Qty: 1 on 02/27/2019 by Darrin Bryant MD at [facility] [place] Left: Shoulder [employer] 11/05/2020 AR-2324BCM / / [id number] Insurance [employer] [facility] [employer] [facility] Care Teams Customer Resource Specialist Relationship Specialty Start Date End Date Kaleb Gutierrez MD [address] [facility] [address] [place], [place] [phone] PCP - General 02/25/16
--- OUTSIDE RECORDS SUMMARY | 2025-02-12 03:23 | XMS_ITS | Continuity of Care Document ---
Author Organization [facility] Address [address] [place] [address] [facility] [address] [place] [address] Phone Care Team Providers Care Case Manager Name Role Phone Reggie Finnegan Unavailable Unavailable Procedures Procedure Date Office/outpatient Visit, [facility] Advance Directives Directive Yes / No Effective Date File Name No Information Encounters Encounter Description Practice Location Reason(s) For Visit Diagnoses Date Provider Providers Copied on Encounter Office/outpa tient Visit, [facility], [address], [place], [place], [id number], tel:[phone] [facility] Professional No Information Sep-0 9-200 9 Kain Paredes. [address] [facility] [address], [address], [place]. tel:[phone] Family History Family Member Type Diagnosis Age [...]
--- OUTSIDE RECORDS SUMMARY | 2025-02-12 03:23 | XMS_ITS | Clinical Summary ---
Author Organization [facility] Address [address] [place] [address] Care Team Providers Care Electrical Fitter Name Role Phone Vladimir Aquino Elissa DPM Unavailable [phone] Kaleb Gutierrez MD Primary Care Provider [...] patient's age to complete this topic Insurance [employer] [facility] OAP Care Teams Electrical Fitter Relationship Specialty Start Date End Date Kaleb Gutierrez MD [address] [place] [address] PCP - General Family Medicine 02/21/16 Vladimir Aquino DPM Podiatry 02/21/16
--- NOTE | 2025-02-12 03:56 | ED.HA ---
HPI - Headache General Chief Complaint: Headache Stated Complaint: Headache Time Seen by Provider: 02/12/25 02:48 Source: patient and family Limitations: no limitations History of Present Illness HPI Narrative: Patient presents with a headache that started at 6:30 a.m.. She states she does not frequently get headaches. She has taken Tylenol 4 times but has not found that provided any relief. Last dose was at 4:00 p.m.. She is unable to take any NSAIDs currently as she has an upcoming procedure on 02/17/2025 here at [place]. She is supposed to be receiving cortisone injections in her neck and is to hold NSAIDs until this time. Currently going through physical therapy for her neck including leading up to her developing the headache as well as continuing to proceed with physical therapy after the headache had been present. She thinks she might have overdone it. Denies any recent falls, had a fall approximately 1 month ago. Does not have a ICT SALES REPRESENTATIVE shunt. Denies any fevers but has been feeling chilled. No photophobia or phonophobia. Has an upcoming knee replacement surgery pending. Related Data Home Medications ?Medication ?Instructions ?Recorded ?Confirmed ?Last Taken ?Type cholecalciferol (vitamin D3) 25 25 mcg PO DAILY 01/24/23 02/11/25 07/20/24 History mcg (1,000 unit) capsule glucosamine 750 rt-tgmajuuorfk-wha 1 tablet PO DAILY 01/24/23 02/11/25 Unknown History no1 625 mg-C 30 mg-alanna 1 mg tablet (Uuwjodjoczv-Tkbnjwumlnj-TXI) Mccracken's wort 300 mg capsule 300 mg PO DAILY 02/11/25 02/11/25 Unknown History ascorbic acid (vitamin C) 1,000 mg 1 g PO DAILY 02/11/25 02/11/25 Unknown History tablet (C-1000) budesonide 3 mg 3 mg PO DAILY 02/11/25 02/11/25 Unknown History capsule,delayed,extended release loratadine 10 mg tablet (Allergy 10 mg PO DAILY 02/11/25 02/11/25 Unknown History Relief (loratadine)) magnesium oxide 250 mg PO DAILY 02/11/25 02/11/25 Unknown History terbinafine HCl 250 mg tablet 250 mg PO DAILY 02/11/25 02/11/25 Unknown History turmeric 400 mg capsule 400 mg PO DAILY 02/11/25 02/11/25 Unknown History Allergies Allergy/AdvReac Type Severity Reaction Status Date / Time Influenza Virus Vaccines Allergy Unknown guillain Verified 02/11/25 23:11 barre PMFSH Past Medical History Medical History Myofascial pain Cervical radiculopathy Cervical spondylosis Cervicalgia History of colon polyps Periorbital cellulitis Complex sleep apnea syndrome Allergic rhinitis History of Guillain-[place] syndrome Chronic knee pain Screening for osteoporosis Screening for breast cancer Vitamin D deficiency, unspecified Hematuria Obesity Anemia COLNI (obstructive sleep apnea) Benign essential hypertension Hand paresthesia Surgical History Surgical History History of bunionectomy of left great toe July 2021 History of hysterectomy S/P left rotator cuff repair Family History Family History Mother Family history of malignant neoplasm of breast in first degree relative COPD (chronic obstructive pulmonary disease) Father Lung cancer Throat cancer Social History Social History Smoking status: Never smoker Alcohol intake: never Substance use: never Substance use type: does not use Do You Feel Safe in your Home?: Yes Lack of Transportation: No Lack of Food: Never True Current Housing: I Have Housing Concerned About Future Housing: No Difficulty Paying Gas/Electric Bills: No Difficulty Paying for Meds: No Currently Unemployed: No Education: High School Diploma/GED Difficulty w/ Childcare or Family Care: No Living arrangements: with family Occupation/Education: occupation Gender identity (if verbalized by the patient): Female Sexual Orientation (if Verbalized by the Patient): Straight or Heterosexual Spiritual care concerns: No Agree to blood products: Yes Exam Narrative: GENERAL: Well-appearing, well-nourished, and in no acute distress. HEAD: Normocephalic, atraumatic. No tenderness to palpation of scalp. EYES: Non injected, non icteric.Pupils grossly normal. ENT: Nares clear, no rhinorrhea or epistaxis. Gross auditory acuity intact. NECK: Supple. No meningismus. CHEST: Speaking in full sentences. No respiratory distress. HEART: Regular rate and rhythm. . ABDOMEN: Soft, nondistended. EXTREMITIES: Normal range of motion. No lower extremity edema. SKIN: Warm, dry, no rash. NEURO: No focal deficits. Alert and oriented. Answering questions. Following commands. Normal speech without aphasia or dysarthria. PSYCH: Normal mood and affect. Course Vital Signs Vital signs: Vital Signs Temperature 98.1 F 02/11/25 23:12 Pulse Rate 83 02/11/25 23:12 Respiratory Rate 16 02/11/25 23:12 Blood Pressure 154/73 H 02/11/25 23:12 Pulse Oximetry 99 02/11/25 23:12 Oxygen Delivery Room Air 02/11/25 23:12 Temperature 98.1 F 02/11/25 23:12 Pulse Rate 83 02/11/25 23:12 Respiratory Rate 16 02/11/25 23:12 Blood Pressure 169/93 H 02/12/25 06:01 Pulse Oximetry 95 02/12/25 06:31 Oxygen Delivery Room Air 02/11/25 23:12 MDM - Headache MDM Narrative Medical decision making narrative: Patient presents with a headache of nearly 24 hours duration. In the emergency department she is afebrile with vital signs notable for mild hypertension. After obtaining the patient's history and performing a physical exam, the headache is most likely due to benign etiology. The neurological examination is non-focal, there are no high-risk features on history, vital signs are stable, and the patient is non-toxic appearing. DIFFERENTIAL DIAGNOSIS: Tension headache, migraine, or other headache of non-emergent etiology. Also considered subarachnoid hemorrhage, subdural/epidural hematoma, meningitis, temporal arteritis, acute angle glaucoma , carbon monoxide poisoning. Considered hypertensive emergency/PRES. CT imaging obtained from triage. Stat Rad interprets this with potential ventriculomegaly. Patient has not been having falls or ataxia or urinary symptoms. Agustin Rads does not Given patient is not to be using NSAIDs currently in anticipation of upcoming injection and subsequent surgery later, The patient's headache was treated symptomatically with oral Tylenol, IV fluids, benadryl; compazine and magnesium. Upon reevaluation, she stated the headache was improving although still present. Morphine was ordered. However, in the interim between the order being placed and nursing reassessment to administer it, patient had commented that she was feeling much better and thus morphine was not given and she was discharged home in stable condition. Given a 1 time dose of dexamethasone as this has been shown to reduce the occurrence of rebound/bounce-back headache. Instructed to follow up and return to ED with new/worsening symptoms. Provided prescriptions for acetaminophen Zofran. Otherwise stable. Imaging Data Radiologist's impression: CT Head Stat Rad: Redemonstration of mild ventriculomegaly. Correlate with NPH verses volume loss. Otherwise no acute findings. Impressions Head CT 02/12/25 05:31 Impression: No significant abnormality seen. Discharge Plan Discharge Clinical Impression: Headache Patient Disposition: Home Condition: Stable Instructions: Antibiotic Form, Acute Headache (ED) Additional Instructions: Reassured that your headache has improved. You were given a 1 time dose of a steroid which is shown to reduce the chance of a rebound/bounce-back headache. Follow-up with your primary care provider. Keep your upcoming appointment for your procedure/injection. Typically Acetaminophen/Tylenol (maximum 4000 mg per day) is safe to take with NSAIDs (ibuprofen/Motrin) for pain relief but avoid NSAIDs for the time being as advised by your other doctors. Ondansetron/Zofran can help with nausea/vomiting. Patient Language: Lithuanian Prescriptions: New acetaminophen 500 mg capsule 1,000 mg PO Q6H PRN (Reason: pain) Qty: 30 0RF ondansetron 4 mg tablet,disintegrating 4 mg PO Q8H PRN (Reason: nausea and vomiting) Qty: 7 0RF No Action cholecalciferol (vitamin D3) 25 mcg (1,000 unit) capsule 25 mcg PO DAILY jezjlrpq-uqwcw-yco1-C-alanna-bor [Cxhpbsir-Xjdcx-EGS(with boron)] 770-669-04-1 mg tablet 1 tablet PO DAILY fluticasone propionate [Flonase Allergy Relief] 50 mcg/actuation spray,suspension 2 spray intranasal DAILY Qty: 48 2RF Rx Instructions: administer into each nostril vitamin Q13-tcszy acid 1,000-400 mcg lozenge See Rx Instructions SUBLINGUAL .COMPLEX Qty: 30 0RF Rx Instructions: Dissolve one by sublingual route lisinopril-hydrochlorothiazide 10-12.5 mg tablet See Rx Instructions .ROUTE .COMPLEX Qty: 90 1RF Dose Instruction: Take 1 tablet by mouth once daily Rx Instructions: Take 1 tablet by mouth once daily budesonide 3 mg capsule,delayed,extend.release 3 mg PO DAILY Mccracken's wort 300 mg capsule 300 mg PO DAILY ascorbic acid (vitamin C) [C-1000] 1,000 mg tablet 1 g PO DAILY magnesium oxide 250 mg magnesium tablet 250 mg PO DAILY loratadine [Allergy Relief (loratadine)] 10 mg tablet 10 mg PO DAILY terbinafine HCl 250 mg tablet 250 mg PO DAILY turmeric 400 mg capsule 400 mg PO DAILY Follow-up/Referrals: Michelle Montanez APRN [Primary Care Provider] - Stand Alone Forms: Work/School Release IP Time of Disposition: 06:37
[2025-02-12] MEDS: ACETAMINOPHEN 500 MG TABLET 1000 MG PO (04:15)
[2025-02-12] MEDS: MAGNESIUM SULF 1 GM/D5W 100 ML 1 GM/100 ML BAG IVPB (04:16)
[2025-02-12] MEDS: PROCHLORPERAZINE EDISYLATE 10 MG/2 ML VIAL 5 MG IV PUSH (04:16)
[2025-02-12] MEDS: SODIUM CHLORIDE 0.9% IV 1,000 ML 999 ML IV CONT (05:27)
== END 2025-02-12 07:04 | disposition home or self-care (01) ==
PROVIDERS: Emergency Provider Student in an Organized Health Care Education/Training Program; PCP Nurse Practitioner Family
DX: R51.9 Headache, unspecified (principal); I10 Essential (primary) hypertension; M47.22 Other spondylosis with radiculopathy, cervical region
CPT/HCPCS: 70450; 96361; 96365; 96375; 99284; A9270; J0780; J1200; J3475; J7030; J8540

== ENCOUNTER 2025-02-17 02:10 | Day surgery (SDC) | payer OTHER, SELFPAY ==
[2025-02-11 13:49] VITALS: BMI 34.2
--- NOTE | 2025-02-11 13:57 | PC.NURSE ---
Report to the Outpatient Waiting Room, entrance under the green pavilion located off [facility], at time _215pm_ on date _[id number]_. Planned Procedure Time: _315pm_.? Time changes happen often and if your time is changed the preop area will call you the afternoon before. - You and your visitor will be asked to self-screen and do not enter if you have any COVID symptoms. Please call surgeon if you need to reschedule. - A mask is optional within the hospital at this time. No smoking, or chewing tobacco (or any form of nicotine). No chewing gum, candy or mints. OK for breakfast and a light lunch. Nothing to eat or drink after 115pm Take only the following medications with a SIP of water on the morning of surgery: ____Take medications as usual.___ DO NOT STOP ANY OF YOUR OTHER PRESCRIPTION MEDICATIONS PRIOR TO SURGERY EXCEPT THE FOLLOWING Hold all vitamins and supplements for 3 days per anesthesiologist. Medications to discontinue per physician Date to take last dose Please no make-up, nail macanese, hairspray, perfume, deodorant, or body powder the day of surgery.? No jewelry (including any body piercings) or valuables the day of surgery, leave them at home.? Please take a shower or bath the night before, or the morning of, surgery with an antibacterial soap.? Wear comfortable, loose fitting clothing.? - Jewelry must be removed prior to entering the operating room.? Rings and piercings that are not removed may be cut off. - The hospital will not accept responsibility for valuables.? - Please leave all valuables, including medications, at home the day of surgery. If you are going home after surgery, a licensed sprinkling truck driver must drive you home.? - NO public transportation without another adult if you receive anesthesia. - We also recommend that you do not drive for at least 24 hours after your discharge time. Follow any additional instructions given to you from your surgeon. Telephone instructions given to ____and asked if any additional questions and then verbalized understanding. Patient advised to call surgeon office or pre surgery nurse liaison [phone] if any additional questions.
--- NOTE | ~2025-02-17 | XR_ITS ---
INTRAOPERATIVE FLUOROSCOPY: CLINICAL HISTORY: 64 years old Female; LEFTWARD C5-6 CERVICAL INTERLAMINAR EPIDURAL STEROID INJECTI PROCEDURE COMMENTS: Limited intraoperative fluoroscopy of the cervical spine was performed. CUMULATIVE DOSE: 13.9 mGy FLUOROSCOPY TIME: 31 seconds FINDINGS/IMPRESSION: Please refer to operative note for further details. Reviewed, dictated and finalized at location A.
--- OUTSIDE RECORDS SUMMARY | 2025-02-17 02:12 | XMS_ITS | Clinical Summary ---
Author Organization [facility] Address [address] [place] [address] Care Team Providers Care Business Development Consultant Name Role Phone Vladimir Aquino Elissa DPM Unavailable [phone] Kaleb Gutierrez MD Primary Care Provider [...] patient's age to complete this topic Insurance [employer] [facility] OAP Care Teams Business Development Consultant Relationship Specialty Start Date End Date Kaleb Gutierrez MD [address] [place] [address] PCP - General Family Medicine 02/21/16 Vladimir Aquino DPM Podiatry 02/21/16
--- OUTSIDE RECORDS SUMMARY | 2025-02-17 02:12 | XMS_ITS | Clinical Summary ---
Author Organization [facility] Address [address] [place] [address] Care Team Providers Care Plater Supervisor Name Role Phone Kaleb Gutierrez MD [...] (02/10/2019): Added automatically from request for surgery [id number] Traumatic complete tear of left rotator cuff 11/2018 Overview (02/10/2019): Added automatically from request for surgery [id number] Surgical History Surgery Date Site/Laterality Comments SHOULDER ARTHROSCOPY 07/09/2006 - 07/08/2007 Right rotator cuff repair FOOT SURGERY 07/09/2016 - 07/08/2017 Right HYSTERECTOMY 07/09/2012 - 07/08/2013 partial Medical History Medical History Date Comments Hypertension takes lisinopril , HCTZ Guillain-[place] syndrome foll owing vaccination Patient stated she had Guill ain-[place] after a flu shot in her 30s [...] on file Legal Sex Female 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 Gender Identity Not on file Sexual [...] on file Medical Devices Implanted Type Area Bone Char Kiln Operator Device Identifier Shelf Expiration Date Model / Serial / Lot [employer] Ar-1927bct Corkscrew Suturetape 5.5mm 14.7mm Bioabsorbable Full Thread 1.3mm - [id number] Implanted:Qty: 1 on 02/27/2019 by Darrin Bryant MD at [facility] [place] Left: Shoulder [employer] 11/05/2020 AR-1927BCT / / [id number] [employer] Ar-1927bct Corkscrew Suturetape 5.5mm 14.7mm Bioabsorbable Full Thread 1.3mm - [id number] Implanted:Qty: 1 on 02/27/2019 by Darrin Bryant MD at [facility] [place] Left: Shoulder [employer] 11/05/2020 AR-1927BCT / / [id number] [employer] Ar-1927bct [place]kscrew Suturetape 5.5mm 14.7mm Bioabsorbable Full Thread 1.3mm - [id number] Implanted:Qty: 1 on 02/27/2019 by Darrin Bryant MD at [facility] [place] Left: Shoulder [employer] 11/05/2020 AR-1927BCT / / [id number] [employer] Ar-2324 Bcm [place]ivel[place] 4.75mm 24.5mm Self Punch Vent Shoulder [place] Suture - [id number] Implanted:Qty: 1 on 02/27/2019 by Darrin Bryant MD at [facility] [place] Left: Shoulder [employer] 08/08/2020 AR-2324BCM / / [id number] [employer] Ar-2324 Bcm [place] 4.75mm 24.5mm Self Punch Vent Shoulder [place] Suture - [id number] Implanted:Qty: 1 on 02/27/2019 by Darrin Bryant MD at [facility]opedic [place] Left: Shoulder [employer] 11/05/2020 AR-2324BCM / / [id number] Insurance [employer] [facility] [employer] [facility] Care Teams Plater Supervisor Relationship Specialty Start Date End Date Kaleb Gutierrez MD [address] [facility] [address] [place], [place] [phone] PCP - General 02/25/16
--- OUTSIDE RECORDS SUMMARY | 2025-02-17 02:12 | XMS_ITS | Continuity of Care Document ---
Author Organization [facility] Address [address] [place] [address] [facility] [address] [place] [address] Phone Care Team Providers Care Therapy Assistant Name Role Phone Reggie Finnegan Unavailable Unavailable Procedures Procedure Date Office/outpatient Visit, [facility] Advance Directives Directive Yes / No Effective Date File Name No Information Encounters Encounter Description Practice Location Reason(s) For Visit Diagnoses Date Provider Providers Copied on Encounter Office/outpa tient Visit, [facility], [address], [place], [place], [id number], tel:[phone] [facility] Professional No Information Sep-0 9-200 9 Kain Paredes. [address] [facility] [address], [place], [address], [place]. tel:[phone] Family History Family Member Type Diagnosis Age [...]
--- NOTE | 2025-02-17 11:59 | WPDHPUPDATE1 ---
History and Physical Update Update Date/Time: 02/17/25 11:59 Procedure converted to rightward C6-7 interlaminar epidural steroid injection given lack of significant epidural space at the C5-6 level on axial and sagittal views on most recent MRI (01/12/2025). History and Physical has been reviewed, including an updated exam of the patient. There are NO changes in the patient's condition. Risks, benefits, and alternatives have been discussed and questions answered. Patient agrees to proceed with procedure.
--- NOTE | 2025-02-17 12:00 | P.OP_ITS ---
Procedure Note - Detailed Date of Procedure 02/17/25 Pre-op Diagnosis spondylosis w/o radiculopathy of cervical region Post-op Diagnosis Same Procedure Performed Leftward Cervical Interlaminar Epidural Steroid Injection at C6-7 under Fluo roscopic Guidance and with Contrast Control. Surgeon Alex Newell MD Anesthesia Local Description of Procedure INFORMED CONSENT: Risks, benefits and alternatives to the procedure were discussed in detail with the patient who expressed explicit understanding and consent to proceed. Patient was informed verbally and in written form regarding the risks associated with the procedure including the low risk of serious infection, bleeding/bruising, allergic reaction, nerve or organ injury, paralysis, procedural site pain or discomfort, worsening pain and/or mobility, failure to treat and/or disfigurement. The patient expressed explicit understanding and consent to proceed. All materials required for the procedure were available prior to procedure start. Site and side was marked prior to procedure and confirmed in the presence of the patient. PROCEDURE IN DETAIL: The patient was brought to the procedural suite and placed in the prone position. Patient's head was positioned and stabilized with a ProneView pillow or equivalent. Patient was made comfortable with use of pillows under the chest, hips and ankles. Skin overlying the injection site was prepared broadly with ChloraPrep applicator and draped in a sterile manner. Aseptic technique was employed throughout. The endplates of the vertebral body at the site of interest were aligned in the AP view. Slight caudad tilt and ipsilateral oblique angulation was utilized to optimize visualization of the targeted posterior intervertebral foramen at C6-7. Local anesthesia was established by infiltration with approximately 5 mL of 2% lidocaine via a 1-1/2 inch 27-gauge needle. A 20-gauge 4-inch Tuohy epidural needle was advanced intermittently until appropriate loss of resistance to air was identified via plastic loss of resistance syringe. Lateral view was used to confirm the appropriate positioning of the needle tip within the posterior epidural space. In the AP view, 2.0 mL of Omnipaque 300 contrast medium was injected after negative aspiration for CSF, blood or other bodily fluid, showing appropriate epidural spread of contrast without evidence of intravascular or intrathecal placement. After negative repeat aspiration for CSF, blood or other bodily fluid, A 4 mL solution containing 10 mg of dexamethasone in sterile PF Normal Saline was injected after negative repeat aspiration. Appropriate spread of the injectate was confirmed with washout of previously injected contrast. No parasthesias were elicited. Needle was removed completely intact without difficulty. Images were saved and documented in the patient chart. Patient's skin was cleansed and sterile bandage applied. The patient tolerated the procedure well. The patient was transported to the recovery area in stable condition where they were observed for an appropriate amount of time prior to discharge, without evidence of complication. The patient was instructed to avoid excessive activity for the next 48 hours, including overhead work, reaching or extended device/computer usage. Showers only for 48 hours. They were instructed not to drive or operate heavy machinery for 24 hours. They are to monitor for severe headaches, fevers, chills, night sweats, erythema/swelling at the site or any other signs of infection, bleeding/bruising, bowel or bladder changes as well as new pain, weakness or numbness in the upper or lower extremity. Should they notice these changes, they are instructed to call our office immediately or report directly to the nearest Emergency Department if no answer or if after posted office hours. CONTRAST WASTED: 28mL Omnipaque 300. Complications No immediate complications Condition Stable Disposition Same day [facility] Billing Surgery - Charge Forward: Surgery Billing
[2025-02-17 14:31] VITALS: BP 148/81; PULSE 84; RESP 16; TEMP 37.2; O2SAT 96
[2025-02-17 15:48] VITALS: BP 166/80; PULSE 88; RESP 16; O2SAT 98
[2025-02-17 15:53] VITALS: BP 153/81; PULSE 65; RESP 16; O2SAT 99
[2025-02-17] MEDS: dexAMETHasone SOD PHOS INJ 10 MG/ML 1 ML VIAL IM (15:54)
[2025-02-17 15:57] VITALS: BP 141/82; PULSE 68; RESP 16; O2SAT 99
[2025-02-17 16:01] VITALS: BP 139/63; PULSE 64; RESP 16; O2SAT 100
== END 2025-02-17 16:35 | disposition home or self-care (01) ==
PROVIDERS: PCP Nurse Practitioner Family; Visit Provider Anesthesiology Pain Medicine
PROC: (CPT 62321; principal; 2025-02-17 15:15)
DX: M47.812 Spondylosis without myelopathy or radiculopathy, cervical region (principal); M79.18 Myalgia, other site; I10 Essential (primary) hypertension; E55.9 Vitamin D deficiency, unspecified; D64.9 Anemia, unspecified; G47.33 Obstructive sleep apnea (adult) (pediatric); G61.0 Guillain-Barre syndrome; L03.213 Periorbital cellulitis; G47.39 Other sleep apnea; G89.29 Other chronic pain; M25.569 Pain in unspecified knee; Z98.890 Other specified postprocedural states; Z86.0100 Personal history of colon polyps, unspecified; Z80.3 Family history of malignant neoplasm of breast; Z80.1 Family history of malignant neoplasm of trachea, bronchus and lung
CPT/HCPCS: 62321; 99199; J1100; Q9965

== ENCOUNTER 2025-03-06 11:43 | Outpatient (CLI) | payer OTHER, SELFPAY ==
[2025-03-06 13:29] LABS: Hematocrit 35.9 % (37.0-47.0); Hemoglobin 11.8 g/dL (12.0-15.0); Immature Granulocyte Percent A 0.4 % (0-0.5); Lymphocytes Absolute Auto 1.83 K/mm3 (0.9-3.2); Mean Corpuscular HGB Conc 32.9 g/dl (32-36); Mean Corpuscular Hemoglobin 30.3 pg (26-34); Mean Corpuscular Volume 92.1 fl (80-100); Nucleated Red Blood Cells Absolute Auto 0.000 K/mm3 (0.0-0.012); Nucleated Red Blood Cells Perc 0.0 % (0.0-0.2); Platelet Count Result 258 k/mm3 (150-375); Red Blood Count 3.90 M/mm3 (4.2-5.4); White Blood Count 8.3 K/mm3 (4.5-10.0)
[2025-03-06 13:49] LABS: Albumin Level 4.1 g/dL (3.5-5.1)
[2025-03-06 13:52] LABS: Anion Gap 7 mmol/L (4-12); Blood Urea Nitrogen 19 mg/dL (7-17); Calcium 9.9 mg/dL (8.4-10.2); Carbon Dioxide 27 mmol/L (22-30); Chloride 102 mmol/L (98-107); Estimated Glomerular Filt Rate > 60; Glucose 109 mg/dL (65-110); Potassium 3.9 mmol/L (3.4-5.0); Sodium 136 mmol/L (137-145)
[2025-03-06 14:39] LABS: MRSA (PCR) NOT DETECTED (NOT DETECTE)
== END 2025-03-06 11:44 | disposition home or self-care (01) ==
LOC: ANHSURGERY 11:49
PROVIDERS: Anesthesiology; PCP Nurse Practitioner Family; Visit Provider Orthopaedic Surgery
DX: Z01.812 Encounter for preprocedural laboratory examination (principal); M17.11 Unilateral primary osteoarthritis, right knee; Z51.81 Encounter for therapeutic drug level monitoring; Z79.899 Other long term (current) drug therapy
CPT/HCPCS: 36415; 80048; 80307; 82040; 85025; 87641

== ENCOUNTER 2025-03-24 00:12 | Day surgery (SDC) | payer OTHER, SELFPAY ==
--- OUTSIDE RECORDS SUMMARY | 2008-09-14 05:30 | XMS_ITS | Continuity of Care Document ---
Author Organization [facility] Address [address] [place] [address] [facility] [address] [place] [address] Phone Care Team Providers Care Earth Observations Chief Scientist Name Role Phone eRggie Finnegan Unavailable Unavailable Procedures Procedure Date Office/outpatient Visit, [facility] Advance Directives Directive Yes / No Effective Date File Name No Information Encounters Encounter Description Practice Location Reason(s) For Visit Diagnoses Date Provider Providers Copied on Encounter Office/outpa tient Visit, [facility], [address], [place], [place], [id number], tel:[phone] [facility] No Information Sep-0 9-200 9 Kain Paredes. [address] [facility] [address], [place], [address], [place]. tel:[phone] Family History Family Member Type Diagnosis Age At Onset No Information Payers Payer name Insurance type Covered constitution party ID Authoriza tion(s) No Information Social History Type Description Quantity Date Captured Comments Sex Female Smoking Status No Information Chief Complaint And Reason For Visit No Information Reason For Referral Reason For Referral No Information History Of Present Illness Encounter Date Complaint History Of Prese nt Illness No Information Functional Status Date Functional Assessmen t No Information Instructions Date Instruction Additional Infor mation No Information Assessments Type Assessment Date No Information Patient Care Teams Name Effective Dates (start - stop) Status Members No Information
[2025-03-06 12:14] VITALS: BMI 36.8
[2025-03-06 12:26] VITALS: BP 125/76; PULSE 76; RESP 16; TEMP 36.6; O2SAT 96
--- NOTE | 2025-03-06 12:47 | PC.NURSE ---
Report to the Outpatient Waiting Room, entrance under the green pavilion located off [facility], at time __8:30AM___ on date __03/24/25___. Planned Procedure Time: ___10:30AM___.? Time changes happen often and if your time is changed the preop area will call you the afternoon before. - You and your visitor will be asked to self-screen and do not enter if you have any COVID symptoms. Please call surgeon if you need to reschedule. - A mask is optional within the hospital at this time. Patients may have clear liquids (water, carbonated beverages, clear teas, apple juice) until 3 hours prior to surgery (7:30AM) with a maximum of 20 ounces. - No food from midnight until time of surgery and no smoking, or chewing tobacco (or any form of nicotine). No chewing gum, candy or mints. Take only the following medications with a SIP of water on the morning of surgery: ___NONE DO NOT STOP ANY OF YOUR OTHER PRESCRIPTION MEDICATIONS PRIOR TO SURGERY EXCEPT THE FOLLOWING Hold all vitamins and supplements for 3 days per anesthesiologist.- LAST DOSE 02/17/25 Medications to discontinue per physician NONE Date to take last dose Please no make-up, nail argentine, hairspray, perfume, deodorant, or body powder the day of surgery.? No jewelry (including any body piercings) or valuables the day of surgery, leave them at home.? Please take a shower or bath the night before, or the morning of, surgery with an antibacterial soap.? Wear comfortable, loose fitting clothing.? - Jewelry must be removed prior to entering the operating room.? Rings and piercings that are not removed may be cut off. - The hospital will not accept responsibility for valuables.? - Please leave all valuables, including medications, at home the day of surgery. If you are going home after surgery, a licensed diesel truck driver must drive you home.? - NO public transportation without another adult if you receive anesthesia. - We recommend that an adult stay with you for 24 hours following discharge. - We also recommend that you do not drive, make important decision, drink alcoholic beverages, or take any drugs that were not prescribed by your health care provider for at least 24 hours after your discharge time. Follow any additional instructions given to you from your surgeon. Telephone instructions given to ____PATIENT & HUSBAND and asked if any additional questions and then verbalized understanding. Patient advised to call surgeon office or pre surgery nurse liaison [phone] if any additional questions.
[2025-03-24] VITALS (16 sets, daily range): BP systolic 121–156; BP diastolic 64–83; PULSE 60–80; RESP 11–20; TEMP 36.1–36.8; O2SAT 95–100
--- NOTE | ~2025-03-24 | XR_ITS ---
EXAMINATION: [id number] DATE: 03/24/2025 12:38 INDICATION: Postoperative evaluation following right total knee arthroplasty. TECHNIQUE: Anteroposterior and lateral views of the right knee were obtained. COMPARISON: 03/06/2025 FINDINGS: Right total knee arthroplasty with patellar resurfacing appears well seated and in near anatomic alignment. No fractures identified. Expected postoperative subcutaneous and intra-articular gas. IMPRESSION: 1. Right total knee arthroplasty, negative for postoperative purposes. Reviewed, dictated and finalized at location A.
--- OUTSIDE RECORDS SUMMARY | 2025-03-24 00:15 | XMS_ITS | Clinical Summary ---
Author Organization [facility] Address [address] [place] [address] Care Team Providers Care Cord Tire Builder Name Role Phone Vladimir Aquino Elissa DPM Unavailable [phone] Kaleb Gutierrez MD Primary Care Provider [...] patient's age to complete this topic Insurance Network [facility] OAP Care Teams Cord Tire Builder Relationship Specialty Start Date End Date Kaleb Gutierrez MD [address] [place] [address] PCP - General Family Medicine 02/21/16 Vladimir Aquino DPM Podiatry 02/21/16
--- OUTSIDE RECORDS SUMMARY | 2025-03-24 00:15 | XMS_ITS | Clinical Summary ---
Author Organization [facility] Address [address] [place] [id number] Care Team Providers Care Storeroom Keeper Name Role Phone Kaleb Gutierrez MD Primary [...] (02/10/2019): Added automatically from request for surgery [id number] Traumatic complete tear of left rotator cuff 11/2018 Overview (02/10/2019): Added automatically from request for surgery [id number] Surgical History Surgery Date Site/Laterality Comments SHOULDER ARTHROSCOPY 07/09/2006 - 07/08/2007 Right rotator cuff repair FOOT SURGERY 07/09/2016 - 07/08/2017 Right HYSTERECTOMY 07/09/2012 - 07/08/2013 partial Medical History Medical History Date Comments Hypertension takes lisinopril , HCTZ 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 Patient stated she had Guill ain-Gillett after a flu shot in her 30s [...] on file Legal Sex Female 4:11 AM [employer] Gender Identity Not on file Sexual Orientation [...] on file Medical Devices Implanted Type Area Rn Cardiac Cath Device Identifier Shelf Expiration Date Model / Serial / Lot [employer] Ar-1927bct Corkscrew Suturetape 5.5mm 14.7mm Bioabsorbable Full Thread 1.3mm - [id number] Implanted:Qty: 1 on 02/27/2019 by Darrin Bryant MD at [facility] Left: Shoulder [employer] 11/05/2020 AR-1927BCT / / [id number] [employer] Ar-1927bct Corkscrew Suturetape 5.5mm 14.7mm Bioabsorbable Full Thread 1.3mm - [id number] Implanted:Qty: 1 on 02/27/2019 by Darrin Bryant MD at [facility] [place] Left: Shoulder [employer] 11/05/2020 AR-1927BCT / / [id number] [employer] Ar-1927bct Corkscrew Suturetape 5.5mm 14.7mm Bioabsorbable Full Thread 1.3mm - [id number] Implanted:Qty: 1 on 02/27/2019 by Darrin Bryant MD at [facility] Left: Shoulder [employer] 11/05/2020 AR-1927BCT / / [id number] [employer] Ar-2324 Bcm Swivelock 4.75mm 24.5mm Self Punch Vent Shoulder [place] Suture - [id number] Implanted:Qty: 1 on 02/27/2019 by Darrin Bryant MD at [facility] [place] Left: Shoulder [employer] 08/08/2020 AR-[id number] / / [id number] [employer] Ar-2324 Bcm Swivelock 4.75mm 24.5mm Self Punch Vent Shoulder [place] Suture - [id number] Implanted:Qty: 1 on 02/27/2019 by Darrin Bryant MD at [facility] [place] Left: Shoulder [employer] 11/05/2020 AR-[id number] / / [id number] Insurance [facility] [facility] [employer] [facility] Care Teams Storeroom Keeper Relationship Specialty Start Date End Date Kaleb Gutierrez MD [address] [facility] [address] [place], [place] [phone] PCP - General 02/25/16
--- NOTE | 2025-03-24 07:12 | WPDHPUPDATE1 ---
History and Physical Update Update Date/Time: 03/24/25 07:12 History and Physical has been reviewed, including an updated exam of the patient. There are NO changes in the patient's condition. Risks, benefits, and alternatives have been discussed and questions answered. Patient agrees to proceed with procedure.
[2025-03-24] MEDS: ACETAMINOPHEN 500 MG TABLET 1000 MG PO (08:25)
[2025-03-24] MEDS: LACTATED RINGERS 1,000 ML 30 ML IV CONT ×2 (08:30→12:25)
[2025-03-24] MEDS: TRANEXAMIC ACID 1,000MG/ISO100 1,000 MG/100 ML BAG 200 MG IVPB (08:35)
--- NOTE | 2025-03-24 09:21 | WPDANESEPPF ---
Anes - Initial Pre Proc Eval Procedure: Operation Date: 03/24/25 10:30 Proposed Procedures p Right Total Knee Arthroplasty - Griffin Burden MD Date/Time: 03/24/25 09:21 Surgeon: Griffin Burden MD Pre Op Diagnosis: primary oa right knee Patient Data Age: 64 Gender: F Height: 1.55 m Weight: 89.8 kg Last Vital Signs Temp 97 F L 03/24/25 08:05 Pulse 60 03/24/25 08:05 Resp 20 03/24/25 08:05 BP 146/69 H 03/24/25 08:05 Pulse Ox 98 03/24/25 08:05 O2 Del Method Room Air 03/24/25 08:05 Allergies Allergy/AdvReac Type Severity Reaction Status Date / Time Influenza Virus Vaccines Allergy Severe guillain Verified 03/24/25 08:52 barre Home Medications ?Medication ?Instructions ?Recorded ?Confirmed ?Type vitamin B12 1,000 mcg-folic acid See Rx Instructions sublingual 05/09/19 03/24/25 Rx 400 mcg sublingual lozenge .COMPLEX #30 ea cholecalciferol (vitamin D3) 25 25 mcg PO DAILY 01/24/23 03/24/25 History mcg (1,000 unit) capsule glucosamine 750 ra-ookergqodme-udd 2 tablet PO DAILY 01/24/23 03/24/25 History no1 625 mg-C 30 mg-alanna 1 mg tablet (Dulmougdzdg-Vcmtbowxumr-JPT) lisinopril 10 See Rx Instructions .Route 01/28/25 03/24/25 Rx mg-hydrochlorothiazide 12.5 mg .COMPLEX #90 tabs tablet Porfirio's wort 300 mg capsule 300 mg PO DAILY 02/11/25 03/24/25 History ascorbic acid (vitamin C) 1,000 mg 1 g PO DAILY 02/11/25 03/24/25 History tablet (C-1000) loratadine 10 mg tablet (Allergy 10 mg PO DAILY 02/11/25 03/24/25 History Relief (loratadine)) magnesium oxide 250 mg PO DAILY 02/11/25 03/24/25 History turmeric 400 mg capsule 400 mg PO DAILY 02/11/25 03/24/25 History acetaminophen 500 mg capsule 1,000 mg (2 x 500 mg) PO Q6H PRN 02/12/25 03/24/25 Rx pain #30 caps calcium carbonate (Antacid Ext Str 300 mg PO BID PRN dyspepsia 03/06/25 03/19/25 History (calcium carb)) diphenhydramine HCl 25 mg capsule 25 mg PO HS PRN allergy symptoms 03/06/25 03/19/25 History (Allergy (diphenhydramine)) fluticasone propionate 50 2 spray intranasal DAILY PRN nasal 03/06/25 03/19/25 History mcg/actuation nasal congestion spray,suspension (Flonase Allergy Relief) Laboratory Tests 03/24/25 08:31 Blood Type A Positive Antibody Screen Pending Patient hx anesthesia problems: none Family hx anesthesia problems: none Results Review: All pre-operative results and documents have been reviewed as part of the pre-operative evaluation. [facility] Past Medical History Medical History Myofascial pain Cervical radiculopathy Cervical spondylosis Cervicalgia History of colon polyps Periorbital cellulitis Complex sleep apnea syndrome Allergic rhinitis History of Guillain-Success syndrome Chronic knee pain Screening for osteoporosis Screening for breast cancer Vitamin D deficiency, unspecified Hematuria Obesity Anemia COLIN (obstructive sleep apnea) Benign essential hypertension Hand paresthesia Surgical History Surgical History History of bunionectomy of left great toe July 2021 History of hysterectomy S/P left rotator cuff repair Family History Family History Mother Family history of malignant neoplasm of breast in first degree relative COPD (chronic obstructive pulmonary disease) Father Lung cancer Throat cancer Social History Social History (Updated 03/19/25 @ 15:06 by Corrine Pickard MA) Smoking status: Never smoker Alcohol intake: never Substance use: never Substance use type: does not use Do You Feel Safe in your Home?: Yes Lack of Transportation: No Lack of Food: Never True Current Housing: I Have Housing Concerned About Future Housing: No Difficulty Paying Gas/Electric Bills: No Difficulty Paying for Meds: No Currently Unemployed: No Education: High School Diploma/GED Difficulty w/ Childcare or Family Care: No Living arrangements: with family Additional living arrangements comments: HUSB Occupation/Education: occupation Gender identity (if verbalized by the patient): Female Sexual Orientation (if Verbalized by the Patient): Straight or Heterosexual Spiritual care concerns: No Agree to blood products: Yes Anes - Eval Final PreProcedure Day of Procedure 03/24/25 09:21 Patient weight: obese Lungs: normal air movement Airway: Mallampati scale class II Neurological: alert and oriented Last oral intake: >/= 8 hours ASA classification: III Emergent: no Anesthetic plan: proceed Anesthesia type and monitoring: general LMA and standard monitoring Results Review: All pre-operative results and documents have been reviewed as part of the pre-operative evaluation. HTN, COLIN on CPAP, BMI 37, hx of Guillane barre when pt was in her 20s. Pt had stress test 01/30, read essentially nml. She tells me that Dr Sol reviewed and stated it was nml and cleared her for surgery. Informed Consent: The patient's anesthetic plan and its attendant risks and benefits were discussed with the patient/family/POA. Questions were solicited and answers provided to the satisfaction of the patient/family/POA.
[2025-03-24] MEDS: ceFAZolin 2 GM in SODIUM CHLORIDE 0.9% IV 50 ML 100 ML IVPB ×2 (10:05→18:23)
[2025-03-24] MEDS: SODIUM CHLORIDE 0.9% IV 37.7 ML, MORPHINE SULFATE INJ (*CRX) 2 MG, ROPivacaine HCL 1% 2... INFILTRATE (10:30)
[2025-03-24] MEDS: fentaNYL CITRATE INJ (*CRX) 100 MCG/2 ML VIAL 25 MCG IV PUSH ×6 (12:35→13:42)
--- NOTE | 2025-03-24 14:06 | ADMGEN ---
This patient, Nancy Chavis, was admitted to 2 Medical Room 240-01. Patient/family oriented to hospital policies and general routines including ID bracelet, bed and alarms, visiting hours, pain management, procedures, bathroom and other care routines, personal items, smoking policy, room service/diet, and visiting hours. Information on how to activate the Rapid Response Team has been discussed. Patient/Family are encouraged to report perceived risks to care and to ask questions if they do not understand what they are told or what they should do.
[2025-03-24] MEDS: SODIUM CHLORIDE 0.9% IV 1,000 ML 125 ML IV CONT (14:28)
[2025-03-24] MEDS: ACETAMINOPHEN 325 MG TABLET 650 MG PO ×2 (14:34→21:29)
[2025-03-24] MEDS: oxyCODONE/ACETAMINOPHEN (*CRX) 10-325 MG TABLET 1 TAB PO (14:34)
--- NOTE | 2025-03-24 15:06 | W.PM.PROC2 ---
Procedure Note - Detailed Date of Procedure 03/24/25 Pre-op Diagnosis Right knee degenerative arthritis. Post-op Diagnosis Same Procedure Performed Calipered, kinematically aligned total knee replacement right knee. Surgeon Griffin Burden MD Property Utilization Manager Wendy Adamson PA-C Anesthesia General Findings According to the calipered kinematic alignment principles, the knee was balanced by the following verification checks incorporating 6 caliper measurements, using an insert goniometer to select the insert thickness, and adjusting the tibial resection following the kinematic alignment algorithm (see figure 160.10 published in [employer] chapter on kinematic alignment total knee arthroplasty.) The steps verified the femoral and tibial components were kinematically aligned coincident to the patient's pre arthritic joint lines, which closely restored the belkofski tibial compartment forces and ligament laxities without ligament release. The [employer] Lending[employer] knee, designed specifically for kinematic alignment, fit optimally. Severe valgus disease and wear. Extraarticular IT band release performed. Popliteus released. PCL intact. 1 degree external rotation added to address chronic patellar subluxation. The record of verification checks were documented and scanned into the chart. Distal Femoral Resection: Distal Medial 6 mm(cartilage worn), Distal Lateral 6 mm(cartilage worn) Target thickness of 8mm Unworn, 6mm Worn (No Cartilage). Posterior Femoral Resection: Posterior Medial 7 mm, Posterior Lateral 5 mm(cartilage worn) Target thickness of 7mm Unworn, 5mm Worn (No Cartilage). Description of Procedure General anesthesia was administered. A well-padded tourniquet was placed high on the thigh. The limb was prepped and draped in the usual sterile fashion. The limb was exsanguinated and the tourniquet inflated to 300 mmHgduring exposure and cementation. A longitudinal incision was created over the midline of the knee. Sharp dissection was taken through subcutaneous tissues. Electrocautery was used for hemostasis. A trivector approach to the knee joint was performed. The ACL, anterior horns of the menisci, and fat pad were excised, and a subperiosteal dissection was carried along the posterior medial border of the tibia. Starting midway between the top of the notch in the anterior femoral cortex, I drilled a 9 mm diameter hole parallel to the anterior cortex to minimize flexion of the femoral component and promote patella tracking. I verified the existence of a 5-10 mm bone bridge between the posterior aspect of the hole and the anterior limit of the intercondylar notch. An intraosseous positioning enrique was inserted 10 cm into the femur perpendicular to the distal joint line and parallel to the anterior cortex. I used a distal femoral referencing guide that compensated 2 mm when the cartilage was worn on the distal medial femoral condyle, and 2 mm when the cartilage was worn on the distal lateral femoral condyle. The basis for setting the distal and posterior femoral resection guide is knowing that the varus and valgus grade II to IV Kellegren-Evelio osteoarthritic knees have negligible bone wear at 0? and 90? and that the mean full-thickness cartilage wear approximates 2 mm. I measured the thickness of distal femoral resections with a caliper to +/- 0.5 mm. The thickness of each resection was adjusted to match the thickness of the respective condyle of the femoral component within 0.5 mm of target after compensating for cartilage wear and kerf. When the distal resection was 1-2 mm too thin, a recut guide was used to adjust the cut. When the distal resection was too thick, a 1 or 2 mm thick washer was fixed to the back of the 4-in-1 chamfer block to jacey a corrective gap between the femoral component and distal femur. I set posterior femoral referencing guide at 0? orientation to position the pin holes for the 4 in 1 chamfer block. The aryan wing measured the width of the distal femoral resection and selected the size of the 4 in 1 chamfer block and femoral component. The AP sizer confirmed the size. I measured the thickness of the posterior femoral resections with a caliper before making the anterior and chamfer cuts. I adjusted the thicknesses of each resection to match the thickness of the respective condyle of the femoral component within +/-0.5 mm after compensating for cartilage wear and curve. When a posterior resection femoral resection was 1-2 mm too thick or thin a corrective correction was made by shifting or rotating the 4 in 1 chamfer block as needed. The chamfer block was secured in the correct position with compression screws. The anterior and chamfer femoral resections were made. These caliper measurements and corrections verified that the femoral component was set coincident with the patient's pre-arthritic distal and posterior femoral joint lines. I removed all the medial and lateral femoral and tibial osteophytes to restore the pre arthritic length of the medial and lateral collateral ligaments. I cindy AP lines along the major axis of the lateral tibial plateau in between the tibial spines which identified the flexion extension plane of the knee. A conventional extramedullary tibial resection guide was applied to the ankle. An aryan wing was placed medially in the saw slot. The varus valgus angle of the tibial resection guide was adjusted until the guide paralleled the proximal tibial articular surface after compensating for cartilage and bone wear. The slope of flexion extension angle of the tibial resection guide was adjusted until the aryan wing paralleled the slope of the medial tibia after compensating for wear. The AP axis of the tibial resection guide was adjusted parallel to the two lines. The proximal tibia was resected, partially releasing the insertion of the posterior cruciate ligament. The thickness of the medial and lateral lateral tibial condyle was measured at the base of the tibial spines. I visually verified the slope of the medial border of the resection was parallel to the patient's pre arthritic slope after compensating for cartilage and bone wear. I removed the remnants of the posterior horns of the menisci and posterior osteophytes and cauterized the inferior lateral genicular vessels. The Aquamantys bipolar device was also used to for additional hemostasis. When the knee had a preoperative flexion contracture of 20? or more I teased the capsule off the posterior femur with a curved 3 quarter-inch osteotome. I administered the posterior femoral periosteal injection by delivering 10 cc using a 20 gauge spinal needle at the most medial and 10 cc at the most lateral femoral spur surface which reduced the risk of injury to the posterior neurovascular structures. I followed 6 options in a decision tree to fine tune the varus valgus and posterior slope orientation of the tibial component to restore the patient's pre arthritic tibial joint line and limb alignment. First, I adjusted the varus-valgus orientation of the proximal tibia resection working in 1 degree to 2 degree increments until there was negligible medial and lateral lift off of the distal femoral and proximal tibial resection from the spacer block during a varus valgus laxity assessment in extension. I selected the largest anatomic shape trial tibial base plate that fit within the cortical boundary of the proximal tibial resection. The base plate was best fit parallel to the cortical boundary which set the Internal-external orientation of the anterior to posterior and medial to lateral positions. The best fit method set the AP axis of the tibial base plate and insert parallel to the flexion extension plane of the pre arthritic knee. I pinned the trial tibial base plate, prepared the cruciate slot, and fixed the base plate to the tibia with the cruciate stem. I inserted the trial femoral component. The knee was placed in full extension. Varus valgus laxity is of the knee with trial components were assessed. When asymmetric laxity was observed a 1-2 degree varus or valgus recut guide was used to fine tune the tibial resection until the laxity was 1 degree or less in full extension like the belkofski knee. The following steps determined the optimal insert thickness within +/-1 mm. First I inserted an insert goniometer that matched the thickness of the spacer block. I reduced the patella and then with the knee in maximum extension, I verified the knee hyperextended a few degrees and had negligible varus valgus laxity, like the pre arthritic knee. Next, I measured the external tibial orientation which was the angle the insert goniometer intersected the sagittal line on the medial condyle of the femoral trial component. Then with the knee in 15-30 degrees flexion I verified a 3-4 mm gap in the lateral compartment and no gap in the medial compartment during a 2nd varus valgus laxity test. Next, I placed the knee in 90? of flexion and the foot resting on the operating table and measured the internal tibial orientation. I repeated the steps until I identified the insert thickness that provided the highest external tibia orientation in extension and the highest internal tibial orientation at 90? flexion without anterior lift-off of the insert from the tibial base plate. The insert with this thickness was implanted. I applied a posterior drawer test with the tibia distracted by gravity and verified no posterior subluxation of the tibia relative to the femur. The thickness of the belkofski patella was measured with a caliper. The patella was resected using the oscillating saw. The best fitting anatomic patella button was selected. The fixation holes were drilled. When the patella and patella buttons combined thickness was thicker than the belkofski patella, the patella was recut. The patella remained centered on the trochlea and tracked well throughout the entire arc of flexion and extension. I used pulse lavage to clean the bony surfaces of debris and dried bone. I cemented the tibial, femoral, and patellar components using 1 bag of methylmethacrylate with Gentamycin, then rechecked the stability at full extension, 15-30 degrees, and 90? flexion and verified gnosticism of the entire arc of motion of the knee. The circulating nurse confirmed the sponge and needle counts were correct. I used pulse lavage to rinse the joint and wound. The extensor mechanism was closed with interrupted #1 Vicryl suture and #1 running Stratafix suture. The subcutaneous layer was closed with interrupted #1 Vicryl suture followed by 2-0 Stratafix and 3-0 Stratafix. Steri-Strips placed on the skin. Silver impregnated occlusive dressing applied to the wound. A light gauze wrap and Naseem bandage were placed. The patient was transferred to the recovery room in stable condition. There were no complications. Implants Medacta GMK spheriKA Femoral component SpheriKA size 3+, tibial component size t4i3, vitamin-E flex insert, thickness 13mm, Janet patella implant size 2. Estimated Blood Loss 20 Drains No Pathology None sent Complications No immediate complications Condition Stable Disposition PACU [facility] Billing Surgery - Charge Forward: Surgery Billing
[2025-03-24] MEDS: ONDANSETRON INJ 4 MG/2 ML VIAL IV PUSH ×2 (17:12→21:28)
[2025-03-24] MEDS: SENNA/DOCUSATE SODIUM TABLET 2 TAB PO (18:23)
[2025-03-24] MEDS: FAMOTIDINE 20 MG TABLET PO (21:29)
[2025-03-24] MEDS: ASPIRIN 81 MG ENTERIC TABLET PO (21:29)
[2025-03-25] MEDS: ceFAZolin 2 GM in SODIUM CHLORIDE 0.9% IV 50 ML 100 ML IVPB ×2 (01:42→10:39)
[2025-03-25] MEDS: ACETAMINOPHEN 325 MG TABLET 650 MG PO ×2 (01:43→07:55)
[2025-03-25 03:32] VITALS: BP 149/76; PULSE 79; RESP 16; TEMP 36.9; O2SAT 98
[2025-03-25 05:01] LABS: Hematocrit 28.3 % (37.0-47.0); Hemoglobin 9.2 g/dL (12.0-15.0); Immature Granulocyte Percent A 0.6 % (0-0.5); Lymphocytes Absolute Auto 1.18 K/mm3 (0.9-3.2); Mean Corpuscular HGB Conc 32.5 g/dl (32-36); Mean Corpuscular Hemoglobin 30.3 pg (26-34); Mean Corpuscular Volume 93.1 fl (80-100); Nucleated Red Blood Cells Absolute Auto 0.000 K/mm3 (0.0-0.012); Nucleated Red Blood Cells Perc 0.0 % (0.0-0.2); Platelet Count Result 232 k/mm3 (150-375); Red Blood Count 3.04 M/mm3 (4.2-5.4); White Blood Count 16.4 K/mm3 (4.5-10.0)
[2025-03-25 05:06] LABS: Anion Gap 5 mmol/L (4-12); Blood Urea Nitrogen 17 mg/dL (7-17); Calcium 9.0 mg/dL (8.4-10.2); Carbon Dioxide 24 mmol/L (22-30); Chloride 103 mmol/L (98-107); Estimated CRCL calculation 70 ml/min; Estimated Glomerular Filt Rate > 60; Glucose 118 mg/dL (65-110); Potassium 4.3 mmol/L (3.4-5.0); Sodium 132 mmol/L (137-145)
[2025-03-25 07:32] VITALS: BP 153/76; PULSE 72; RESP 14; TEMP 37; O2SAT 99
[2025-03-25] MEDS: ASPIRIN 81 MG ENTERIC TABLET PO (07:55)
[2025-03-25] MEDS: LORATADINE 10 MG TABLET PO (07:56)
[2025-03-25] MEDS: FAMOTIDINE 20 MG TABLET PO (07:56)
[2025-03-25] MEDS: SENNA/DOCUSATE SODIUM TABLET 2 TAB PO (07:56)
[2025-03-25] MEDS: oxyCODONE/ACETAMINOPHEN (*CRX) 5-325 MG TABLET 1 TABLET PO (07:56)
[2025-03-25] MEDS: HYDROmorphone HCL INJ (*CRX) 1 MG/ML SYR IV PUSH (10:40)
== END 2025-03-25 13:20 | disposition home or self-care (01) ==
LOC: ANHSURGERY 09:45 → ANH2MED 13:56
PROVIDERS: Physician Assistant Surgical; PCP Nurse Practitioner Family; Visit Provider Orthopaedic Surgery
PROC: (CPT 27447; principal; 2025-03-24 10:30)
DX: M17.11 Unilateral primary osteoarthritis, right knee (principal); M25.761 Osteophyte, right knee; I10 Essential (primary) hypertension; E55.9 Vitamin D deficiency, unspecified; D64.9 Anemia, unspecified; G47.33 Obstructive sleep apnea (adult) (pediatric); G61.0 Guillain-Barre syndrome; M79.18 Myalgia, other site; G89.29 Other chronic pain; E66.9 Obesity, unspecified; Z68.37 Body mass index [BMI] 37.0-37.9, adult; Z99.89 Dependence on other enabling machines and devices; Z98.890 Other specified postprocedural states; Z86.0100 Personal history of colon polyps, unspecified; Z80.3 Family history of malignant neoplasm of breast; Z80.1 Family history of malignant neoplasm of trachea, bronchus and lung
CPT/HCPCS: 27447; 36415; 73560; 80048; 85025; 86850; 86880; 86900; 86901; 86902; 86922; 97110; 97161; 97165; 97530; 97535; C1776; J0690; A9270; C1713; J0166; J1100; J1171; J1885; J2270; J2405; J2704; J2795; J3010; J7030; J7120; J7512